=== PATIENT | female | born 1955 | race Caucasian/White ===

== ENCOUNTER 2018-10-23 17:07 | Emergency (ER) | payer OTHER ==
[2018-10-23] MEDS ORDERED: predniSONE 20 MG TAB ONE (19:44)
[2018-10-23] MEDS ORDERED: LEVALBUTEROL 1.25 MG/3 ML NEB ONE (19:44)
--- NOTE | 2018-10-23 20:17 | RAD REPORT ---
EXAM DESCRIPTION: Jose Maria De La Rosa (2 Views)10/23/2018 7:48 pm CLINICAL HISTORY: Cough COMPARISON: None FINDINGS: The lungs appear clear of acute infiltrate. The heart is normal size IMPRESSION: No acute abnormalities displayed
--- NOTE | 2018-10-23 20:21 | ER ---
Nurse's Notes [facility] Name: Dottie Cruz Age: 63 yrs Sex: Female : 1955 Arrival Date: 10/23/2018 Time: 17:09 Bed 5 Private MD: Dwight Gillespie T Diagnosis: Bronchitis, not specified as acute or chronic Presentation: 10/23 18:03 Presenting complaint: Patient states: Cough, body aches, general malaise for 3 days. aj Transition of care: patient was not received from another setting of care. Onset of symptoms was October 20, 2018. Risk Assessment: Do you want to hurt yourself or someone else? Patient reports no desire to harm self or others. Initial Sepsis Screen: Does the patient meet any 2 criteria? HR > 90 bpm. No. Patient's initial sepsis screen is negative. Does the patient have a suspected source of infection? No. Patient's initial sepsis screen is negative. Care prior to arrival: None. 18:03 Method Of Arrival: Ambulatory aj 18:03 Acuity: YANG 3 aj Triage Assessment: 18:04 General: Appears in no apparent distress. comfortable, Behavior is calm, cooperative, aj appropriate for age. Pain: Denies pain. EENT: Reports nasal congestion nasal discharge. Neuro: Level of Consciousness is awake, alert, obeys commands, Oriented to person, place, time, situation, Appropriate for age. Respiratory: Reports cough that is Airway is patent Respiratory effort is even, unlabored, Respiratory pattern is regular, symmetrical. Derm: Skin is intact, is healthy with good turgor, Skin is pink, warm \T\ dry. normal. Historical: - Allergies: 18:04 No Known Allergies; aj - Home Meds: 18:04 hydrocodone-acetaminophen 7.5-325 mg Oral tab twice a day [Active]; Baclofen Oral aj [Active]; - PMHx: 18:04 Chronic pain; aj - PSHx: 18:04 Tubal ligation; aj - Immunization history:: Adult Immunizations up to date. - Social history:: Smoking status: Patient uses tobacco products, smokes one pack cigarettes per day. - Ebola Screening: : Patient negative for fever greater than or equal to 101.5 degrees Fahrenheit, and additional compatible Ebola Virus Disease symptoms Patient denies exposure to infectious person Patient denies travel to an Ebola-affected area in the 21 days before illness onset No symptoms or risks identified at this time. Screenin:38 Abuse screen: Denies threats or abuse. Denies injuries from another. Nutritional lp1 screening: No deficits noted. Tuberculosis screening: No symptoms or risk factors identified. Fall Risk None identified. Assessment: 19:36 General: Appears in no apparent distress. Behavior is appropriate for age. Pain: lp1 Complains of pain in chest Aggravated by coughing. Neuro: Level of Consciousness is awake, alert, obeys commands, Oriented to person, place, time, situation. Cardiovascular: Patient's skin is warm and dry. Respiratory: Reports cough that is non-productive, persistent Respiratory effort is even, Respiratory pattern is regular, Breath sounds are coarse bilaterally. GI: : No signs and/or symptoms were reported regarding the genitourinary system. EENT: No signs and/or symptoms were reported regarding the EENT system. Derm: Skin is pink, warm \T\ dry. Musculoskeletal: No deficits noted. Vital Signs: 18:04 BP 155 / 93; Pulse 113; Resp 20; Temp 97.9; Pulse Ox 97% on R/A; Weight 65.77 kg; aj Height 5 ft. 0 in. (152.40 cm); 19:38 BP 153 / 97; Pulse 107; Resp 20; Pulse Ox 96% on R/A; lp1 18:04 Body Mass Index 28.32 (65.77 kg, 152.40 cm) aj ED Course: 17:09 Patient arrived in ED. sb2 17:09 Dwight Gillespie MD is Private Physician. sb2 18:04 Triage completed. aj 18:04 Arm band placed on left wrist. Patient placed in waiting room, Patient notified of wait aj time. Labs ordered per protocol. 19:06 Ike Dominique MD is Attending Physician. kdr 19:13 Beatrice Macdonald, ANTONELLA is Primary Nurse. lp1 19:38 Patient has correct armband on for positive identification. lp1 19:47 Chest Pa And Lat (2 Views) XRAY In Process Unspecified. EDMS 20:19 Dwight Gillespie MD is Referral Physician. kdr 20:30 No provider procedures requiring assistance completed. Patient did not have IV access lp1 during this emergency room visit. Administered Medications: 19:40 Drug: predniSONE 60 mg Route: PO; tl2 20:30 Follow up: Response: No adverse reaction lp1 20:00 Drug: Xopenex (3) 1.25 mg Route: Inhalation; tl2 Outcome: 20:20 Discharge ordered by . kdr 20:30 Discharged to home ambulatory. lp1 20:30 Condition: good 20:30 Discharge instructions given to patient, Instructed on discharge instructions, follow up and referral plans. medication usage, Demonstrated understanding of instructions, follow-up care, medications, Prescriptions given X x 5 20:31 Patient left the ED. lp1 Signatures: Dispatcher [employer] Maribell Meehan, RN RN Ike Ortiz MD MD kdr Pena, Laura, RN RN lp1 Alicia Katz RN RN tl2 Nicki Pedraza sb2
--- NOTE | 2018-10-23 20:21 | EDPHYS ---
Physician Documentation [facility] Name: Dottie Cruz Age: 63 yrs Sex: Female : 1955 Arrival Date: 10/23/2018 Time: 17:09 Bed 5 Private MD: Dwight Gillespie T ED Physician Ike Dominique HPI: 10/23 19:15 This 63 yrs old Female presents to ER via Ambulatory with complaints of kdr Weakness, Non-Productive Cough. 19:16 The patient or guardian reports airway noise, cough, that is intermittent, described as kdr mild, described as moderate, difficulty breathing, flu symptoms, arthralgias, myalgias, no appetite. Onset: The symptoms/episode began/occurred gradually, 3 day(s) ago. Modifying factors: The symptoms are alleviated by nothing. the symptoms are aggravated by nothing. Associated signs and symptoms: Pertinent positives: Pertinent negatives: chest pain, diarrhea, ear ache, fever, nausea, rhinorrhea, sore throat, vomiting. Severity of symptoms: At their worst the symptoms were mild moderate this morning, in the emergency department the symptoms are unchanged. The patient has not experienced similar symptoms in the past. The patient has not recently seen a physician. The patient states that she was exposed to strep in the last few days but that she does not believe she has strep. Historical: - Allergies: 18:04 No Known Allergies; aj - Home Meds: 18:04 hydrocodone-acetaminophen 7.5-325 mg Oral tab twice a day [Active]; Baclofen Oral aj [Active]; - PMHx: 18:04 Chronic pain; aj - PSHx: 18:04 Tubal ligation; aj - Immunization history:: Adult Immunizations up to date. - Social history:: Smoking status: Patient uses tobacco products, smokes one pack cigarettes per day. - Ebola Screening: : Patient negative for fever greater than or equal to 101.5 degrees Fahrenheit, and additional compatible Ebola Virus Disease symptoms Patient denies exposure to infectious person Patient denies travel to an Ebola-affected area in the 21 days before illness onset No symptoms or risks identified at this time. ROS: 19:18 Constitutional: Negative for fever, chills, and weight loss, Eyes: Negative for injury, kdr pain, redness, and discharge, Neck: Negative for injury, pain, and swelling, Cardiovascular: Negative for chest pain, palpitations, and edema, Abdomen/GI: Negative for abdominal pain, nausea, vomiting, diarrhea, and constipation, Back: Negative for injury and pain, : Negative for injury, bleeding, discharge, and swelling, MS/Extremity: Negative for injury and deformity, Skin: Negative for injury, rash, and discoloration, Neuro: Negative for headache, weakness, numbness, tingling, and seizure activity. Psych: Negative for depression, anxiety, suicide ideation, homicidal ideation, and hallucinations, Allergy/Immunology: Negative for hives, rash, and allergies, Endocrine: Negative for neck swelling, polydipsia, polyuria, polyphagia, and marked weight changes, Hematologic/Lymphatic: Negative for swollen nodes, abnormal bleeding, and unusual bruising. 19:18 ENT: Positive for nasal discharge, rhinorrhea, Negative for ear pain, Teeth pain tinnitus, sinus congestion, sinus pain. 19:18 Respiratory: Positive for cough, with no reported sputum, dyspnea on exertion, shortness of breath, at rest. wheezing, expiratory, of the right upper lobe, left upper lobe, right middle lobe, left lower lobe, right lower lobe, left posterior lower lobe, right posterior middle lobe and right posterior lower lobe, Negative for hemoptysis, orthopnea, pleurisy. Exam: 19:18 Constitutional: This is a well developed, well nourished patient who is awake, alert, kdr and in no acute distress. Head/Face: Normocephalic, atraumatic. Eyes: Pupils equal round and reactive to light, extra-ocular motions intact. Lids and lashes normal. Conjunctiva and sclera are non-icteric and not injected. Cornea within normal limits. Periorbital areas with no swelling, redness, or edema. Neck: Trachea midline, no thyromegaly or masses palpated, and no cervical lymphadenopathy. Supple, full range of motion without nuchal rigidity, or vertebral point tenderness. No Meningismus. Chest/axilla: Normal chest wall appearance and motion. Nontender with no deformity. No lesions are appreciated. Abdomen/GI: Soft, non-tender, with normal bowel sounds. No distension or tympany. No guarding or rebound. No evidence of tenderness throughout. Back: No spinal tenderness. No costovertebral tenderness. Full range of motion. Skin: Warm, dry with normal turgor. Normal color with no rashes, no lesions, and no evidence of cellulitis. MS/ Extremity: Pulses equal, no cyanosis. Neurovascular intact. Full, normal range of motion. Neuro: Awake and alert, GCS 15, oriented to person, place, time, and situation. Cranial nerves II-XII grossly intact. Motor strength 5/5 in all extremities. Sensory grossly intact. Cerebellar exam normal. Normal gait. Psych: Awake, alert, with orientation to person, place and time. Behavior, mood, and affect are within normal limits. 19:18 Cardiovascular: Rate: tachycardic, Rhythm: regular, Pulses: no pulse deficits are appreciated, Heart sounds: normal. 19:18 Respiratory: the patient does not display signs of respiratory distress, Respirations: normal, Breath sounds: rales, bronchial sounds, that are mild, that are moderate, are heard diffusely, are heard in the left lower lobe, right lower lobe, left posterior lower lobe, right posterior middle lobe and right posterior lower lobe, rhonchi, that are moderate, are located in both bases, wheezing: that is mild, is heard in the left lower lobe, right lower lobe, left posterior lower lobe, right posterior middle lobe and right posterior lower lobe, Respiratory rate: 20 Vital Signs: 18:04 BP 155 / 93; Pulse 113; Resp 20; Temp 97.9; Pulse Ox 97% on R/A; Weight 65.77 kg; aj Height 5 ft. 0 in. (152.40 cm); 19:38 BP 153 / 97; Pulse 107; Resp 20; Pulse Ox 96% on R/A; lp1 18:04 Body Mass Index 28.32 (65.77 kg, 152.40 cm) aj MDM: 20:20 Patient medically screened. kdr 20:22 Data reviewed: vital signs, nurses notes, lab test result(s), radiologic studies. kdr Counseling: I had a detailed discussion with the patient and/or guardian regarding: the historical points, exam findings, and any diagnostic results supporting the discharge/admit diagnosis, lab results, radiology results, the need for outpatient follow up. Special discussion: I discussed with the patient/guardian in detail that at this point there is no indication for admission to the hospital. It is understood, however, that if the symptoms persist or worsen the patient needs to return immediately for re-evaluation. ED course: The patient was feeling better. Will give abx since the patient is a smoker. 10/23 18:03 Order name: Flu; Complete Time: 19:06 aj 10/23 18:03 Order name: Strep; Complete Time: 19:06 aj 10/23 18:06 Order name: Chest Pa And Lat (2 Views) XRAY; Complete Time: 20:18 aj 10/23 18:43 Order name: Throat Culture EDMS Administered Medications: 19:40 Drug: predniSONE 60 mg Route: PO; tl2 20:30 Follow up: Response: No adverse reaction lp1 20:00 Drug: Xopenex (3) 1.25 mg Route: Inhalation; tl2 Disposition: 10/23/18 20:20 Discharged to Home. Impression: Bronchitis, not specified as acute or chronic. - Condition is Stable. - Discharge Instructions: How to Use an Inhaler, Upper Respiratory Infection, Adult, Acute Bronchitis, [id number]. - Prescriptions for Tessalon Perles 100 mg Oral Capsule - take 1 capsule by ORAL route every 8 hours As needed; 15 capsule. Zithromax Z- Flavio 250 mg Oral Tablet - take 1 tablet by ORAL route as directed for 5 days Day 1 - take two (2) tablets one time. Day 2, 3, 4 , 5 take one (1) tablet once daily.; 6 tablet. Medrol (Flavio) 4 mg Oral Tablets, Dose Pack - take 1 tablet by ORAL route as directed - follow package instructions; 1 packet. Albuterol Sulfate 90 mcg/actuation - inhale 1-2 puff by INHALATION route every 4-6 hours; 1 Inhaler. Guaifenesin AC 10- 100 mg/5 mL Oral Liquid - take 10 milliliter by ORAL route every 4 hours As needed; 240 milliliter. - Medication Reconciliation Form, Thank You Letter, Antibiotic Education, Prescription Opioid Use form. - Follow up: Dwight Gillespie MD; When: 2 - 3 days; Reason: If symptoms return, Further diagnostic work-up, Recheck today's complaints, Continuance of care, Re-evaluation by your physician. - Problem is new. - Symptoms have improved. Signatures: Dispatcher [employer] EDMS Maribell Cid RN RN Ike Ortiz MD MD kdr Pena, Laura, RN RN lp1 Alicia Katz RN RN tl2 Corrections: (The following items were deleted from the chart) 20:31 20:20 10/23/2018 20:20 Discharged to Home. Impression: Bronchitis, not specified as lp1 acute or chronic. Condition is Stable. Forms are Medication Reconciliation Form, Thank You Letter, Antibiotic Education, Prescription Opioid Use. Follow up: Dwigth Gillsepie; When: 2 - 3 days; Reason: If symptoms return, Further diagnostic work-up, Recheck today's complaints, Continuance of care, Re-evaluation by your physician. Problem is new. Symptoms have improved. kdr
== END 2018-10-23 20:31 | disposition home or self-care (01) ==
LOC: ER 17:07
DX: J40 Bronchitis, not specified as acute or chronic (principal); F17.210 Nicotine dependence, cigarettes, uncomplicated; G89.29 Other chronic pain; Z79.891 Long term (current) use of opiate analgesic
CPT/HCPCS: 71046; 87070; 87081; 87804; 99284; J7512

== ENCOUNTER 2019-04-18 21:57 | Emergency (ER) | payer OTHER, SELFPAY ==
[2019-04-18] MEDS ORDERED: NA CHLORIDE 0.9% 1,000 ML ONE (23:10)
[2019-04-18] MEDS ORDERED: DEXAMETHASONE 10 MG/ML VIAL ONE (23:10)
[2019-04-18] MEDS ORDERED: ONDANSETRON 4 MG/2 ML VIAL ONE (23:10)
[2019-04-18 23:22] LABS: Absolute Lymphocytes (CBC) 2.2 K/uL (0.7-4.9); Basophils % 0.9 % (0-1.3); Eosinophils % 2.8 % (0-4.4); Hematocrit 38.8 % (36.0-45.0); Lymphocytes % 34.1 % (15.3-44.8); MPV 9.5 fL (7.6-11.3); Monocytes % 7.7 % (3.3-12.3)
[2019-04-18 23:23] LABS: Protime INR 0.97
[2019-04-18 23:39] LABS: ALT/SGPT 29 U/L (12-78); AST/SGOT 16 U/L (15-37); Albumin 3.7 g/dL (3.4-5.0); Alkaline Phosphatase 86 U/L (45-117); BUN Blood Urea Nitrogen 18 mg/dL (7-18); Bicarbonate 24 mmol/L (21-32); Bilirubin Direct < 0.1 mg/dL (0-0.2); Bilirubin Total 0.2 mg/dL (0.2-1.0); Glucose Level 98 mg/dL (74-106); Potassium 3.7 mmol/L (3.5-5.1); Protein, Total 6.6 g/dL (6.4-8.2); Sodium Level 143 mmol/L (136-145)
[2019-04-19 01:08] LABS: Urine Blood TRACE (NEG); Urine Glucose NEGATIVE (NEG); Urine Protein NEGATIVE (NEG); Urine Specific Gravity 1.015 (1.005-1.030)
--- NOTE | 2019-04-19 01:18 | ER ---
Nurse's Notes [facility] Name: Dottie Cruz Age: 64 yrs Sex: Female : 1955 Arrival Date: 04/18/2019 Time: 21:58 Bed 18 Private MD: Dwight Gillespie T Diagnosis: chronic headaches;elevated blood pressure (Hypertension) Presentation: 04/18 22:00 Presenting complaint: Patient states: "I've been having headache, blurred vision and cc3 chest tightness all day today and when I checked my blood pressure at home it was high". Transition of care: patient was not received from another setting of care. Onset of symptoms was April 18, 2019. Risk Assessment: Do you want to hurt yourself or someone else? Patient reports no desire to harm self or others. Initial Sepsis Screen: Does the patient meet any 2 criteria? No. Patient's initial sepsis screen is negative. Does the patient have a suspected source of infection? No. Patient's initial sepsis screen is negative. Care prior to arrival: Medication(s) given: Tylenol, 2 tabs about an hour ago at home took BC powder (Aspirin powder) at home an hour ago; Carvedilol 3.125 mg taken at 1700H today. 22:00 Method Of Arrival: Ambulatory cc3 22:00 Acuity: YANG 3 cc3 Triage Assessment: 22:00 General: Appears in no apparent distress. uncomfortable, Behavior is calm, cooperative, cc3 appropriate for age. Pain: Complains of pain in head. EENT: Reports blurred vision since whole day today. Neuro: Level of Consciousness is awake, alert, obeys commands, Oriented to person, place, time, situation, Appropriate for age. Cardiovascular: Capillary refill < 3 seconds Patient's skin is warm and dry. Respiratory: Airway is patent Respiratory effort is even, unlabored, Respiratory pattern is regular, symmetrical. GI: Abdomen is round non-distended. : No signs and/or symptoms were reported regarding the genitourinary system. Derm: Skin is intact, is healthy with good turgor, Skin is pink, warm \\T\\ dry. normal. Musculoskeletal: Circulation, motion, and sensation intact. Range of motion: intact in all extremities. Historical: - Allergies: 22:00 No Known Allergies; cc3 - Home Meds: 22:00 Baclofen Oral [Active]; hydrocodone-acetaminophen 7.5-325 mg Oral tab twice a day cc3 [Active]; carvedilol 3.125 mg oral tab 1 tab 2 times per day [Active]; - PMHx: 22:00 Chronic pain; Hypertension; torn ACL; herniated disk; cc3 - PSHx: 22:00 Tubal ligation; cc3 - Immunization history:: Adult Immunizations not up to date. - Social history:: Smoking status: Patient uses tobacco products, smokes one pack cigarettes per day. - Ebola Screening: : No symptoms or risks identified at this time. - Family history:: not pertinent. - Hospitalizations: : No recent hospitalization is reported. Screenin:00 Abuse screen: Denies threats or abuse. Denies injuries from another. Nutritional cc3 screening: No deficits noted. Tuberculosis screening: No symptoms or risk factors identified. Fall Risk Ambulatory Aid- None/Bed Rest/Nurse Assist (0 pts). Gait- Normal/Bed Rest/Wheelchair (0 pts) Mental Status- Oriented to own ability (0 pts). Assessment: 22:00 Pain: Complains of pain in head Pain radiates to bilateral eyes Pain currently is 5 out cc3 of 10 on a pain scale. Quality of pain is described as aching, Pain began headache whole day today. 23:30 Reassessment: Patient appears in no apparent distress at this time. Patient and/or cc3 family updated on plan of care and expected duration. Pain level reassessed. Patient is alert, oriented x 3, equal unlabored respirations, skin warm/dry/pink. 04/19 00:10 Reassessment: Patient appears in no apparent distress at this time. Patient and/or cc3 family updated on plan of care and expected duration. Pain level reassessed. Patient is alert, oriented x 3, equal unlabored respirations, skin warm/dry/pink. Patient taken by sound effects technician to their department by wheelchair. Patient denies pain at this time. Patient states feeling better. Patient states symptoms have improved. 00:32 Reassessment: Patient appears in no apparent distress at this time. Patient and/or cc3 family updated on plan of care and expected duration. Pain level reassessed. Patient is alert, oriented x 3, equal unlabored respirations, skin warm/dry/pink. Patient came back from CT scan department, awaiting result. 01:07 Reassessment: Patient appears in no apparent distress at this time. Patient and/or cc3 family updated on plan of care and expected duration. Pain level reassessed. Patient is alert, oriented x 3, equal unlabored respirations, skin warm/dry/pink. 01:30 Reassessment: Patient appears in no apparent distress at this time. Patient and/or cc3 family updated on plan of care and expected duration. Pain level reassessed. Patient is alert, oriented x 3, equal unlabored respirations, skin warm/dry/pink. Dr. Hook discharged the patient home with prescription given. IV cannula removed and patient left ER vitally stable and ambulatory. Patient denies pain at this time. Patient states feeling better. Patient states symptoms have improved. Vital Signs: 04/18 22:00 BP 188 / 113; Pulse 91; Resp 20 S; Temp 98.2(O); Pulse Ox 99% on R/A; Weight 65.32 kg cc3 (R); Height 5 ft. 0 in. (152.40 cm) (R); Pain 5/10; 22:18 BP 163 / 92; Pulse 85; Resp 19 S; Pulse Ox 99% on R/A; cc3 23:15 BP 153 / 93; Pulse 72; Resp 18 S; Pulse Ox 96% on R/A; cc3 04/19 00:00 BP 154 / 74; Pulse 66; Resp 18 S; Pulse Ox 96% on R/A; Pain 2/10; cc3 00:45 BP 137 / 82; Pulse 77; Resp 17 S; Pulse Ox 96% on R/A; Pain 2/10; cc3 01:05 BP 152 / 92; Pulse 65; Resp 17 S; Pulse Ox 97% on R/A; Pain 2/10; cc3 01:20 BP 153 / 92; Pulse 72; Resp 19 S; Pulse Ox 96% on R/A; Pain 2/10; cc3 04/18 22:00 Body Mass Index 28.12 (65.32 kg, 152.40 cm) 3 ED Course: 04/18 21:58 Patient arrived in ED. do 21:59 Dwight Gillespie MD is Private Physician. do 22:00 Desiree Whelan is Primary Nurse. cc3 22:00 Patient maintains SpO2 saturation greater than 95% on room air. cc3 22:00 Arm band placed on right wrist. Patient notified of wait time. EKG completed in triage. cc3 Results shown to MD. 22:00 Patient has correct armband on for positive identification. Placed in gown. Bed in low cc3 position. Call light in reach. Side rails up X 1. pebble mill operator on. Pulse ox on. NIBP on. 22:12 Triage completed. cc3 22:12 Devin Hook MD is Attending Physician. wa 22:20 EKG done, by ED staff, reviewed by Devin Hook MD. ag4 23:05 Inserted saline lock: 20 gauge in right antecubital area, using aseptic technique. cc3 Blood collected. 04/19 00:50 Head Brain Wo Cont In Process Unspecified. EDMS 01:17 Derian Mock MD is Referral Physician. :30 No provider procedures requiring assistance completed. IV discontinued, intact, cc3 bleeding controlled, No redness/swelling at site. Pressure dressing applied. Administered Medications: 04/18 23:05 Drug: NS 0.9% 1000 ml Route: IV; Rate: 1 bolus; Site: right antecubital; cc3 04/19 00:15 Follow up: Response: No adverse reaction; IV Status: Completed infusion; IV Intake: cc3 1000ml 04/18 23:05 Drug: Decadron - Dexamethasone 10 mg Route: IVP; Site: right antecubital; cc3 04/19 00:01 Follow up: Response: No adverse reaction; Pain is decreased cc3 04/18 23:10 Drug: Zofran 4 mg Route: IVP; Site: right antecubital; cc3 04/19 00:02 Follow up: Response: No adverse reaction; Nausea is decreased cc3 Intake: 00:15 IV: 1000ml; Total: 1000ml. cc3 Outcome: 01:18 Discharge ordered by . :30 Discharged to home ambulatory. cc3 01:30 Condition: stable 01:30 Discharge instructions given to patient, Instructed on discharge instructions, follow up and referral plans. medication usage, Demonstrated understanding of instructions, follow-up care, medications, Prescriptions given X 1. 01:31 Patient left the ED. cc3 Signatures: Dispatcher [employer] EDMD Lida Fragoso William, MD MD wa Cordel, Desiree cc3 Avel Eastman ag4 Corrections: (The following items were deleted from the chart) 04/18 22:22 22:00 BP 188 / 113; Pulse 91bpm; Resp 20bpm; Spontaneous; Pulse Ox 99% RA; Temp 98.2F cc3 Oral; 65.32 kg Reported; Height 5 ft. 0 in. Reported; BMI: 28.1; cc3 22:23 22:00 Care prior to arrival: Medication(s) given: Carvedilol 3.125 mg at 1700H today cc3cc3 04/19 00:28 00:00 BP 154 / 74; Pulse 66bpm; Resp 18bpm; Spontaneous; Pulse Ox 96% RA; 3 cc3 01:06 01:05 BP 152 / 92; Pulse 65bpm; Resp 17bpm; Spontaneous; Pulse Ox 100% RA; 3 cc3 01:38 01:05 BP 152 / 92; Pulse 65bpm; Resp 17bpm; Spontaneous; Pulse Ox 97% RA; 3 cc3 01:38 00:45 BP 137 / 82; Pulse 77bpm; Resp 17bpm; Spontaneous; Pulse Ox 96% RA; 3 cc3 01:38 01:20 BP 153 / 92; Pulse 72bpm; Resp 19bpm; Spontaneous; Pulse Ox 96% RA; 3 cc3
--- NOTE | 2019-04-19 01:18 | EDPHYS ---
Physician Documentation [facility] Name: Dottie Cruz Age: 64 yrs Sex: Female : 1955 Arrival Date: 04/18/2019 Time: 21:58 Bed 18 Private MD: Dwight Gillespie T ED Physician Devin Hook HPI: 04/18 22:59 This 64 yrs old Female presents to ER via Ambulatory with complaints of High wa Blood Pressure, Blurred Vision, Chest Pain. 22:59 This 64 yrs old Female presents to ER via Ambulatory with complaints of High wa Blood Pressure, Blurred Vision, Chest Pain. 23:01 The patient complains of pain to the generalized. The patient describes the headache as wa aching. Onset: The symptoms/episode began/occurred 3 month(s) ago. Associated signs and symptoms: The patient has no apparent associated signs or symptoms, Pertinent positives: . Severity of symptoms: At its worst the pain was moderate, in the emergency department the pain is unchanged. Headache History: The patient has had previous headaches and this one is similar to previous episodes. The symptoms are alleviated by nothing. the symptoms are aggravated by nothing. The patient has experienced similar episodes in the past, multiple times. The patient has not recently seen a physician. states placed on coreg for BP but believes not working as having HAs for several weeks. takes BC powder for it. denies vomiting. denies dizziness. states GARCIA 5/10 today. has been checking BP today and have stayed consistently elevated. . Historical: - Allergies: 22:00 No Known Allergies; cc3 - Home Meds: 22:00 Baclofen Oral [Active]; hydrocodone-acetaminophen 7.5-325 mg Oral tab twice a day cc3 [Active]; carvedilol 3.125 mg oral tab 1 tab 2 times per day [Active]; - PMHx: 22:00 Chronic pain; Hypertension; torn ACL; herniated disk; cc3 - PSHx: 22:00 Tubal ligation; cc3 - Immunization history:: Adult Immunizations not up to date. - Social history:: Smoking status: Patient uses tobacco products, smokes one pack cigarettes per day. - Ebola Screening: : No symptoms or risks identified at this time. - Family history:: not pertinent. - Hospitalizations: : No recent hospitalization is reported. ROS: 23:04 Constitutional: Negative for fever, chills, and weight loss, Eyes: Negative for injury, wa pain, redness, and discharge, ENT: Negative for injury, pain, and discharge, Neck: Negative for injury, pain, and swelling, Cardiovascular: Negative for chest pain, palpitations, and edema, Respiratory: Negative for shortness of breath, cough, wheezing, and pleuritic chest pain, Abdomen/GI: Negative for abdominal pain, nausea, vomiting, diarrhea, and constipation, Back: Negative for injury and pain, : Negative for injury, bleeding, discharge, and swelling, MS/Extremity: Negative for injury and deformity, Skin: Negative for injury, rash, and discoloration. 23:04 Neuro: Positive for headache, Negative for altered mental status, dizziness, syncope. 23:04 All other systems are negative. Exam: 23:04 Constitutional: This is a well developed, well nourished patient who is awake, alert, wa and in no acute distress. Head/Face: Normocephalic, atraumatic. Eyes: Pupils equal round and reactive to light, extra-ocular motions intact. Lids and lashes normal. Conjunctiva and sclera are non-icteric and not injected. Cornea within normal limits. Periorbital areas with no swelling, redness, or edema. ENT: Nares patent. No nasal discharge, no septal abnormalities noted. Tympanic membranes are normal and external auditory canals are clear. Oropharynx with no redness, swelling, or masses, exudates, or evidence of obstruction, uvula midline. Mucous membranes moist. Neck: Trachea midline, no thyromegaly or masses palpated, and no cervical lymphadenopathy. Supple, full range of motion without nuchal rigidity, or vertebral point tenderness. No Meningismus. Chest/axilla: Normal chest wall appearance and motion. Nontender with no deformity. No lesions are appreciated. Cardiovascular: Regular rate and rhythm with a normal S1 and S2. No gallops, murmurs, or rubs. Normal PMI, no JVD. No pulse deficits. Respiratory: Lungs have equal breath sounds bilaterally, clear to auscultation and percussion. No rales, rhonchi or wheezes noted. No increased work of breathing, no retractions or nasal flaring. Abdomen/GI: Soft, non-tender, with normal bowel sounds. No distension or tympany. No guarding or rebound. No evidence of tenderness throughout. Back: No spinal tenderness. No costovertebral tenderness. Full range of motion. Skin: Warm, dry with normal turgor. Normal color with no rashes, no lesions, and no evidence of cellulitis. MS/ Extremity: Pulses equal, no cyanosis. Neurovascular intact. Full, normal range of motion. Psych: Awake, alert, with orientation to person, place and time. Behavior, mood, and affect are within normal limits. 23:04 Neuro: Orientation: is normal, Mentation: is normal, Memory: is normal, Cranial nerves: grossly normal, Cerebellar function: is grossly normal, Motor: is normal. Vital Signs: 22:00 BP 188 / 113; Pulse 91; Resp 20 S; Temp 98.2(O); Pulse Ox 99% on R/A; Weight 65.32 kg cc3 (R); Height 5 ft. 0 in. (152.40 cm) (R); Pain 5/10; 22:18 BP 163 / 92; Pulse 85; Resp 19 S; Pulse Ox 99% on R/A; cc3 23:15 BP 153 / 93; Pulse 72; Resp 18 S; Pulse Ox 96% on R/A; cc3 04/19 00:00 BP 154 / 74; Pulse 66; Resp 18 S; Pulse Ox 96% on R/A; Pain 2/10; cc3 00:45 BP 137 / 82; Pulse 77; Resp 17 S; Pulse Ox 96% on R/A; Pain 2/10; cc3 01:05 BP 152 / 92; Pulse 65; Resp 17 S; Pulse Ox 97% on R/A; Pain 2/10; cc3 01:20 BP 153 / 92; Pulse 72; Resp 19 S; Pulse Ox 96% on R/A; Pain 2/10; cc3 04/18 22:00 Body Mass Index 28.12 (65.32 kg, 152.40 cm) 3 MDM: 04/18 22:12 Patient medically screened. ut 23:04 Differential diagnosis: HAs. h/o HTN. will check head CT as has not had GARCIA evaluated in ut the past. will treat GARCIA and reassess. discussed smoking cessation. may reeval coreg. 04/19 01:15 Data reviewed: vital signs, nurses notes, lab test result(s), EKG. Test interpretation: wa by ED physician or midlevel provider: head CT: no acute process. labs noted WNL. Response to treatment: the patient's symptoms have markedly improved after treatment. ED course: BP at time of d/c 152/90. . ED course: advised against taking BC powder. will change BP med to HCTZ as pt advises not tolerating coreg and believes not working well. again, advised smoking cessation. 04/18 23:18 Order name: Basic Metabolic Panel; Complete Time: 01:10 EDMS 04/18 23:18 Order name: Liver (Hepatic) Function; Complete Time: 01:10 EDMS 04/18 23:18 Order name: Head Brain Wo Cont EDMS 04/18 23:18 Order name: CBC with Automated Diff; Complete Time: 01:10 EDMS 04/18 23:18 Order name: Protime (+INR); Complete Time: 01:10 EDWI 04/18 23:35 Order name: Urine Dipstick--Ancillary (enter results); Complete Time: 01:10 cm6 04/18 22:31 Order name: Cardiac monitoring; Complete Time: 22:32 ut 04/18 22:31 Order name: IV Saline Lock; Complete Time: 23:16 ut 04/18 22:31 Order name: Labs collected and sent; Complete Time: 23:16 ut 04/18 22:31 Order name: NPO; Complete Time: 22:32 ut 04/18 22:31 Order name: O2 Sat Monitoring; Complete Time: 22:32 ut 04/18 22:31 Order name: Urine Dipstick-Ancillary (obtain specimen); Complete Time: 23:35 ut Administered Medications: 04/18 23:05 Drug: NS 0.9% 1000 ml Route: IV; Rate: 1 bolus; Site: right antecubital; 3 04/19 00:15 Follow up: Response: No adverse reaction; IV Status: Completed infusion; IV Intake: cc3 1000ml 04/18 23:05 Drug: Decadron - Dexamethasone 10 mg Route: IVP; Site: right antecubital; cc3 04/19 00:01 Follow up: Response: No adverse reaction; Pain is decreased [facility] 04/18 23:10 Drug: Zofran 4 mg Route: IVP; Site: right antecubital; cc3 04/19 00:02 Follow up: Response: No adverse reaction; Nausea is decreased cc3 Disposition: 04/19/19 01:18 Discharged to Home. Impression: chronic headaches, elevated blood pressure (Hypertension). - Condition is Stable. - Discharge Instructions: General Headache Without Cause, Wuir-aj-Vzur. - Prescriptions for hydrochlorothiazide 25 mg Oral tablet - take 1 tablet by ORAL route once daily; 30 tablet. - Medication Reconciliation Form, Thank You Letter, Antibiotic Education, Prescription Opioid Use form. - Follow up: Derian Mock MD; When: 2 - 3 days; Reason: Recheck today's complaints. - Notes: take tylenol and motrin for headache if needed as discussed. do not take BC powder for headaches as they may have too much aspirin in them. take the HCTZ for your blood pressure and stop coreg. see your doctor for further assessment as discussed by documenting your blood pressures while taking HCTZ Signatures: Dispatcher [employer] EDMS Devin Hook MD MD wa Cordel, Charlene cc3 Corrections: (The following items were deleted from the chart) 00:59 00:44 PROTIME (+INR)+COAG.LAB.BRZ ordered. EDMS EDMS 01:00 00:44 BASIC METABOLIC PANEL+C.LAB.BRZ ordered. EDWI EDMS 01:00 00:44 CBC+H.LAB.BRZ ordered. EDMS EDMS 01:00 00:44 HEPATIC FUNCTION+C.LAB.BRZ ordered. EDWI EDMS 01:31 01:18 04/19/2019 01:18 Discharged to Home. Impression: chronic headaches; elevated cc3 blood pressure (Hypertension). Condition is Stable. Forms are Medication Reconciliation Form, Thank You Letter, Antibiotic Education, Prescription Opioid Use. Follow up: Derian Mock; When: 2 - 3 days; Reason: Recheck today's complaints. pete
--- NOTE | 2019-04-19 11:01 | RAD REPORT ---
EXAM DESCRIPTION: Head Brain Wo Cont CLINICAL HISTORY: 64 years Female headache COMPARISON: None TECHNIQUE: Images were obtained in axial, sagittal, and coronal planes. This exam was performed according to our departmental dose-optimization program which includes use of Automated Exposure Control, adjustment of the mA and/or kV according to patient size and/or use of i terative reconstruction technique. FINDINGS: Ventricular system appears normal. No abnormal areas of increased or decreased attenuation are seen involving the brain parenchyma. No e xtra-axial fluid collections noted. No evidence for skull fracture. Symmetric aeration mastoid air cells bilaterally. IMPRESSION: No acute intracranial abnormality. No evidence for hemorrhage, mass lesion, or large acu te infarction. Electronically signed by: Shena Sanchez MD 04/19/2019 12:54 AM CDT Due to temporary technical issues with the PACS/Fluency reporting system, reports are being signed by the in house radiologist as a courtesy to ensure prompt reporting. The interpreting radiologist is f ully responsible for the content of the report.
--- NOTE | 2019-04-20 14:54 | EKG ---
Test Date: 2019-04-18 Test Time: 22:13:21 Rn Wound Care: AG3 MEASUREMENT RESULTS: Intervals: Rate: 85 TX: 144 QRSD: 88 QT: 378 QTc: 449 Alexis: P: 62 TX: 144 QRS: 45 T: 31 INTERPRETIVE STATEMENTS: Normal sinus rhythm Nonspecific ST abnormality Abnormal ECG Compared to ECG 08/04/2016 13:01:16 ST (T wave) deviation now present Electronically Signed On 04-20-19 14:47:53 CDT by Fawad Mauricio
== END 2019-04-19 01:31 | disposition home or self-care (01) ==
LOC: ER 21:57
DX: I10 Essential (primary) hypertension (principal); G89.29 Other chronic pain; F17.210 Nicotine dependence, cigarettes, uncomplicated
CPT/HCPCS: 96361; 93005; 85025; 80048; 36415; 85610; 80076; 81003; 70450; 96375; 96374; 99285; J1100; J7030; J2405

== ENCOUNTER 2019-05-28 12:24 | Emergency (ER) | payer OTHER ==
[2019-05-28] MEDS ORDERED: MORPHINE 2 MG/ML SYR ONE (13:19)
[2019-05-28] MEDS ORDERED: MORPHINE 4 MG/ML SYR ONE ×3 (13:19→16:20)
--- NOTE | 2019-05-28 13:42 | RAD REPORT ---
EXAM DESCRIPTION: CT - Head C Spine Mpr Wo Con - 05/28/2019 1:09 pm CLINICAL HISTORY: Head and neck injury status post fall. Head and neck pain COMPARISON: 2016 TECHNIQUE: Computed axial tomography of the head and cervical spine was obtained. Sagittal and coronal reconstruction was performed. All CT scans are performed using dose optimization technique as appropriate and may include automated exposure control or mA/KV adjustment according to patient size. FINDINGS: An intracranial bleed is not seen. The ventricles are normal in caliber. An extra-axial fl uid collection is not noted.Fluid within the visualized sinuses and mastoids is not seen A cervical fracture is not visualized. No dislocation is noted. Slight anterior subluxation of C3 on C4 and C4 on C5 is unchanged. Spondylosis most marked at C6-7 IMPRESSION: No acute intracranial abnormality is seen. A cervical fracture is not visualized. If the patient continues to have symptoms to suggest intracra nial /spinal cord pathology then MRI would be recommended
[2019-05-28 14:12] LABS: Absolute Lymphocytes (CBC) 1.6 K/uL (0.7-4.9); Basophils % 0.8 % (0-1.3); Hematocrit 37.1 % (36.0-45.0); Lymphocytes % 18.4 % (15.3-44.8); RBC Red Blood Cell Count 3.81 M/uL (3.86-4.86)
[2019-05-28 14:19] LABS: BUN Blood Urea Nitrogen 15 mg/dL (7-18); Bicarbonate 27 mmol/L (21-32); Glucose Level 91 mg/dL (74-106); Potassium 4.1 mmol/L (3.5-5.1); Sodium Level 143 mmol/L (136-145)
[2019-05-28] MEDS ORDERED: PROPOFOL 200 MG/20 ML VIAL IV ONE (14:25)
[2019-05-28] MEDS ORDERED: NA CHLORIDE 0.9% 1,000 ML ONE (14:25)
--- NOTE | 2019-05-28 14:35 | RAD REPORT ---
EXAM DESCRIPTION: RAD - Ankle Right 3 View - 05/28/2019 1:07 pm CLINICAL HISTORY: Right ankle pain status post fall FINDINGS: Comminuted fracture involves the distal diaphysis right fibula. Several avulsion fracture fragments are present. Angulation is present at the fracture site. Comminuted fracture involves the distal metaphysis right tibia with moderate to marked displacement o f fracture fragments and angulation present at the fracture site. Cortical regularity of the posterio r malleolus may indicate an additional nondisplaced fracture. No dislocation seen
--- NOTE | 2019-05-28 14:42 | RAD REPORT ---
EXAM DESCRIPTION: Jose Maria Single View05/28/2019 1:32 pm CLINICAL HISTORY: Chest pain COMPARISON: September 2018 FINDINGS: Mediastinum is prominent. An area of subsegmental atelectasis is present within the mid left lung. Right lung appears clear. Th e heart is normal size IMPRESSION: Mediastinum is prominent. I suspect this is secondary to technique, positioning and med iastinal fat. PA and lateral chest series recommended for further evaluation
--- NOTE | 2019-05-28 15:18 | RAD REPORT ---
EXAM DESCRIPTION: RAD - Ankle Right 2 View - 05/28/2019 2:55 pm FINDINGS: Frontal and lateral views obtained labeled post reduction. Angulation of the fibula has been improved slightly. Lateral displacement overall for the distal tibi a fracture fragment has not changed. Displacement of the proximal fibula fracture not clearly differe nt. Cast material is now in place.
--- NOTE | 2019-05-28 15:58 | ER ---
Nurse's Notes [facility] Name: Dottie Cruz Age: 64 yrs Sex: Female : 1955 Arrival Date: 05/28/2019 Time: 12:28 Bed 4 Private MD: Diagnosis: Fall (on) (from) other stairs and steps;Tibial Plafond fracture, distal fibular fracture Presentation: 05/28 12:28 Presenting complaint: Patient states: Fell 2 ft off of ladder suffering injury to right aj ankle and hitting right outer eye on concrete. No LOC. 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 Mechanism of Injury: Fall from ladder approximately 2 feet. Trauma event details: Injury occurred in the [facility], Injury occurred: at home. Injury occurred: May 28, 2019 Injury occurred at: 11:30. 12:28 Method Of Arrival: EMS: [facility] 12:28 Acuity: YANG 3 12:37 Transition of care: patient was not received from another setting of care. Onset of aj symptoms was May 28, 2019. Risk Assessment: Do you want to hurt yourself or someone else? Patient reports no desire to harm self or others. Initial Sepsis Screen: Does the patient meet any 2 criteria? No. Patient's initial sepsis screen is negative. Does the patient have a suspected source of infection? No. Patient's initial sepsis screen is negative. Care prior to arrival: Splint applied. Medication(s) given: fentanyl 100 mcg IVP IV initiated. 20 GA, in the right forearm. Trauma Activation: Not Applicable Physician: ED Physician; Name: ; Notified At: ; Arrived At: Physician: General Surgeon; Name: ; Notified At: ; Arrived At: Physician: Radiology; Name: ; Notified At: ; Arrived At: Physician: Respiratory; Name: ; Notified At: ; Arrived At: Physician: Lab; Name: ; Notified At: ; Arrived At: Historical: - Allergies: 12:38 No Known Allergies; aj - Home Meds: 12:38 Baclofen Oral [Active]; Metoprolol Tartrate Oral [Active]; aj - PMHx: 12:38 Chronic pain; herniated disk; Hypertension; torn ACL; aj - PSHx: 12:38 Tubal ligation; aj - Immunization history: Last tetanus immunization: - up to date. - Social history:: Smoking status: Patient/guardian denies using tobacco. - Ebola Screening: : Patient negative for fever greater than or equal to 101.5 degrees Fahrenheit, and additional compatible Ebola Virus Disease symptoms Patient denies exposure to infectious person Patient denies travel to an Ebola-affected area in the 21 days before illness onset No symptoms or risks identified at this time. Screenin:35 Abuse screen: Denies threats or abuse. Denies injuries from another. Tuberculosis aj screening: No symptoms or risk factors identified. Primary Survey: 12:35 NO uncontrolled hemorrhage observed. Breathing/Chest: Respiratory pattern: regular, no aj respiratory pattern noted, Respiratory effort: spontaneous, unlabored. Circulation: Skin color: pink. Disability Alert. Exposure/Environment: There is no evidence of uncontrolled external bleeding. Assessment: 12:28 General: Appears in no apparent distress. uncomfortable, Behavior is calm, cooperative, aj appropriate for age. Pain: Complains of pain in right ankle and anterior aspect of right ankle. Neuro: Level of Consciousness is awake, alert, obeys commands, Oriented to person, place, time, situation, Appropriate for age. Respiratory: Airway is patent Respiratory effort is even, unlabored, Respiratory pattern is regular, symmetrical. Derm: Skin is intact, is healthy with good turgor, Skin is pink, warm \T\ dry. normal. Musculoskeletal: Bony deformity noted of right ankle Swelling present in right ankle. 14:18 Reassessment: Patient is alert, oriented x 3, equal unlabored respirations, skin aa5 warm/dry/pink. Consent for conscious sedation was signed by patient . 14:18 Cardiovascular: Rhythm is sinus bradycardia. aa5 14:43 Reassessment: Pt drowsy but opens eyes to verbal stimuli. Respirations are even and aa5 unlabored, skin is pink/warm/dry. Sinus bradycardia on monitor. Will continue to monitor at bedside. . 14:51 Reassessment: Pt awake, alert, oriented x 3, equal unlabored respirations, skin is aa5 pink/warm/dry. Sinus Bradycardia on monitor. . 14:58 Reassessment: Patient is alert, oriented x 3, equal unlabored respirations, skin aa5 warm/dry/pink. Pt requesting pain medication. LOCATION DIRECTOR was notified. . Vital Signs: 12:35 BP 133 / 85; Pulse 65; Resp 20; Temp 98.7; Pulse Ox 94% on R/A; Weight 65.77 kg; Height aj 5 ft. 0 in. (152.40 cm); Pain 4/10; 13:43 BP 133 / 85; Pulse 70; Resp 18; Pulse Ox 96% on R/A; aj 14:30 BP 158 / 82; Pulse 55; Resp 18 S; Temp 98.0(TE); Pulse Ox 99% on 2 lpm NC; aa5 14:38 BP 145 / 100; Pulse 60; Resp 19 S; Pulse Ox 100% on 2 lpm NC; aa5 14:40 BP 158 / 79; Pulse 58; Resp 18 S; Pulse Ox 100% on 2 lpm NC; aa5 14:43 BP 158 / 79; Pulse 59; Resp 16 S; Pulse Ox 100% on 2 lpm NC; aa5 14:46 BP 117 / 55; Pulse 56; Resp 18 S; Pulse Ox 100% on 2 lpm NC; aa5 14:51 BP 131 / 75; Pulse 56; Resp 18 S; Pulse Ox 100% on 2 lpm NC; aa5 14:58 BP 155 / 80; Pulse 58; Resp 16 S; Pulse Ox 100% on 2 lpm NC; aa5 12:35 Body Mass Index 28.32 (65.77 kg, 152.40 cm) aj Rebecca Coma Score: 12:35 Eye Response: spontaneous(4). Verbal Response: oriented(5). Motor Response: obeys aj commands(6). Total: 15. Trauma Score (Adult): 12:35 Eye Response: spontaneous(1); Verbal Response: oriented(1); Motor Response: obeys aj commands(2); Systolic BP: > 89 mm Hg(4); Respiratory Rate: 10 to 29 per min(4); Rebecca Score: 15; Trauma Score: 12 ED Course: 12:28 Patient arrived in ED. aj 12:30 Triage completed. aj 12:37 Patient maintains SpO2 saturation greater than 95% on room air. aj 12:38 Arm band placed on left wrist. Patient placed in an exam room. aj 12:39 Maribell Cid RN is Primary Nurse. aj 12:40 [facility]ush[facility] snw 12:40 Ike Dominique MD is Attending Physician. snw 13:05 Ankle Right 3 View XRAY In Process Unspecified. EDMS 13:10 CT Head C Spine In Process Unspecified. EDMS 13:34 Chest Single View XRAY In Process Unspecified. EDMS 14:43 Assist provider with reduction of right ankle using manipulation, Set up for procedure. aa5 Performed by Ike Dominique MD Immobilized with long posterior leg splint Assist provider with conscious sedation monitoring, started at 1437 and completed at 1443. 14:53 Ankle Right 2 View XRAY In Process Unspecified. EDMS 15:26 initiated a transfer with Hilda from the [facility]. eb 15:51 administrative approval given by Hilda Sharma Process Controller Social Services Specialist. patient eb has been accepted to [facility] ER. Lucho Cunningham the trauma orthopedic solar project coordination specialist has accepted the patient without conference. report to be called to [phone]. 15:52 CT Chest, Abdomen, Pelvis - W/Contrast In Process Unspecified. EDMS 17:40 Patient transferred, IV remains in place. intact. aj Administered Medications: 13:31 Drug: morphine 5 mg Route: IM; Site: right deltoid; aj 16:25 Follow up: Response: Pain is decreased aj 14:37 Drug: Propofol 100 mg {Note: administered by Dr. Dominique .} Route: IVP; Site: right aa5 forearm; 16:24 Follow up: Response: No adverse reaction aj 15:39 Drug: morphine 4 mg Route: IVP; Site: right antecubital; aj 16:24 Follow up: Response: Pain is decreased aj 16:24 Drug: Ativan 2 mg Route: PO; aj 17:36 Follow up: Response: No adverse reaction aj 16:24 Drug: morphine 4 mg Route: IVP; Site: right forearm; aj 17:39 Follow up: Response: No adverse reaction aj 17:30 Drug: Tetanus-Diphtheria Toxoid Adult 0.5 ml {Bench [employer]: [employer]. Exp: aj 01/16/2021. Lot #: [id number]. } Route: IM; Site: right deltoid; 17:39 Drug: fentaNYL (PF) 25 mcg Route: IVP; Site: right antecubital; aj 17:39 Follow up: Response: Medication administered at discharge. aj Outcome: 15:57 ER care complete, transfer ordered by MD. snw 17:40 Transferred by ground EMS to [facility], Transfer form completed. X-rays sent aj w/ patient. 17:40 Condition: good 17:40 Instructed on the need for transfer. 17:40 Patient left the ED. digna Signatures: Dispatcher [employer] Maribell Meehan, RN RN Khushboo Richmond, COVERING MACHINE OPERATOR-C COVERING MACHINE OPERATOR-Csnw Nette Mosley RN RN aa5 Mar Ann Corrections: (The following items were deleted from the chart) 12:38 12:28 Care prior to arrival: None. digna sawyer 15:22 14:53 BP 131 / 75; Pulse 56bpm; Resp 18bpm; Pulse Ox 100% 3 lpm Nasal Cannula; digna aa5
--- NOTE | 2019-05-28 15:59 | EDPHYS ---
Physician Documentation [facility] Name: Dottie Cruz Age: 64 yrs Sex: Female : 1955 Arrival Date: 05/28/2019 Time: 12:28 Bed 4 Private MD: ED Physician Ike Dominique HPI: 05/28 12:57 This 64 yrs old Female presents to ER via EMS with complaints of Fall Injury. snw 12:57 Details of fall: The patient fell from a height, from a ladder, approximately 2 feet. snw Onset: The symptoms/episode began/occurred suddenly, just prior to arrival. Associated injuries: The patient sustained injury to the head, contusion, right elbow, abrasion, right ankle, decreased range of motion, deformity, obvious fracture, painful injury, swelling. Historical: - Allergies: 12:38 No Known Allergies; aj - Home Meds: 12:38 Baclofen Oral [Active]; Metoprolol Tartrate Oral [Active]; aj - PMHx: 12:38 Chronic pain; herniated disk; Hypertension; torn ACL; aj - PSHx: 12:38 Tubal ligation; aj - Immunization history: Last tetanus immunization: - up to date. - Social history:: Smoking status: Patient/guardian denies using tobacco. - Ebola Screening: : Patient negative for fever greater than or equal to 101.5 degrees Fahrenheit, and additional compatible Ebola Virus Disease symptoms Patient denies exposure to infectious person Patient denies travel to an Ebola-affected area in the 21 days before illness onset No symptoms or risks identified at this time. ROS: 12:53 Constitutional: Negative for fever, chills, and weight loss, Eyes: Negative for injury, snw pain, redness, and discharge, ENT: Negative for injury, pain, and discharge, Neck: Negative for injury, pain, and swelling, Cardiovascular: Negative for chest pain, palpitations, and edema, Respiratory: Negative for shortness of breath, cough, wheezing, and pleuritic chest pain, Abdomen/GI: Negative for abdominal pain, nausea, vomiting, diarrhea, and constipation, Back: Negative for injury and pain, : Negative for injury, bleeding, discharge, and swelling, Skin: Negative for injury, rash, and discoloration, Neuro: Negative for headache, weakness, numbness, tingling, and seizure. 12:53 MS/extremity: Positive for injury or acute deformity, decreased range of motion, pain, swelling, tenderness, of the right ankle. Exam: 12:51 Constitutional: This is a well developed, well nourished patient who is awake, alert, snw and in no acute distress. 12:51 Eyes: Pupils equal round and reactive to light, extra-ocular motions intact. Lids and lashes normal. Conjunctiva and sclera are non-icteric and not injected. Cornea within normal limits. Periorbital areas with no swelling, redness, or edema. ENT: Nares patent. No nasal discharge, no septal abnormalities noted. Tympanic membranes are normal and external auditory canals are clear. Oropharynx with no redness, swelling, or masses, exudates, or evidence of obstruction, uvula midline. Mucous membranes moist. Neck: Trachea midline, no thyromegaly or masses palpated, and no cervical lymphadenopathy. Supple, full range of motion without nuchal rigidity, or vertebral point tenderness. No Meningismus. Chest/axilla: Normal chest wall appearance and motion. Nontender with no deformity. No lesions are appreciated. Cardiovascular: Regular rate and rhythm with a normal S1 and S2. No gallops, murmurs, or rubs. Normal PMI, no JVD. No pulse deficits. Respiratory: Lungs have equal breath sounds bilaterally, clear to auscultation and percussion. No rales, rhonchi or wheezes noted. No increased work of breathing, no retractions or nasal flaring. Abdomen/GI: Soft, non-tender, with normal bowel sounds. No distension or tympany. No guarding or rebound. No evidence of tenderness throughout. Back: No spinal tenderness. No costovertebral tenderness. Full range of motion. 12:51 Neuro: Awake and alert, GCS 15, oriented to person, place, time, and situation. Cranial nerves II-XII grossly intact. Motor strength 5/5 in all extremities. Sensory grossly intact. Cerebellar exam normal. Normal gait. 12:51 Head/face: Noted is contusion, ecchymosis, that is moderate, of the right supraorbital ridge. 12:51 Musculoskeletal/extremity: Extremities: grossly normal except: noted in the right ankle: decreased ROM, deformity, swelling, tenderness, + pulses, Circulation is intact in all extremities. Sensation intact. 12:51 Skin: Appearance: normal except for affected area, injury, abrasion(s), moderate sized abrasion noted, of the right elbow. 12:51 Psych: Behavior/mood is pleasant, anxious, Affect is animated, Oriented to person, place, time. Vital Signs: 12:35 BP 133 / 85; Pulse 65; Resp 20; Temp 98.7; Pulse Ox 94% on R/A; Weight 65.77 kg; Height aj 5 ft. 0 in. (152.40 cm); Pain 4/10; 13:43 BP 133 / 85; Pulse 70; Resp 18; Pulse Ox 96% on R/A; aj 14:30 BP 158 / 82; Pulse 55; Resp 18 S; Temp 98.0(TE); Pulse Ox 99% on 2 lpm NC; aa5 14:38 BP 145 / 100; Pulse 60; Resp 19 S; Pulse Ox 100% on 2 lpm NC; aa5 14:40 BP 158 / 79; Pulse 58; Resp 18 S; Pulse Ox 100% on 2 lpm NC; aa5 14:43 BP 158 / 79; Pulse 59; Resp 16 S; Pulse Ox 100% on 2 lpm NC; aa5 14:46 BP 117 / 55; Pulse 56; Resp 18 S; Pulse Ox 100% on 2 lpm NC; aa5 14:51 BP 131 / 75; Pulse 56; Resp 18 S; Pulse Ox 100% on 2 lpm NC; aa5 14:58 BP 155 / 80; Pulse 58; Resp 16 S; Pulse Ox 100% on 2 lpm NC; aa5 12:35 Body Mass Index 28.32 (65.77 kg, 152.40 cm) aj Tovey Coma Score: 12:35 Eye Response: spontaneous(4). Verbal Response: oriented(5). Motor Response: obeys aj commands(6). Total: 15. Trauma Score (Adult): 12:35 Eye Response: spontaneous(1); Verbal Response: oriented(1); Motor Response: obeys aj commands(2); Systolic BP: > 89 mm Hg(4); Respiratory Rate: 10 to 29 per min(4); Tovey Score: 15; Trauma Score: 12 MDM: 12:43 Patient medically screened. snw 15:31 Data reviewed: vital signs, nurses notes. Data interpreted: Pulse oximetry: on room air snw is 100 %. Counseling: I had a detailed discussion with the patient and/or guardian regarding: the historical points, exam findings, and any diagnostic results supporting the discharge/admit diagnosis, the presence of at least one elevated blood pressure reading (>120/80) during this emergency department visit, lab results, radiology results, the need for further work-up and treatment in the hospital. Physician consultation: London Ramos MD was called at 15:32, was contacted at 15:32, regarding admission, patient's condition, after a discussion of the case, a recommendation for transfer for higher level of care is made, tibial plafond fx - transfer to higher level of care. 15:57 Physician consultation: Dr. Ness kindly accepts pt in transfer to [facility]. snw 05/28 13:17 Order name: CBC with Diff; Complete Time: 14:15 snw 05/28 13:17 Order name: Chem 7; Complete Time: 14:20 snw 05/28 12:41 Order name: CT Head C Spine; Complete Time: 13:59 snw 05/28 13:53 Order name: TS eb 05/28 13:53 Order name: Type and Screen; Complete Time: 14:49 EDMS 05/28 15:34 Order name: ABO/RH no charge EDMS 05/28 12:41 Order name: Ankle Right 3 View XRAY; Complete Time: 14:44 snw 05/28 13:17 Order name: Chest Single View XRAY; Complete Time: 14:44 snw 05/28 14:41 Order name: Ankle Right 2 View XRAY; Complete Time: 15:22 aa5 05/28 15:26 Order name: CT Chest, Abdomen, Pelvis - W/Contrast; Complete Time: 16:28 snw 05/28 13:17 Order name: NPO; Complete Time: 13:21 snw 05/28 13:17 Order name: EKG; Complete Time: 13:18 snw 05/28 13:17 Order name: EKG - Nurse/Tech; Complete Time: 13:31 snw 05/28 14:22 Order name: Conscious Sedation; Complete Time: 14:46 snw 05/28 14:23 Order name: Oxygen Per Protocol; Complete Time: 14:46 snw 05/28 14:23 Order name: Misc. Order: suction; Complete Time: 14:46 snw Administered Medications: 13:31 Drug: morphine 5 mg Route: IM; Site: right deltoid; aj 16:25 Follow up: Response: Pain is decreased aj 14:37 Drug: Propofol 100 mg {Note: administered by Dr. Dominique .} Route: IVP; Site: right aa5 forearm; 16:24 Follow up: Response: No adverse reaction aj 15:39 Drug: morphine 4 mg Route: IVP; Site: right antecubital; aj 16:24 Follow up: Response: Pain is decreased aj 16:24 Drug: Ativan 2 mg Route: PO; aj 17:36 Follow up: Response: No adverse reaction aj 16:24 Drug: morphine 4 mg Route: IVP; Site: right forearm; aj 17:39 Follow up: Response: No adverse reaction aj 17:30 Drug: Tetanus-Diphtheria Toxoid Adult 0.5 ml {Superintendent Service: [facility]. Exp: aj 01/16/2021. Lot #: [id number]. } Route: IM; Site: right deltoid; 17:39 Drug: fentaNYL (PF) 25 mcg Route: IVP; Site: right antecubital; aj 17:39 Follow up: Response: Medication administered at discharge. aj Disposition: 05/28/19 15:57 Transfer ordered to [facility]. Diagnosis are Fall (on) (from) other stairs and steps, Tibial Plafond fracture, distal fibular fracture. - Reason for transfer: Higher level of care. - Accepting physician is Dr. Ness. - Condition is Stable. - Problem is new. - Symptoms are unchanged. Addendum: 05/31/2019 09:08 Co-signature as Attending Physician, Khushboo GARCIA I agree with the assessment k dr and plan of care. Signatures: Dispatcher [employer] Maribell Meehan RN RN aj Rittger, Kevin, MD MD kdr Therrien, Shelly, FNP-C FNP-Nette Florez RN RN aa5 Corrections: (The following items were deleted from the chart) 05/28 17:40 15:57 05/28/2019 15:57 Transfer ordered to [facility]. aj Diagnosis is Fall (on) (from) other stairs and steps; Tibial Plafond fracture, distal fibular fracture. Reason for transfer: Higher level of care. Accepting physician is Dr. Ness. Condition is Stable. Problem is new. Symptoms are unchanged. snw
--- NOTE | 2019-05-28 16:18 | RAD REPORT ---
EXAM DESCRIPTION: CT - Chest Abdomen Pelvis W Cont - 05/28/2019 3:51 pm CLINICAL HISTORY: Fall from ladder, comminuted ankle fracture, chest and abdomen pain, right-sided f acial trauma COMPARISON: CT TECHNIQUE: Following dynamic enhancement using 100 milliliters nonionic IV contrast, axial imaging o f the chest, abdomen and pelvis was performed. Biphasic technique was utilized through the abdomen. Oral contrast was administered. All CT scans are performed using dose optimization technique as appropriate and may include automated exposure control or mA/KV adjustment according to patient size. FINDINGS: No pulmonary contusion or acute lung parenchymal process. Atelectasis is present along the posterior lung calderon. No pleural effusion, pleural thickening or pneumothorax. No significant aorti c or pulmonary arterial tree finding. Mediastinal and hilar regions show no mass or abnormal lymphade nopathy. No chest wall mass or axillary lymphadenopathy. No displaced rib fractures are present. Ther e is no definitive rib fracture seen. There is slight cortical angulation at the costochondral juncti on of the left fifth and sixth ribs. Correlation is needed with in the anterior chest pain symptoms i n this region. The liver, spleen and pancreas show no suspicious findings. Gallbladder and biliary tree are unremark able. Gallstones can be occult on CT imaging. Symmetric renal function is seen with no mass or hydro nephrosis. No adrenal abnormalities. No dilated bowel loops or focal bowel wall thickening. No acute GI findings seen. No acute or destructive bony process. No significant vascular findings. IMPRESSION: CT chest shows atelectasis changes but no pulmonary contusion, pneumothorax or emergent finding. Slight cortical irregularity of the left fifth and sixth ribs at the costochondral junction. Nondispl aced fracture is possible if the patient has localizing symptoms. No acute findings below the diaphragm.
[2019-05-28] MEDS ORDERED: LORAZEPAM 1 MG TABLET ONE (16:19)
[2019-05-28] MEDS ORDERED: TETANUS & DIPHTHERIA TOX,ADULT 0.5 ML VIAL ONE (17:26)
[2019-05-28] MEDS ORDERED: FENTANYL CITR 100 MCG/2 ML ONE (17:34)
--- NOTE | 2019-05-29 06:49 | EKG ---
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
== END 2019-05-28 17:40 | disposition short-term general hospital (02) ==
LOC: ER 12:24
DX: S82.871A Displaced pilon fracture of right tibia, initial encounter for closed fracture (principal); S00.11XA Contusion of right eyelid and periocular area, initial encounter; W11.XXXA Fall on and from ladder, initial encounter; Z23 Encounter for immunization
CPT/HCPCS: 93005; 85025; 80048; 36415; 86900; 86850; 86901; 70450; 72125; 71260; 74177; 71045; 73610; 73600; 90471; 90714; 96372; 99285; Q9967; J2704; J3010; J2270; J7030; 96374; 96375

== ENCOUNTER 2019-06-05 15:15 | Emergency (ER) | payer OTHER ==
--- OUTSIDE RECORDS SUMMARY | 2019-06-05 15:19 | XMS REPORT | Continuity of Care Document ---
:1955 Author Organization [facility] Care Team Providers Name Role Phone [facility] Unavailable Unavailable Problems Problem Status Onset Classification Date Comments Source Date Reported FALL Active [place] [id number] [facility] CLOSED FX OF Active [facility] TIBIAL 9 [facility] PLAFOND, Center CLOSED RT F DISPLACED Active [facility] PILON Medical FRACTURE OF Center UNSP TIBIA, UNSP FRACTURE Active [facility] [place] SHAFT OF [facility] RIGHT FIBULA, Center Medications Medication Details Route Status Patient Ordering Order Source Instructions Provider Date Acetaminophen 325 1 tab, PO, Q4H, Active [facility] MG / Hydrocodone PRN for pain, X 2019 Medical Bitartrate 10 MG 4 day, # 40 tab, Center Oral Tablet 0 Refill(s), [[place] 10/325] other enoxaparin 30 30 mg=0.3 mL, Active [facility] mg/0.3 mL SUB-Q, [id number], 2019 Medical subcutaneous X 21 day, # 13 Center solution mL, 0 Refill(s) sennosides, JAIL 17.2 mg, 2 tab, No Longer [facility] Route: PO, Drug Active 2019 Medical Form: TAB, Center Dosing Weight 65.909, kg, Bedtime, Start date: 05/29/19 21:00:00 CDT, Duration: 30 day, Stop date: 06/27/19 21:00:00 CDT, 0Notes: (Same as: Senokot) Ancef 1 gm, Route: No Longer [facility] IVP, Drug form: Active 2019 Medical PDR/INJ, [id number], Center Dosing Weight 65.909, kg, Start date: 05/29/19 16:00:00 CDT, Duration: 1 day, Stop date: 05/30/19 8:00:00 CDT, ABX Indication: Surgical Prophylaxis, 0Notes: (Same As: Ancef, Kefzol) MEDICATION WASTE Product Size: 1000 mg Product Wasted: ___ mg Morphine 4 mg, 1 mL, No Longer [place] Route: IVP, Drug Active 2018 Medical form: SOLN, Q4H, Center Dosing Weight 65.909, kg, PRN Pain Score 7-10, Start date: 05/29/19 14:00:00 CDT, Duration: 30 day, Stop date: 06/28/19 13:59:00 CDT, 0Notes: (Same as:MORPhine Sulfate) Morphine Sulfate 15 mg, 1 tab, No Longer [place] 15 MG Oral Tablet Route: PO, Drug Active 2018 Medical form: TAB, Q4H, Center Dosing Weight 65.909, kg, PRN Pain Score 4-6, Start date: 05/29/19 14:00:00 CDT, Duration: 30 day, Stop date: 06/28/19 13:59:00 CDT, 0Notes: (Same as:MORPhine Sulfate) Ondansetron 4 mg, 2 mL, No Longer [place] Route: IVP, Drug Active 2018 Medical form: INJ, Q4H, Center Dosing Weight 65.909, kg, PRN Nausea & Vomiting, Start date: 05/29/19 14:00:00 CDT, Duration: 30 day, Stop date: 06/28/19 13:59:00 CDT, 0Notes: (Same as: Zofran) MEDICATION WASTE Product Size: 4 mg Product Wasted: ___ mg Nicotine 14 mg, 1 patch, No Longer [place] Route: TOP, Drug Active 2018 Medical form: ERFILM, Center Q24H, Dosing Weight 65.909, kg, Start date: 05/29/19 12:00:00 CDT, Duration: 30 day, Stop date: 06/27/19 12:00:00 CDT, 0Notes: (Same as: Habitrol) "Remove old patch before application of new patch" WASTE: F/P - P Waste Black; E - P Waste Black gabapentin 300 MG 300 mg, Route: Inactive [place] Oral Capsule PO, Drug form: 2019 Medical CAP, ONCE, Center Dosing Weight 65.909, kg, Start date: 05/29/19 9:37:00 CDT, Stop date: 05/29/19 9:37:00 CDT 24 HR Metoprolol 100 mg, 2 tab, No Longer [place] Tartrate 100 MG Route: PO, Drug Active 2019 Medical Extended Release form: ERTAB, Center Tablet [Toprol] Daily, Start date: 05/29/19 9:00:00 CDT, Duration: 30 day, Stop date: 06/27/19 9:00:00 CDT, 0Notes: (Same as: Toprol XL) May split tab, but do not crush. Nicotine 21 mg, 1 patch, Inactive [place] Route: TOP, Drug 2018 Medical form: ERFILM, Center Daily, Dosing Weight 65.909, kg, Start date: 05/29/19 9:00:00 CDT, Duration: 30 day, Stop date: 06/27/19 9:00:00 CDT, 0Notes: (Same as: Habitrol) "Remove old patch before application of new patch" WASTE: F/P - P Waste Black; E - P Waste Black Ancef 1 gm, Route: Inactive [place] IVP, Drug form: 2019 Medical PDR/INJ, [id number], Center Dosing Weight 65.909, kg, Start date: 05/29/19 9:00:00 CDT, Duration: 1 day, Stop date: 05/30/19 1:00:00 CDT, ABX Indication: Surgical Prophylaxis, 0Notes: (Same As: Danita Townsend) MEDICATION WASTE Product Size: 1000 mg Product Wasted: ___ mg Midazolam 1 mg, 1 mL, Inactive [place] Route: IVP, Drug 2018 Medical form: SOLN, Center Q5Min, Dosing Weight 65.909, kg, PRN Anxiety, Start date: 05/29/19 8:34:00 CDT, Duration: 2 doses or times, Stop date: Limited # of times, 0Notes: Same as: Versed Meperidine 12.5 mg, 0.5 mL, Inactive [place] Route: IVP, Drug 2018 Medical form: INJ, Center Q30Min, Dosing Weight 65.909, kg, PRN Other -See Comment, For shivering, Start date: 05/29/19 8:34:00 CDT, Duration: 2 doses or times, Stop date: Limited # of times, 0Notes: (Same as: Demerol) "Use Precaution in Elderly, Seizure disorders, and Renal impairment" Naloxone 0.4 mg, 1 mL, Inactive [facility] Route: IVP, Drug 2018 Medical form: INJ, Center Q2MIN, Dosing Weight 65.909, kg, PRN Narcotic Reversal, Start date: 05/29/19 8:34:00 CDT, Duration: 8 doses or times, Stop date: Limited # of times, 0Notes: (Same as: Narcan) Ephedrine 5 mg, 0.1 mL, Inactive [facility] Route: IVP, Drug 2018 Medical form: INJ, Center Q5Min, Dosing Weight 65.909, kg, PRN Low Blood Pressure, Start date: 05/29/19 8:34:00 CDT, Duration: 1 day, Stop date: 05/30/19 8:33:00 CDT, 0Notes: (Same as: ePHEDrine Sulfate) Albuterol 0.83 2.49 mg, 3 mL, Inactive [facility] MG/ML Inhalant Route: NEB, Drug 2018 Medical Solution form: SOLN, Center Q20Min, Dosing Weight 65.909, kg, PRN Wheezing, Priority: STAT, Start date: 05/29/19 8:34:00 CDT, Duration: 1 day, Stop date: 05/30/19 8:33:00 CDT, 0Notes: SEE RT DOCUMENTATION (Same as: Proventil) Diphenhydramine 12.5 mg, 0.25 Inactive [place] mL, Route: IVP, 2018 Medical Drug form: INJ, Center Q6H, Dosing Weight 65.909, kg, PRN Itching, Start date: 05/29/19 8:34:00 CDT, Duration: 1 day, Stop date: 05/30/19 8:33:00 CDT, 0Notes: (Same as: Benadryl) Hydralazine 10 mg, 0.5 mL, Inactive [facility] Route: IVP, Drug 2018 Medical form: INJ, Center Q20Min, Dosing Weight 65.909, kg, PRN Elevated BP, Start date: 05/29/19 8:34:00 CDT, Duration: 2 doses or times, Stop date: Limited # of times, 0Notes: (Same as: Apresoline) Push over 5 minutes Calcium Chloride 1,000 mL, Rate: Inactive [facility] 0.0014 MEQ/ML / 125 ml/hr, 2019 Medical Potassium Infuse over: 8 Center Chloride 0.004 hr, Route: IV, MEQ/ML / Sodium Dosing Weight Chloride 0.103 65.909 kg, Total MEQ/ML / Sodium Volume: 1,000, Lactate 0.028 Start date: MEQ/ML Injectable 05/29/19 8:34:00 Solution CDT, Duration: 1 day, Stop date: 05/30/19 8:33:00 CDT, 1.7, m2, 0 Oxycodone 5 mg, 1 tab, Inactive [place] Hydrochloride 5 Route: PO, Drug 2019 Medical MG Oral Tablet form: TAB, Q4H, Center Dosing Weight 65.909, kg, PRN Pain Score 4-6, Start date: 05/29/19 8:34:00 CDT, Duration: 1 day, Stop date: 05/30/19 8:33:00 CDT, 0Notes: (Same as: Roxicodone) Morphine 2 mg, 0.5 mL, Inactive [place] Route: IVP, Drug 2018 Medical form: SOLN, Center Q5Min, Dosing Weight 65.909, kg, PRN Pain Score 4-6, Start date: 05/29/19 8:34:00 CDT, Duration: 5 doses or times, Stop date: Limited # of times, 0Notes: (Same as:MORPhine Sulfate) Acetaminophen 1,000 mg, Route: Inactive [place] PO, Drug form: 2019 Medical TAB, ONCE, Center Dosing Weight 65.909, kg, PRN Pain Score 1-3, Start date: 05/29/19 8:34:00 CDT Labetalol 10 mg, 2 mL, Inactive [place] Route: IVP, Drug 2019 Medical form: INJ, Center Q5Min, Dosing Weight 65.909, kg, PRN Elevated BP, Start date: 05/29/19 8:34:00 CDT, Duration: 5 doses or times, Stop date: Limited # of times, 0 Ondansetron 4 mg, 2 mL, Inactive [facility] Route: IVP, Drug 2018 Medical form: INJ, ONCE, Center Dosing Weight 65.909, kg, PRN Nausea & Vomiting, Start date: 05/29/19 8:34:00 CDT, 0Notes: (Same as: Zofran) MEDICATION WASTE Product Size: 4 mg Product Wasted: ___ mg Promethazine 6.25 mg, 0.25 Inactive [facility] mL, Route: IVPB, 2018 Medical Drug form: INJ, Center ONCE, Dosing Weight 65.909, kg, PRN Nausea & Vomiting, Start date: 05/29/19 8:34:00 CDT, 0Notes: Do not give IV push. (Same as: Phenergan) Flumazenil 0.2 mg, 2 mL, Inactive [facility] Route: IVP, Drug 2018 Medical form: INJ, PRN, Center Dosing Weight 65.909, kg, PRN Benzodiazepine Reversal, Initial dose, Start date: 05/29/19 8:34:00 CDT, Duration: 1 day, Stop date: 05/30/19 8:33:00 CDT, 0Notes: (Same as: Romazicon) Fentanyl 50 microgram, 1 Inactive [facility] mL, Route: IVP, 2018 Medical Drug form: INJ, Center Q5Min, Dosing Weight 65.909, kg, PRN Pain Score 7-10, Priority: Routine, Start date: 05/29/19 8:34:00 CDT, Duration: 2 doses or times, Stop date: Limited # of times, 0Notes: (Same as: Sublimaze) Preservative free. Hydromorphone 0.5 mg, Route: Inactive [facility] IVP, Q5Min, 2019 Medical Dosing Weight Center 65.909, kg, PRN Pain Score 7-10, Start date: 05/29/19 8:34:00 CDT, Duration: 4 doses or times, Stop date: Limited # of times ePHEDrine (ANES) Route: IV, Drug Inactive [facility] form: INJ, ONCE, 2018 Medical Stop date: [place] 05/29/19 8:26:00 CDT famotidine (ANES) Route: IV, Drug Inactive [facility] form: INJ, ONCE, 2018 Medical Stop date: [place] 05/29/19 8:26:00 CDT dexamethasone Route: IV, Drug Inactive [facility] (ANES) form: INJ, ONCE, 2018 Medical Stop date: [place] 05/29/19 8:26:00 CDT ondansetron Route: IV, Drug Inactive [facility] (ANES) form: INJ, ONCE, 2018 Medical Stop date: [place] 05/29/19 8:26:00 CDT ceFAZolin (ANES) Route: IV, Drug Inactive [facility] form: INJ, ONCE, 2018 Medical Stop date: [place] 05/29/19 8:15:00 CDT lidocaine (ANES) Route: IV, Drug Inactive [facility] form: INJ, ONCE, 2018 Medical Stop date: [place] 05/29/19 8:15:00 CDT propofol (ANES) Route: IV, Drug Inactive [facility] form: INJ, ONCE, 2018 Medical Stop date: [place] 05/29/19 8:15:00 CDT midazolam (ANES) Route: IV, Drug Inactive [facility] form: SOLN, 2019 Medical ONCE, Stop date: [place] 05/29/19 8:10:00 CDT fentaNYL (ANES) Route: IV, Drug Inactive [facility] form: INJ, ONCE, 2018 Medical Stop date: [place] 05/29/19 8:10:00 CDT Lactated Ringers Route: IV, Total Inactive [facility] Injection IV Volume: 1,000, 2019 Medical (ANES) 1000 mL Start date: [place] 05/29/19 7:34:00 CDT, Stop date: 05/29/19 8:34:00 CDT Morphine 2 mg, 0.5 mL, Inactive [facility] Route: IVP, Drug 2018 [facility], Dosing Weight 65.909, kg, Start date: 05/29/19 5:53:00 CDT, Stop date: 05/29/19 5:53:00 CDT, 0Notes: (Same as:MORPhine Sulfate) Enoxaparin 30 mg, 0.3 mL, No Longer [facility] Route: SUB-Q, Active 2018 Medical Drug form: INJ, Center [id number], Dosing Weight 65.909, kg, Start date: 05/29/19 2:00:00 CDT, Duration: 30 day, Stop date: 06/27/19 14:00:00 CDT, 0Notes: (Same as: Lovenox) Methocarbamol 750 mg, 1 tab, No Longer [facility] Route: PO, Drug Active 2018 Medical form: TAB, Center Q6Hnow, Dosing Weight 65.909, kg, Start date: 05/29/19 2:00:00 CDT, Duration: 30 day, Stop date: 06/27/19 20:00:00 CDT, 0Notes: (Same as:Robaxin) celecoxib 200 mg, 1 cap, No Longer [facility] Route: PO, Drug Active 2018 Medical form: CAP, Center [id number], Dosing Weight 65.909, kg, Not recommended for eGFR Notes: NSAID. Please check indication. Not for seizure. (Same As: CeleBREX) Alprazolam 0.5 MG 0.5 mg, 1 tab, No Longer [facility] Oral Tablet Route: PO, Drug Active 2018 Medical form: TAB, BID, Center Dosing Weight 65.909, kg, PRN Anxiety, Start date: 05/29/19 1:51:00 CDT, Duration: 30 day, Stop date: 06/28/19 1:50:00 CDT, 0Notes: With food or milk (Same as: Xanax) metoprolol 100 mg=1 cap, Active [facility] succinate 100 mg PO, Daily, 0 2018 Medical oral capsule, Refill(s) [place] extended release Ondansetron 4 mg, Route: Inactive [facility] IVP, Drug form: 2019 Medical INJ, ONCE, Center Dosing Weight 65.909, kg, Priority: STAT, Start date: 05/29/19 1:51:00 CDT, Stop date: 05/29/19 1:51:00 CDT Morphine 4 mg, Route: Inactive [facility] IVP, ONCE, 2019 Medical Dosing Weight Center 65.909, kg, Priority: STAT, Start date: 05/29/19 1:51:00 CDT, Stop date: 05/29/19 1:51:00 CDT Melatonin 3 mg, 1 tab, No Longer [facility] Route: PO, Drug Active 2018 Medical form: TAB, Center Bedtime, Dosing Weight 65.909, kg, PRN Insomnia, Start date: 05/29/19 1:50:00 CDT, Duration: 30 day, Stop date: 06/28/19 1:49:00 CDT, 0Notes: (Same as: Melatonin) Ondansetron 4 mg, 2 mL, Inactive [place] Route: IVP, Drug 2018 Medical form: INJ, Q8H, Center Dosing Weight 65.909, kg, PRN Nausea & Vomiting, Start date: 05/29/19 1:50:00 CDT, Duration: 30 day, Stop date: 06/28/19 1:49:00 CDT, 0Notes: (Same as: Zofran) MEDICATION WASTE Product Size: 4 mg Product Wasted: ___ mg Acetaminophen 650 mg, 2 tab, No Longer [facility] Route: PO, Drug Active 2018 Medical form: TAB, Q4H, Center Dosing Weight 65.909, kg, PRN Pain 1-3/Temp > 100.4 F, Start date: 05/29/19 1:50:00 CDT, Duration: 30 day, Stop date: 06/28/19 1:49:00 CDT, 0Notes: Do not exceed 4 gm/day. (Same as: Tylenol) Dextrose 50% 12.5 gm, 25 mL, No Longer [facility] Syringe Route: IVP, Drug Active 2018 Medical Form: INJ, Center Dosing Weight 65.909, kg, PRN, PRN Blood Glucose Results, Start date: 05/29/19 1:50:00 CDT, Duration: 30 day, Stop date: 06/28/19 1:49:00 CDT, 0 Glucagon 1 mg, Route: IM, No Longer [facility] Drug form: Active 2019 Medical PDR/INJ, PRN, Center Dosing Weight 65.909, kg, PRN Blood Glucose Results, Start date: 05/29/19 1:50:00 CDT, Duration: 30 day, Stop date: 06/28/19 1:49:00 CDT, 0 Tramadol 100 mg, 2 tab, Inactive [facility] Route: PO, Drug 2019 Medical form: TAB, Center Q6Hnow, Dosing Weight 65.909, kg, PRN Pain Score 7-10, Start date: 05/29/19 1:49:00 CDT, Duration: 5 day, Stop date: 06/03/19 1:48:00 CDT, 0Notes: Not to exceed 400mg/day. (Same As: Ultram) Propofol 120 mg, Route: Inactive [facility] IV, ONCE, Dosing 2019 Medical Weight 65.909, Center kg, Start date: 05/29/19 1:30:00 CDT, Stop date: 05/29/19 1:30:00 CDT Ketamine 40 mg, Route: Inactive [facility] IV, ONCE, Dosing 2019 Medical Weight 65.909, Center kg, Start date: 05/29/19 1:30:00 CDT, Stop date: 05/29/19 1:30:00 CDT Ketamine 20 mg, 2 mL, Inactive [facility] Route: IV, Drug 2019 Medical form: SOLN, Center ONCE, Dosing Weight 65.909, kg, Start date: 05/29/19 0:11:00 CDT, Stop date: 05/29/19 0:11:00 CDT, 0Notes: (Same as: keTALAR) Morphine 4 mg, Route: Inactive [facility] IVP, ONCE, 2019 Medical Dosing Weight Center 65.909, kg, Priority: STAT, Start date: 05/28/19 21:31:00 CDT, Stop date: 05/28/19 21:31:00 CDT Morphine 4 mg, Route: Inactive [facility] IVP, ONCE, 2019 Medical Dosing Weight Center 65.909, kg, Priority: STAT, Start date: 05/28/19 19:20:00 CDT, Stop date: 05/28/19 19:20:00 CDT Allergies, Adverse Reactions, Alerts Substance Category Reaction Severity Reaction Status Date Comments Source type Reported No Known Assertion Drug [facility] Medication allergy Medical Allergies Center Immunizations No Data Provided for This Section Results Order Name Results Value Reference Date Interpretation Comments Source Range ELECTROLYTES AGAP 12.7 10.0 - 05/30 [facility] 20.0 [facility] ELECTROLYTES eGFR 96 05/30 Result Comment: The Medical eGFR is Center calculated using the CKD-EPI formula. In most young, healthy individuals the eGFR will be >90 mL/min/1.73m2 . The eGFR declines with age. An eGFR of 60-89 may be normal in some populations, particularly the elderly, for whom the CKD-EPI formula has not been extensively validated. Use of the eGFR is not recommended in the following populations:< br/>
Arlene viduals with unstable creatinine concentration s, including patients and those with serious co-morbid conditions.<b r/>
Patie nts with extremes in muscle mass or diet.

The data above are obtained from the National Kidney Disease Education Program (NKDEP) which additionally recommends that when the eGFR is used in patients with extremes of body mass index for purposes of drug dosing, the eGFR should be multiplied by the estimated BMI. ELECTROLYTES CO2 24 24 - 32 05/[address] ELECTROLYTES Chloride Lvl 107 95 - 109 05/[address] ELECTROLYTES Potassium 3.7 3.5 - 5.1 05/30 [facility] [address] [place] [address] ELECTROLYTES Sodium Lvl 140 135 - 145 05/[address] ELECTROLYTES Calcium Lvl 8.5 8.5 - 10.5 05/[address] ELECTROLYTES Glucose Lvl 94 70 - 99 05/[address] ELECTROLYTES Creatinine 0.63 0.50 - 05/30 [facility] 1.40 [facility] ELECTROLYTES BUN 12 7 - 22 05/[address] HEMATOLOGY Basophils 0.3 0.0 - 1.0 05/[address] HEMATOLOGY Eosinophils 0.4 0.0 - 4.0 05/[address] HEMATOLOGY Neutrophils 6.2 1.5 - 8.1 05/30 [facility] # /2018 [facility] HEMATOLOGY Monocytes # 0.6 0.0 - 0.8 05/[address] HEMATOLOGY Lymphocytes 1.7 1.0 - 5.5 05/30 [facility] # /2018 [facility] HEMATOLOGY Segs 72.0 45.0 - 08/ [place] 75.0 /2019 [facility] HEMATOLOGY Lymphocytes 19.7 20.0 - 08 [place] 40.0 [facility] HEMATOLOGY Monocytes 7.6 2.0 - 12.0 05/30 [facility] HEMATOLOGY Platelet 189 133 - 450 05/30 [facility] HEMATOLOGY MPV 9.8 7.4 - 10.4 05/30 [facility] HEMATOLOGY MCH 32.7 27.0 - 08/ [place] 31.0 [facility] HEMATOLOGY MCV 95.9 80.0 - 08 [place] 98.0 [facility] HEMATOLOGY RDW 14.1 11.5 - 08 [facility] 14.5 [facility] HEMATOLOGY MCHC 34.1 32.0 - / [place] 36.0 /2019 [facility] HEMATOLOGY WBC 8.6 3.7 - 10.4 05/30 [facility] HEMATOLOGY Hgb 10.7 12.0 - 08 [place] 16.0 2019 [facility] HEMATOLOGY RBC 3.28 4.20 - 08 [place] 5.40 /2018 [facility] HEMATOLOGY Hct 31.4 36.0 - 08 [place] 48.0 2019 [facility] CHEM PANEL eGFR 97 05/29 [facility] Comment: The Medical eGFR is Center calculated using the CKD-EPI formula. In most young, healthy individuals the eGFR will be >90 mL/min/1.73m2 . The eGFR declines with age. An eGFR of 60-89 may be normal in some populations, particularly the elderly, for whom the CKD-EPI formula has not been extensively validated. Use of the eGFR is not recommended in the following populations:< br/>
Arlene viduals with unstable creatinine concentration s, including patients and those with serious co-morbid conditions.<b r/>
Patie nts with extremes in muscle mass or diet.

The data above are obtained from the National Kidney Disease Education Program (NKDEP) which additionally recommends that when the eGFR is used in patients with extremes of body mass index for purposes of drug dosing, the eGFR should be multiplied by the estimated BMI. CHEM PANEL Calcium Lvl 7.9 8.5 - 10.5 08/ [facility] CHEM PANEL CO2 23 24 - 32 08/ [facility] CHEM PANEL Chloride Lvl 107 95 - 109 05/29 [facility]2018 [facility] CHEM PANEL BUN 15 7 - 22 08/ [facility]2018 [facility] CHEM PANEL Creatinine 0.60 0.50 - 08 [place] Lvl 1.40 /2019 [facility] CHEM PANEL Sodium Lvl 141 135 - 145 / /2018 [facility] CHEM PANEL Potassium 3.5 3.5 - 5.1 / [facility] Lvl /2018 [facility] CHEM PANEL Glucose Lvl 94 70 - 99 08/ /2018 [facility] CHEM PANEL AGAP 14.5 10.0 - 08 [facility] 20.0 /2019 [facility] HEMATOLOGY MCHC 34.0 32.0 - 08 [facility] 36.0 /2019 [facility] HEMATOLOGY RDW 14.6 11.5 - 05/29 [facility] 14.5 /2018 [facility] HEMATOLOGY Platelet 201 133 - 450 05/29 [facility] HEMATOLOGY MPV 9.6 7.4 - 10.4 05/29 [facility] HEMATOLOGY WBC 10.0 3.7 - 10.4 / [facility] HEMATOLOGY RBC 3.47 4.20 - 08 [facility] 5.40 /2019 [facility] HEMATOLOGY Hgb 11.4 12.0 - 08 [facility] 16.0 /2019 [facility] HEMATOLOGY Hct 33.4 36.0 - 08/ [place] 48.0 /2019 [facility] HEMATOLOGY MCV 96.3 80.0 - 05/29 [place] 98.0 /2019 [facility] HEMATOLOGY MCH 32.7 27.0 - 08 [place] 31.0 /2019 [facility] HEMATOLOGY INR 1.04 0.85 - 08 [place] 1.17 /2019 [facility] HEMATOLOGY PTT 33.9 22.9 - 08 [place] 35.8 /2019 [facility] HEMATOLOGY PT 13.4 12.0 - 08 [place] 14.7 /2019 [facility] HEMATOLOGY Neutrophils 8.0 1.5 - 8.1 05/29 [facility] # /2019 [facility] HEMATOLOGY Lymphocytes 1.2 1.0 - 5.5 05/29 [facility] # /2019 [facility] HEMATOLOGY Monocytes # 0.8 0.0 - 0.8 05/29 [facility] HEMATOLOGY Segs 79.5 45.0 - 05/29 [place] 75.0 [facility] HEMATOLOGY Monocytes 7.5 2.0 - 12.0 05/29 [facility] HEMATOLOGY Basophils 0.3 0.0 - 1.0 / [facility] HEMATOLOGY Lymphocytes 12.3 20.0 - 05/29 [place] 40.0 [facility] HEMATOLOGY Eosinophils 0.4 0.0 - 4.0 05/29 [facility] BLOOD BANK Antibody Negative 05/29 [facility] RESULTS Scrn (05/28/19 9:33 PM) [facility] BLOOD BANK ABO/Rh O POS 05/29 [facility] CHEM PANEL Calcium Lvl 8.9 8.5 - 10.5 05/29 [facility] CHEM PANEL CO2 25 24 - 32 05/29 [facility] CHEM PANEL AGAP 14.2 10.0 - 05/29 [place] 20.0 [facility] CHEM PANEL eGFR 96 05/29 Result Comment: The Medical eGFR is Center calculated using the CKD-EPI formula. In most young, healthy individuals the eGFR will be >90 mL/min/1.73m2 . The eGFR declines with age. An eGFR of 60-89 may be normal in some populations, particularly the elderly, for whom the CKD-EPI formula has not been extensively validated. Use of the eGFR is not recommended in the following populations:< br/>
Arlene viduals with unstable creatinine concentration s, including patients and those with serious co-morbid conditions.<b r/>
Patie nts with extremes in muscle mass or diet.

The data above are obtained from the National Kidney Disease Education Program (NKDEP) which additionally recommends that when the eGFR is used in patients with extremes of body mass index for purposes of drug dosing, the eGFR should be multiplied by the estimated BMI. CHEM PANEL Glucose Lvl 102 70 - 99 05/29 [facility] CHEM PANEL Sodium Lvl 140 135 - 145 05/29 [facility] CHEM PANEL Potassium 4.2 3.5 - 5.1 05/29 [facility] /2018 [facility] CHEM PANEL Creatinine 0.62 0.50 - 05/29 [facility] 1.40 /2018 [facility] CHEM PANEL Chloride Lvl 105 95 - 109 05/29 [facility]2018 [facility] CHEM PANEL BUN 14 7 - 22 05/29 [facility]2018 [facility] HEMATOLOGY Monocytes # 0.8 0.0 - 0.8 05/29 [facility]2018 [facility] HEMATOLOGY Eosinophils 0.1 0.0 - 0.5 / [facility] /2018 [facility] HEMATOLOGY Basophils # 0.1 0.0 - 0.2 05/29 [facility]2018 [facility] HEMATOLOGY Lymphocytes 1.1 1.0 - 5.5 05/29 [facility] /2018 [facility] HEMATOLOGY Monocytes 6.3 2.0 - 12.0 05/29 [facility]2018 [facility] HEMATOLOGY Lymphocytes 8.7 20.0 - 08 [place] 40.0 /2019 [facility] HEMATOLOGY Neutrophils 10.9 1.5 - 8.1 05/29 [facility] HEMATOLOGY Basophils 0.6 0.0 - 1.0 / [facility] HEMATOLOGY Eosinophils 0.6 0.0 - 4.0 05/29 [facility] HEMATOLOGY Segs 83.8 45.0 - 08 [facility] 75.0 /2019 [facility] HEMATOLOGY PTT 30.3 22.9 - 08 [place] 35.8 /2019 [facility] HEMATOLOGY PT 12.6 12.0 - 08 [place] 14.7 /2019 [facility] HEMATOLOGY INR 0.96 0.85 - 05/29 [place] 1.17 /2019 [facility] HEMATOLOGY MCHC 33.5 32.0 - 08 [place] 36.0 /2019 [facility] HEMATOLOGY RBC 4.10 4.20 - 08 [place] 5.40 /2019 [facility] HEMATOLOGY Hgb 13.3 12.0 - 08 [place] 16.0 /2019 [facility] HEMATOLOGY Hct 39.7 36.0 - 08 [place] 48.0 /2019 [facility] HEMATOLOGY MCV 96.8 80.0 - 05/29 [facility] 98.0 /2019 [facility] HEMATOLOGY MCH 32.4 27.0 - 08 [place] 31.0 /2019 [facility] HEMATOLOGY WBC 13.0 3.7 - 10.4 08 [facility]2018 [facility] HEMATOLOGY MPV 9.5 7.4 - 10.4 05/29 [facility]2018 [facility] HEMATOLOGY Platelet 235 133 - 450 05/29 [facility] HEMATOLOGY RDW 14.6 11.5 - 05/29 [facility] 14. [facility] Pathology Reports No Data Provided for This Section Diagnostic Reports Report Value Date Source Ankle wo contrast w/3D EXAM: CT RIGHT ANKLE WITHOUT CONTRAST 05/29/2019 [facility] CT DATE: 05/29/2019 at 19:05 hours Center INDICATION: - post op, preop planning COMPARISON: Xray of 05/29/2019. TECHNIQUE: Volumetric CT of the ankle is acquired without contrast. Axial, coronal and sagittal images are provided. 3D reconstructions are created at the acquisition workstation. IV contrast: None. DLP: 632 mGy-cm FINDINGS: Distal tibia: The comminuted distal tibial pilon fracture is in improved alignment following external fixation. Intra-articular fractures at the articular surface are primarily coronal oblique, with sag ittally oriented fracture at the anteromedial aspect of the tibial plafond. The fracture extends up to 4.1cm cranial to the articular surface anteromedially. Up to 0.2cm articular surface offset is pres ent, with tiny intra-articular fragments up to 0.2cm. Distal fibula: Comminuted distal tibial shaft fracture above the syndesmosis remains mildly displaced. Talus: Tiny fractures are present at the lateral aspect of the talus. Calcaneus: External fixation pin without complication. No fracture. Navicular: Intact. Cuboid: Intact. Cuneiforms: Intact. Visualized metatarsals: Intact. Soft tissues: Circumferential soft tissue swelling is present with small blisters medially. No radiopaque foreign body or subcutaneous emphysema. No pneumarthrosis. IMPRESSION: 1. Comminuted distal tibial pilon fracture with predominantly coronally oriented fracture lines at the articular surface, up to 0.2cm offset and small, 0.2cm intra-articular fragments. 2. Comminuted distal fibular shaft fracture and tiny fractures of the lateral process of the talus. Ankle 3 views DX EXAM: RIGHT Ankle 3 views DX 05/29/2019 [facility] DATE: 05/29/2019 1:30 CDT [place] INDICATION: - s/p splint ADDITIONAL INFORMATION: Status post fall from a ladder. COMPARISON: Right ankle 05/28/2019 at 1303 hours and 2106 hours. TECHNIQUE: AP, oblique and lateral views of the right ankle. FINDINGS: The underlying bone and soft tissue detail is obscured due to the overlying splint/cast. There has been slight improvement in alignment of the tibial shaft with respect to the distal tibia at the comminuted fracture of the distal metaphysis with relative straightening of the shaft. There is no appreciable change in alignment of the intra-articular fractures extending to the tibial plafond. There is mild widening of the lateral joint spaces with a slight talar tilt. There is a mildly displ aced posterior malleolar fracture with unchanged alignment. Again seen is a comminuted fracture of the distal 3rd of the shaft of the right fibula with improved alignment demonstrating relative straightening. There is moderate diffuse soft tissue swelling surrounding the right ankle. IMPRESSION: 1. Interval improvement in alignment of the comminuted distal tibial fractures with straightening of the shaft. 2. Improved alignment of the distal 3rd of the shaft of the right fibula with straightening of the shaft as well. 3. No appreciable change in alignment of the ankle mortise with slight widening laterally. Knee 3 views DX EXAM: XR RIGHT KNEE 3 VIEWS 05/28/2019 [facility] DATE: 05/28/2019 22:09 CDT Center INDICATION: - Pain after injury COMPARISON: None. TECHNIQUE: AP, lateral and oblique views of the right knee DISCUSSION: No acute fracture or malalignment is identified. There is no excessive joint fluid. No soft tissue abnormality is identified. IMPRESSION: No acute abnormality. Calcaneus series DX EXAM: XR RIGHT TIBIA-FIBULA 2 VIEWS 05/28/2019 [facility] EXAM: XR RIGHT ANKLE 3 VIEWS Center EXAM: XR RIGHT FOOT 3 VIEWS EXAM: XR RIGHT CALCANEUS 2 VIEWS DATE: 05/28/2019 20:03 CDT INDICATION: - Pain after injury COMPARISON: Same day ankle series. [place] SECTION: ER TECHNIQUE: 2 views of the tibia-fibula, 3 views of the ankle, 3 views of the foot, and 2 views of the calcaneus FINDINGS: Interval splint placement Tibia-fibula: No acute fracture or malalignment is identified proximally. Unchanged alignment of the comminuted, intra-articular and transversely oriented fracture of the distal tibial metadiaphysis. The fracture lines involve the tibiofibular syndesmosis and the posterior ma lleolus, which is minimally displaced. There is lateral subluxation by one cortex width and apex lateral angulation of the distal fracture fragment/ankle. There is a transversely oriented fracture of the distal tibial diaphysis with one cortex width posterior displacement and slight apex medial angulation. There is mild, asymmetric widening of the lateral clear space and lateral subluxation of the talus. Foot: A mildly displaced impacted fracture of the 1st proximal phalanx head is present. The articular surface is incongruent, with a slight central stepoff. No additional fracture of the foot identified. Specifically, no calcaneal fracture. IMPRESSION: 1. Unchanged alignment of the comminuted, intra-articular tibial plafond. 2. Persistent widening of the lateral clear space and mild lateral subluxation of the talus. 3. Unchanged displaced and angulated distal fibular diaphyseal fracture. 4. Impacted fracture of the 1st proximal phalanx head, with incongruent joint surface. Tibia fibula series DX EXAM: XR RIGHT TIBIA-FIBULA 2 VIEWS 05/28/2019 [facility] EXAM: XR RIGHT ANKLE 3 VIEWS Center EXAM: XR RIGHT FOOT 3 VIEWS EXAM: XR RIGHT CALCANEUS 2 VIEWS DATE: 05/28/2019 20:03 CDT INDICATION: - Pain after injury COMPARISON: Same day ankle series. [place] SECTION: ER TECHNIQUE: 2 views of the tibia-fibula, 3 views of the ankle, 3 views of the foot, and 2 views of the calcaneus FINDINGS: Interval splint placement Tibia-fibula: No acute fracture or malalignment is identified proximally. Unchanged alignment of the comminuted, intra-articular and transversely oriented fracture of the distal tibial metadiaphysis. The fracture lines involve the tibiofibular syndesmosis and the posterior ma lleolus, which is minimally displaced. There is lateral subluxation by one cortex width and apex lateral angulation of the distal fracture fragment/ankle. There is a transversely oriented fracture of the distal tibial diaphysis with one cortex width posterior displacement and slight apex medial angulation. There is mild, asymmetric widening of the lateral clear space and lateral subluxation of the talus. Foot: A mildly displaced impacted fracture of the 1st proximal phalanx head is present. The articular surface is incongruent, with a slight central stepoff. No additional fracture of the foot identified. Specifically, no calcaneal fracture. IMPRESSION: 1. Unchanged alignment of the comminuted, intra-articular tibial plafond. 2. Persistent widening of the lateral clear space and mild lateral subluxation of the talus. 3. Unchanged displaced and angulated distal fibular diaphyseal fracture. 4. Impacted fracture of the 1st proximal phalanx head, with incongruent joint surface. Foot series DX EXAM: XR RIGHT TIBIA-FIBULA 2 VIEWS 05/28/2019 [facility] EXAM: XR RIGHT ANKLE 3 VIEWS Center EXAM: XR RIGHT FOOT 3 VIEWS EXAM: XR RIGHT CALCANEUS 2 VIEWS DATE: 05/28/2019 20:03 CDT INDICATION: - Pain after injury COMPARISON: Same day ankle series. UT SECTION: ER TECHNIQUE: 2 views of the tibia-fibula, 3 views of the ankle, 3 views of the foot, and 2 views of the calcaneus FINDINGS: Interval splint placement Tibia-fibula: No acute fracture or malalignment is identified proximally. Unchanged alignment of the comminuted, intra-articular and transversely oriented fracture of the distal tibial metadiaphysis. The fracture lines involve the tibiofibular syndesmosis and the posterior ma lleolus, which is minimally displaced. There is lateral subluxation by one cortex width and apex lateral angulation of the distal fracture fragment/ankle. There is a transversely oriented fracture of the distal tibial diaphysis with one cortex width posterior displacement and slight apex medial angulation. There is mild, asymmetric widening of the lateral clear space and lateral subluxation of the talus. Foot: A mildly displaced impacted fracture of the 1st proximal phalanx head is present. The articular surface is incongruent, with a slight central stepoff. No additional fracture of the foot identified. Specifically, no calcaneal fracture. IMPRESSION: 1. Unchanged alignment of the comminuted, intra-articular tibial plafond. 2. Persistent widening of the lateral clear space and mild lateral subluxation of the talus. 3. Unchanged displaced and angulated distal fibular diaphyseal fracture. 4. Impacted fracture of the 1st proximal phalanx head, with incongruent joint surface. Ankle 3 views DX EXAM: XR RIGHT TIBIA-FIBULA 2 VIEWS 05/28/2019 [facility] EXAM: XR RIGHT ANKLE 3 VIEWS Center EXAM: XR RIGHT FOOT 3 VIEWS EXAM: XR RIGHT CALCANEUS 2 VIEWS DATE: 05/28/2019 20:03 CDT INDICATION: - Pain after injury COMPARISON: Same day ankle series. [place] SECTION: ER TECHNIQUE: 2 views of the tibia-fibula, 3 views of the ankle, 3 views of the foot, and 2 views of the calcaneus FINDINGS: Interval splint placement Tibia-fibula: No acute fracture or malalignment is identified proximally. Unchanged alignment of the comminuted, intra-articular and transversely oriented fracture of the distal tibial metadiaphysis. The fracture lines involve the tibiofibular syndesmosis and the posterior ma lleolus, which is minimally displaced. There is lateral subluxation by one cortex width and apex lateral angulation of the distal fracture fragment/ankle. There is a transversely oriented fracture of the distal tibial diaphysis with one cortex width posterior displacement and slight apex medial angulation. There is mild, asymmetric widening of the lateral clear space and lateral subluxation of the talus. Foot: A mildly displaced impacted fracture of the 1st proximal phalanx head is present. The articular surface is incongruent, with a slight central stepoff. No additional fracture of the foot identified. Specifically, no calcaneal fracture. IMPRESSION: 1. Unchanged alignment of the comminuted, intra-articular tibial plafond. 2. Persistent widening of the lateral clear space and mild lateral subluxation of the talus. 3. Unchanged displaced and angulated distal fibular diaphyseal fracture. 4. Impacted fracture of the 1st proximal phalanx head, with incongruent joint surface. Spine-Outside Consult EXAM: CT CERVICAL SPINE WITHOUT CONTRAST 05/28/2019 [facility] CT DATE: 05/28/2019 19:39 CDT Center INDICATION: - outside study: fall, second interpretation requested COMPARISON: None TECHNIQUE: Noncontrast CT images of the cervical spine, obtained at [facility]. Axial, sagittal and coronal images provided. UT SECTION: ER FINDINGS: The spine is imaged from the skull base to the level of T1. No acute fracture or malalignment is identified. There is likely degenerative grade 1 anterolisthesis of C3 on C4, C4 on C5 as there is no widening of the facets or secondary evidence of acute abnormali ty. The prevertebral space is normal.. No soft tissue abnormality is identified. IMPRESSION: 1. No acute abnormality. 2. Likely degenerative grade 1 anterolisthesis of C3 on C4 and C4 on C5 with additional findings of mild multilevel degenerative changes of the cervical spine. This report is in general agreement with the initial interpretation obtained from the referring facility. Brain-Outside Consult EXAM: CT BRAIN WITHOUT CONTRAST 05/28/2019 [facility] CT DATE: 05/28/2019 Center INDICATION: - outside study: fall interpretation requested, initial images were obtained at [facility]. COMPARISON: None. TECHNIQUE: Axial CT images of the brain were obtained. Sagittal and coronal reformats. IV contrast: None. FINDINGS: There is no parenchymal edema, intra or extra-axial fluid collection, acute hydrocephalus, or herniation. There is no chronic abnormality. The calvarium and skull base are normal. The orbits, globes, paranasal sinuses and mastoid air cells are normal. No abnormality of the extracranial soft tissues. IMPRESSION: No acute intracranial abnormality. I agree with the outside report. Consultation Notes No Data Provided for This Section Discharge Summaries No Data Provided for This Section History and Physicals No Data Provided for This Section Vital Signs Vital Sign Value Date Comments Source Temperature Oral (F) 98.2 F 05/30/2019 [facility] Heart Rate 79 05/30/2019 [facility] Systolic (mm Hg) 117 05/30/2019 [facility] Diastolic (mm Hg) 72 05/30/2019 [facility] Respitory Rate 18 05/30/2019 [facility] Respitory Rate 18 05/30/2019 [facility] Heart Rate 70 05/30/2019 [facility] Temperature Oral (F) 97.7 F 05/30/2019 [facility] Systolic (mm Hg) 116 05/30/2019 [facility] Diastolic (mm Hg) 72 05/30/2019 [facility] Systolic (mm Hg) 146 05/30/2019 [facility] Diastolic (mm Hg) 74 05/30/2019 [facility] Temperature Oral (F) 97.3 F 05/30/2019 [facility] Heart Rate 76 05/30/2019 [facility] Respitory Rate 20 05/30/2019 [facility] Weight 65.909 05/28/2019 [facility] BMI Calculated 28.38 05/28/2019 [facility] Height 152.4 cm 05/28/2019 [facility] Encounters Location Location Encounter Encounter Reason Attending ADM DC Status Source Details Type Number For Provider Date Date Visit [facility] Inpatient [id number] Ike 05/28 05/30 [facility] [place] Steve Dominique /2018 [facility] Procedures No Data Provided for This Section Assessment and Plan Assessment and Plan Date Source Extracted from:Title: Progress Note 05/30/2019 [facility] Author: Kade Ball MD Date: 05/30/19 1.Closed fracture of right tibial plafond(S82.873A) 05/29 s/p closed reduction and ex fix placement by Dr. Ness f/u with Dr. Ness in 1 week for follow up pain control pt ot lovenox ancef ppx completed 2.Closed right fibular fracture(S82.401A) as above 3.Fracture of phalanx of toe(S92.919A) per ORS 4.Acute pain due to trauma(G89.11) mmp 5.Tobacco use disorder(F17.200) 14mg patch 6.Anxiety(F41.9) xanax prn 7.Hypertension(I10) metoprolol 8.Preoperative examination(Z01.818) completed at admission 1.Closed fracture of right tibial plafond(S82.873A) 2.Closed right fibular fracture(S82.401A) 3.Fracture of phalanx of toe(S92.919A) 4.Acute pain due to trauma(G89.11) 5.Tobacco use disorder(F17.200) 6.Anxiety(F41.9) 7.Hypertension(I10) 8.Preoperative examination(Z01.818) lovenox Extracted from:Title: History and Physical Author: Cynthia Blount MD Date: 05/29/19 1.Closed fracture of right tibial plafond(S82.873A) 2.Closed right fibular fracture(S82.401A) 3.Fracture of phalanx of toe(S92.919A) Reduced and splinted in the emergency room Nonweightbearing to right lower extremity To the OR today forright ankle external fixation Physical and Occupational Therapy postoperatively 4.Acute pain due to trauma(G89.11) Continue current multimodal regimen. Make adjustments as needed. 5.Tobacco use disorder(F17.200) Counseled. Nicotine patch. 6.Anxiety(F41.9) Continue home alprazolam. 7.Hypertension(I10) Continue home metoprolol. 8.Preoperative examination(Z01.818) 1) Type of surgery: Right ankle external fixation 2) Medical issues that may interfere with surgery:none 3) Exercise tolerance (METS): >4 METS 4) Imaging: EKG: Sinus rhythmat 78 bpm, normal axis and intervals, no ST or T wave changes. 5) RCRI score with point breakdown: Score of 0 with no prior history of ischemic heart disease, no history of heart failure, no history of diabetes and normal renal function. 6) risks and benefits were discussed with patient at bedside Further workup not indicated Lovenox Likely home at discharge pending physical and Occupational Therapy evaluations and operative alcohol Extracted from:Title: ORS Consult Note Author: Memo Goodman MD Date: 05/28/19 ORS Trauma Consultation Note Reason for Consult:Robert mcconnell Source of Consult:ED Requesting Physician:Dr. Ellis [facility] Attending:Dr. Ness Date of Service:05/29/2019 CHIEF COMPLAINT: "I fell off a ladder and hurt my right ankle." HISTORY OF PRESENT ILLNESS: The patient is a 64-year-old female with a past medical history of hypertension who presents status post fall from a ladder. She was initially seen at [facility] where she was found to have a right p ilon fracture and then transferred to [facility]. Per patient, she was trying to hang a picture on a ladder when she misstepped and fell on her right lower extremity. She no edith immediate pain and deformity of her right ankle. She states since that time she has had increasing pain, inability to bear weight and right swelling and ecchymosis of the right ankle. She denies i njury to any other part of her body. She denies hitting her head or loss of consciousness. PAST MEDICAL HISTORY Hypertension, low back pain. PAST SURGICAL HISTORY: Bilateral tubal ligation. ALLERGIES: Denies. MEDICATIONS: Metoprolol, hydrocodone. SOCIAL HISTORY: One pack per day smoker. Denies alcohol or drug use. Currently unemployed. Right hand dominant. FAMILY HISTORY: Noncontributory. Review of Systems: Gen: Denies fever/chills/night sweats HEENT: Denies vision change, hearing changes CV: Denies CP, Palpitations Resp: Denies SOB, wheezing, cough GI: Denies Abd pain, N/V/D/Constipation. Denies incontinence. : Denies urinary retention/urgency Back/Spine: Denies pain. Neuro: Denies headaches, weakness/numbness in extremities. Integumentary: Denies open wounds, rashes, gu. Endocrine: Denies recent weight changes, Psych: Denies depression, anxiety, suicidal/homicidal ideation. Musculoskeletal: Denies all but HPI. All other systems negative except HPI. Vitals Tmp(F) Pulse BP RR SpO2 FIO2 05/29 09:00 ---- 73 147/80 22 97 2.0L/m 05/29 08:45 ---- 73 130/74 16 97 2.0L/m 05/29 08:30 ---- 88 131/71 17 96 6.0L/m 05/29 08:15 97.1 71 119/66 15 98 6.0L/m 05/29 06:45 98.2 --- ----- -- --- --- 24 Hr Tmax: 99F (37.22c) at 05/29 00:17 Vital Signs are the last 5 in the past 48 hours. Exam: Gen:A/Ox3, + RLE pain, GCS 15 Resp: Unlabored, PAT, equal chest expansion bilaterally CV: RRR, peripheral vascular exam as documented below Abd:NT, ND Pelvis:Nontender to lateral compression, no open wounds. RUE: Inspection: No abrasions, ecchymosis, open wounds or obvious deformity. Compartments S/C. Sensory: SILT in over 1st dorsal webspace, palmar index finger, palmar small finger. Motor: EPL/FPL/2nd finger abduction intact. 5/5 flexion/extension at shoulder/ elbow. Vascular: 2+ radial/ulnar palpable pulses, cap refill <2s in all fingers. LUE: Inspection: No abrasions, ecchymosis, open wounds or obvious deformity. Compartments S/C. Sensory: SILT over 1st dorsal webspace, palmar index finger, palmar small finger. Motor: EPL/FPL/2nd finger abduction intact. 5/5 flexion/extension at shoulder/ elbow. Vascular: 2+ radial/ulnar palpable pulses, cap refill <2s in all fingers. RLE: INSPECTION: Diffuse swelling and ecchymosis around ankle with fracture blisters present. Skin unable to wrinkle. Leg and thigh compartments soft and compressible. No open wounds noted. SENSATION: Intact to light touch in SP/DP/saphenous/sural/tibial distributions. MOTOR: Intact EHL/FHL. Patient unable to flex/extend the ankle secondary to pain and deformity. 5/5 flexion/extension at knee/hip. VASCULAR: Dopplerable DP/PT signals, capillary refill less than 2 seconds in all toes. LLE: Inspection: No abrasions, TTP, ecchymosis, open wounds or obvious deformity. Compartments S/C. Sensory: SILT in Saph/Sural/SP/DP/Tib distributions. Motor: 5/5 EHL/FHL/Gastroc/TA. 5/5 flexion/extension at hip/knee. Vascular: 2+ DP/PT palpable pulses, cap refill <2s in all toes. Labs: Labs (Last four charted values) WBC 10.0 (MAY 29) H 13.0 (MAY 28) Hgb L 11.4 (MAY 29) 13.3 (MAY 28) Hct L 33.4 (MAY 29) 39.7 (MAY 28) Plt 201 (MAY 29) 235 (MAY 28) Na 141 (MAY 29) 140 (MAY 28) K 3.5 (MAY 29) 4.2 (MAY 28) CO2 L 23 (MAY 29) 25 (MAY 28) Cl 107 (MAY 29) 105 (MAY 28) Cr 0.60 (MAY 29) 0.62 (MAY 28) BUN 15 (MAY 29) 14 (MAY 28) Glucose Random 94 (MAY 29) H 102 (MAY 28) Ca L 7.9 (MAY 29) 8.9 (MAY 28) PT 13.4 (MAY 29) 12.6 (MAY 28) INR 1.04 (MAY 29) 0.96 (MAY 28) PTT 33.9 (MAY 29) 30.3 (MAY 28) Imaging: Ankle 3 views DX 05/29/19 04:20:14 IMPRESSION: 1. Interval improvement in alignment of the comminuted distal tibial fractures with straightening of the shaft. 2. Improved alignment of the distal 3rd of the shaft of the right fibula with straightening of the shaft as well. 3. No appreciable change in alignment of the ankle mortise with slight widening laterally. Signed By: Dwight Pryor MD Calcaneus series DX 05/28/19 21:48:50 IMPRESSION: 1. Unchanged alignment of the comminuted, intra-articular tibial plafond. 2. Persistent widening of the lateral clear space and mild lateral subluxation of the talus. 3. Unchanged displaced and angulated distal fibular diaphyseal fracture. 4. Impacted fracture of the 1st proximal phalanx head, with incongruent joint surface. Signed By: Oskar Austin MD Foot series DX 05/28/19 21:48:50 IMPRESSION: 1. Unchanged alignment of the comminuted, intra-articular tibial plafond. 2. Persistent widening of the lateral clear space and mild lateral subluxation of the talus. 3. Unchanged displaced and angulated distal fibular diaphyseal fracture. 4. Impacted fracture of the 1st proximal phalanx head, with incongruent joint surface. Signed By: Oskar Austin MD Knee 3 views DX 05/28/19 22:53:45 IMPRESSION: No acute abnormality. Signed By: Oskar Austin MD Tibia fibula series DX 05/28/19 21:48:50 IMPRESSION: 1. Unchanged alignment of the comminuted, intra-articular tibial plafond. 2. Persistent widening of the lateral clear space and mild lateral subluxation of the talus. 3. Unchanged displaced and angulated distal fibular diaphyseal fracture. 4. Impacted fracture of the 1st proximal phalanx head, with incongruent joint surface. Signed By: Oskar Austin MD Brain-Outside Consult CT 05/28/19 19:58:03 IMPRESSION: No acute intracranial abnormality. I agree with the outside report. Signed By: Kaitlyn Elliott MD Spine-Outside Consult CT 05/28/19 20:02:08 IMPRESSION: 1. No acute abnormality. 2. Likely degenerative grade 1 anterolisthesis of C3 on C4 and C4 on C5 with additional findings of mild multilevel degenerative changes of the cervical spine. This report is in general agreement with the initial interpretation obtained from the referring facility. Signed By: Oskar Austin MD Assessment: The patient is a 64-year-old female status post fall sustainin. Closed right pilon fracture. 2. Closed right 1st toe proximal phalanx fracture. PLAN: 1. Weightbearing status: Nonweightbearing right lower extremity. 2. Placed into a short-leg splint to the right lower extremity. 3. Admit: Hospitalist. 4. Pending surgeries: To OR 05/29 with ORS trauma for right ankle external fixation. 5. Disposition: Pending OR in a.m. Please call [phone] with any questions or emergencies. Memo Goodman MD PGY2 MSO [id number] Pager #[phone] I, Alonso Ness, have examined the patient and agree with the above assessment and plan on 05/29/2019. Plan: to the OR for Ex fix R pilon, NPO, consent, IV abx, dvt prophylaxsis. Will need ORIF once soft tissues allow. Plan of Care No Data Provided for This Section Social History Social History Date Source Social History TypeResponse 05/29/2019 [facility] Substance Abuse Use: None. IV drug use: No. Drug use interferes with work/home: No. Household substance abuse concerns: No. Cessation Education Provided: No. Alcohol Never, Previous treatment: None. Smoking Status Current every day smoker; Type: Cigarettes; Ready to change: Yes; Concerns about tobacco use in household: No; Exposure to Tobacco Smoke None; Cigarette Smoking Last 365 Days Yes; Reg Smoking Cessation Counseling Yes entered on: 05/29/19 Family History No Data Provided for This Section Advance Directives No Data Provided for This Section Functional Status No Data Provided for This Section
--- OUTSIDE RECORDS SUMMARY | 2019-06-05 15:19 | XMS REPORT | Summary of Care ---
:1955 Author Organization [facility] Address [address], [place] [address]- Encounter HQ Encntr_maritza(FIN) [id number] Date(s): 05/28/19 - 05/30/[address] Professional Services provided by [facility] [place] [address]- Discharge Disposition: Home or Self Care Attending Physician: Kade Ball MD Admitting Physician: Kade Blal MD Referring Physician: Ike Dominique MD Vital Signs Most recent to oldest [Reference 1 2 3 Range]: Height 152.4 cm (05/28/19 6:46 PM) Temperature Oral [96.4-99.1 DegF] 98.2 DegF 97.7 DegF 97.3 DegF (05/30/19 11:57 AM) (05/30/19 7:34 AM) (05/30/19 4:25 AM) Blood Pressure [90-140/60-90 117/72 mmHg 116/72 mmHg 146/74 mmHg mmHg] (05/30/19 11:57 AM) (05/30/19 7:34 AM) *HI* (05/30/19 4:25 AM) Respiratory Rate [14-20 BRMIN] 18 BRMIN 18 BRMIN 20 BRMIN (05/30/19 11:57 AM) (05/30/19 7:34 AM) (05/30/19 4:25 AM) Peripheral Pulse Rate [60-100 79 bpm 70 bpm 76 bpm bpm] (05/30/19 11:57 AM) (05/30/19 7:34 AM) (05/30/19 4:25 AM) Weight 65.909 kg (05/28/19 6:46 PM) Body Mass Index 28.38 m2 (05/28/19 6:46 PM) Problem List No data available for this section Allergies, Adverse Reactions, Alerts No Known Medication Allergies Medications acetaminophen 650 mg, 2 tab, Route: PO, Drug form: TAB, Q4H, Dosing Weight 65.909, kg, PRN Pain 1-3/Temp > 100.4 F, Start date: 05/29/19 1:50:00 CDT, Duration: 30 day, Stop date: 06/28/19 1:49:00 CDT, 0 Notes: Do not exceed 4 gm/day. (Same as: Tylenol) Start Date: 05/29/19 Stop Date: 05/30/19 Status: DiscontinuedALPRAZOLam 0.5 mg oral tablet 0.5 mg, 1 tab, Route: PO, Drug form: TAB, BID, Dosing Weight 65.909, kg, PRN Anxiety, Start date: 05/29/19 1:51:00 CDT, Duration: 30 day, Stop date: 1:50:00 CDT, 0 Notes: With food or milk(Same as: Xanax) Start Date: 05/29/19 Stop Date: 05/30/19 Status: DiscontinuedALPRAZOLam 0.5 mg oral tablet 0.5 mg=1 tab, PO, BID, PRN as needed for anxiety, 0 Refill(s) Start Date: 05/29/19 Status: OrderedAncef 1 gm, Route: IVP, Drug form: PDR/INJ, ABXQ8H, Dosing Weight 65.909, kg, Start date: 05/29/19 16:00:00 CDT, Duration: 1 day, Stop date: 05/30/19 8:00:00 CDT, ABX Indication: Surgical Prophylaxis, 0 Notes: (Same As: Danita Townsend) MEDICATION WASTE Product Size: 1000 mgProduct Wasted: ___ mg Start Date: 05/29/19 Stop Date: 05/30/19 Status: CompletedAncef 1 gm, Route: IVP, Drug form: PDR/INJ, ABXQ8H, Dosing Weight 65.909, kg, Start date: 05/29/19 9:00:00CDT, Duration: 1 day, Stop date: 05/30/19 1:00:00 CDT, ABX Indication: Surgical Prophylaxis, 0 Notes: (Same As: Danita Townsend) MEDICATION WASTE Product Size: 1000 mgProduct Wasted: ___ mg Start Date: 05/29/19 Stop Date: 05/29/19 Status: DiscontinuedANES acetaminophen 1,000 mg, Route: PO, Drug form: TAB, ONCE, Dosing Weight 65.909, kg, PRN Pain Score 1-3, Start date:05/29/19 8:34:00 CDT Start Date: 05/29/19 Stop Date: 05/29/19 Status: CompletedANES albuterol 0.083% inhalation solution 2.49 mg, 3 mL, Route: NEB, Drug form: SOLN, Q20Min, Dosing Weight 65.909, kg, PRN Wheezing, Priority: STAT, Start date: 05/29/19 8:34:00 CDT, Duration: 1 day , Stop date: 05/30/19 8:33:00 CDT, 0 Notes: SEE RT DOCUMENTATION (Same as: Proventil) Start Date: 05/29/19 Stop Date: 05/29/19 Status: DiscontinuedANES diphenhydrAMINE 12.5 mg, 0.25 mL, Route: IVP, Drug form: INJ, Q6H, Dosing Weight 65.909, kg, PRN Itching, Start date: 05/29/19 8:34:00 CDT, Duration: 1 day, Stop date: 05/30 8:33:00 CDT, 0 Notes: (Same as: Benadryl) Start Date: 05/29/19 Stop Date: 05/29/19 Status: DiscontinuedANES ePHEDrine 5 mg, 0.1 mL, Route: IVP, Drug form: INJ, Q5Min, Dosing Weight 65.909, kg, PRN Low Blood Pressure, Start date: 05/29/19 8:34:00 CDT, Duration: 1 day, Stop date : 05/30/19 8:33:00 CDT, 0 Notes: (Same as: ePHEDrine Sulfate) Start Date: 05/29/19 Stop Date: 05/29/19 Status: DiscontinuedANES fentaNYL 50 microgram, 1 mL, Route: IVP, Drug form: INJ, Q5Min, Dosing Weight 65.909, kg , PRN Pain Score 7-10, Priority: Routine, Start date: 05/29/19 8:34:00 CDT, Duration: 2 doses or times, Stop date: Limited# of times, 0 Notes: (Same as: Sublimaze) Preservative free. Start Date: 05/29/19 Stop Date: 05/29/19 Status: DiscontinuedANES fentaNYL 25 microgram, 0.5 mL, Route: IVP, Drug form: INJ, Q5Min, Dosing Weight 65.909, kg, PRN Pain Score 4-6, Priority: Routine, Start date: 05/29/19 8:34:00 CDT, Duration: 4 doses or times, Stop date: Limited # of times, 0 Notes: (Same as: Sublimaze) Preservative free. Start Date: 05/29/19 Stop Date: 05/29/19 Status: DiscontinuedANES flumazenil 0.2 mg, 2 mL, Route: IVP, Drug form: INJ, PRN, Dosing Weight 65.909, kg, PRN Benzodiazepine Reversal, Initial dose, Start date: 05/29/19 8:34:00 CDT, Duration: 1 day, Stop date: 05/30/19 8:33:00 CDT, 0 Notes: (Same as: Romazicon) Start Date: 05/29/19 Stop Date: 05/29/19 Status: DiscontinuedANES hydrALAZINE 10 mg, 0.5 mL, Route: IVP, Drug form: INJ, Q20Min, Dosing Weight 65.909, kg, PRN Elevated BP, Start date: 05/29/19 8:34:00 CDT, Duration: 2 doses or times, Stop date: Limited # of times, 0 Notes: (Same as: Apresoline)Push over 5 minutes Start Date: 05/29/19 Stop Date: 05/29/19 Status: DiscontinuedANES HYDROmorphone 0.5 mg, Route: IVP, Q5Min, Dosing Weight 65.909, kg, PRN Pain Score 7-10, Start date: 05/29/19 8:34:00 CDT, Duration: 4 doses or times, Stop date: Limited # of times Start Date: 05/29/19 Stop Date: 05/29/19 Status: CompletedANES labetalol 10 mg, 2 mL, Route: IVP, Drug form: INJ, Q5Min, Dosing Weight 65.909, kg, PRN Elevated BP, Start date: 05/29/19 8:34:00 CDT, Duration: 5 doses or times, Stop date: Limited # of times, 0 Start Date: 05/29/19 Stop Date: 05/29/19 Status: DiscontinuedANES meperidine 12.5 mg, 0.5 mL, Route: IVP, Drug form: INJ, Q30Min, Dosing Weight 65.909, kg, PRN Other -See Comment, For shivering, Start date: 05/29/19 8:34:00 CDT, Duration: 2 doses or times, Stop date: Limited # of times, 0 Notes: (Same as: Demerol) "Use Precaution in Elderly, Seizure disorders, and Renal impairment" Start Date: 05/29/19 Stop Date: 05/29/19 Status: DiscontinuedANES midazolam 1 mg, 1 mL, Route: IVP, Drug form: SOLN, Q5Min, Dosing Weight 65.909, kg, PRN Anxiety, Start date: 05/29/19 8:34:00 CDT, Duration: 2 doses or times, Stop date : Limited # of times, 0 Notes: Same as: Versed Start Date: 05/29/19 Stop Date: 05/29/19 Status: DiscontinuedANES morphine Sulfate 2 mg, 0.5 mL, Route: IVP, Drug form: SOLN, Q5Min, Dosing Weight 65.909, kg, PRN Pain Score 4-6, Start date: 05/29/19 8:34:00 CDT, Duration: 5 doses or times, Stop date: Limited # of times, 0 Notes: (Same as:MORPhine Sulfate) Start Date: 05/29/19 Stop Date: 05/29/19 Status: DiscontinuedANES naloxone 0.4 mg, 1 mL, Route: IVP, Drug form: INJ, Q2MIN, Dosing Weight 65.909, kg, PRN Narcotic Reversal, Start date: 05/29/19 8:34:00 CDT, Duration: 8 doses or times , Stop date: Limited # of times, 0 Notes: (Same as: Narcan) Start Date: 05/29/19 Stop Date: 05/29/19 Status: DiscontinuedANES ondansetron 4 mg, 2 mL, Route: IVP, Drug form: INJ, ONCE, Dosing Weight 65.909, kg, PRN Nausea & Vomiting, Start date: 05/29/19 8:34:00 CDT, 0 Notes: (Same as: Zofran) MEDICATION WASTE Product Size: 4 mgProduct Wasted: ___ mg Start Date: 05/29/19 Stop Date: 05/29/19 Status: DiscontinuedANES oxyCODONE 5 mg immediate release tablet 5 mg, 1 tab, Route: PO, Drug form: TAB, Q4H, Dosing Weight 65.909, kg, PRN Pain Score 4-6, Start date: 05/29/19 8:34:00 CDT, Duration: 1 day, Stop date: 8:33:00 CDT, 0 Notes: (Same as: Roxicodone) Start Date: 05/29/19 Stop Date: 05/29/19 Status: DiscontinuedANES oxyCODONE 5 mg immediate release tablet 10 mg, 2 tab, Route: PO, Drug form: TAB, Q4H, Dosing Weight 65.909, kg, PRN Pain Score 7-10, Start date: 05/29/19 8:34:00 CDT, Duration: 1 day, Stop date: 05/30/19 8:33:00 CDT, 0 Notes: (Same as: Roxicodone) Start Date: 05/29/19 Stop Date: 05/29/19 Status: DiscontinuedANES promethazine 6.25 mg, 0.25 mL, Route: IVPB, Drug form: INJ, ONCE, Dosing Weight 65.909, kg, PRN Nausea & Vomiting, Start date: 05/29/19 8:34:00 CDT, 0 Notes: Do not give IV push. (Same as: Phenergan) Start Date: 05/29/19 Stop Date: 05/29/19 Status: DiscontinuedceFAZolin (ANES) Route: IV, Drug form: INJ, ONCE, Stop date: 05/29/19 8:15:00 CDT Start Date: 05/29/19 Stop Date: 05/29/19 Status: Completedcelecoxib 200 mg, 1 cap, Route: PO, Drug form: CAP, [id number], Dosing Weight 65.909, kg, Not recommended for eGFR < 30 or acute kidney injury., Start date: 05/29/19 2 :00:00 CDT, Duration: 30 day, Stop date: 06/27/19 14:00:00 CDT, 0 Notes: NSAID. Please check indication. Not for seizure. (Same As: CeleBREX) Start Date: 05/29/19 Stop Date: 05/30/19 Status: Discontinueddexamethasone (ANES) Route: IV, Drug form: INJ, ONCE, Stop date: 05/29/19 8:26:00 CDT Start Date: 05/29/19 Stop Date: 05/29/19 Status: CompletedDextrose 50% Syringe 12.5 gm, 25 mL, Route: IVP, Drug Form: INJ, Dosing Weight 65.909, kg, PRN, PRN Blood Glucose Results, Start date: 05/29/19 1:50:00 CDT, Duration: 30 day, Stop date: 06/28/19 1:49:00 CDT, 0 Start Date: 05/29/19 Stop Date: 05/30/19 Status: DiscontinuedDextrose 50% Syringe 25 gm, 50 mL, Route: IVP, Drug Form: INJ, Dosing Weight 65.909, kg, PRN, PRN Blood Glucose Results, Start date: 05/29/19 1:50:00 CDT, Duration: 30 day, Stop date: 06/28/19 1:49:00 CDT, 0 Start Date: 05/29/19 Stop Date: 05/30/19 Status: Discontinuedenoxaparin 30 mg, 0.3 mL, Route: SUB-Q, Drug form: INJ, [id number], Dosing Weight 65.909, kg , Start date: 05/29/19 2:00:00 CDT, Duration: 30 day, Stop date: 06/27/19 14:00: 00 CDT, 0 Notes: (Same as: Lovenox) Start Date: 05/29/19 Stop Date: 05/30/19 Status: Discontinuedenoxaparin 30 mg/0.3 mL subcutaneous solution 30 mg=0.3 mL, SUB-Q, [id number], X 21 day, # 13 mL, 0 Refill(s) Start Date: 05/30/19 Stop Date: 06/20/19 Status: OrderedePHEDrine (ANES) Route: IV, Drug form: INJ, ONCE, Stop date: 05/29/19 8:26:00 CDT Start Date: 05/29/19 Stop Date: 05/29/19 Status: Completedfamotidine (ANES) Route: IV, Drug form: INJ, ONCE, Stop date: 05/29/19 8:26:00 CDT Start Date: 05/29/19 Stop Date: 05/29/19 Status: CompletedfentaNYL (ANES) Route: IV, Drug form: INJ, ONCE, Stop date: 05/29/19 8:10:00 CDT Start Date: 05/29/19 Stop Date: 05/29/19 Status: Completedgabapentin 300 mg oral capsule 300 mg, Route: PO, Drug form: CAP, ONCE, Dosing Weight 65.909, kg, Start date: 05/29/19 9:37:00 CDT,Stop date: 05/29/19 9:37:00 CDT Start Date: 05/29/19 Stop Date: 05/29/19 Status: Completedglucagon 1 mg, Route: IM, Drug form: PDR/INJ, PRN, Dosing Weight 65.909, kg, PRN Blood Glucose Results, Startdate: 05/29/19 1:50:00 CDT, Duration: 30 day, Stop date: 06/28/19 1:49:00 CDT, 0 Start Date: 05/29/19 Stop Date: 05/30/19 Status: DiscontinuedketAMINE 40 mg, Route: IV, ONCE, Dosing Weight 65.909, kg, Start date: 05/29/19 1:30:00 CDT, Stop date: 05/29/19 1:30:00 CDT Start Date: 05/29/19 Stop Date: 05/29/19 Status: CompletedketAMINE 20 mg, 2 mL, Route: IV, Drug form: SOLN, ONCE, Dosing Weight 65.909, kg, Start date: 05/29/19 0:11:00 CDT, Stop date: 05/29/19 0:11:00 CDT, 0 Notes: (Same as: keTALAR) Start Date: 05/29/19 Stop Date: 05/29/19 Status: CompletedLactated Ringers Injection IV (ANES) 1000 mL Route: IV, Total Volume: 1,000, Start date: 05/29/19 7:34:00 CDT, Stop date: 01/12 8:34:00 CDT Start Date: 05/29/19 Stop Date: 05/29/19 Status: CompletedLactated Ringers Injection IV 1,000 mL 1,000 mL, Rate: 125 ml/hr, Infuse over: 8 hr, Route: IV, Dosing Weight 65.909 kg , Total Volume: 1,000, Start date: 05/29/19 8:34:00 CDT, Duration: 1 day, Stop date: 05/30/19 8:33:00 CDT, 1.7, m2, 0 Start Date: 05/29/19 Stop Date: 05/29/19 Status: Discontinuedlidocaine (ANES) Route: IV, Drug form: INJ, ONCE, Stop date: 05/29/19 8:15:00 CDT Start Date: 05/29/19 Stop Date: 05/29/19 Status: Completedmelatonin 3 mg, 1 tab, Route: PO, Drug form: TAB, Bedtime, Dosing Weight 65.909, kg, PRN Insomnia, Start date:05/29/19 1:50:00 CDT, Duration: 30 day, Stop date: 1:49:00 CDT, 0 Notes: (Same as: Melatonin) Start Date: 05/29/19 Stop Date: 05/30/19 Status: Discontinuedmethocarbamol 750 mg, 1 tab, Route: PO, Drug form: TAB, Q6Hnow, Dosing Weight 65.909, kg, Start date: 05/29/19 2:00:00 CDT, Duration: 30 day, Stop date: 06/27/19 20:00: 00 CDT, 0 Notes: (Same as:Robaxin) Start Date: 05/29/19 Stop Date: 05/30/19 Status: Discontinuedmetoprolol succinate 100 mg oral capsule, extended release 100 mg=1 cap, PO, Daily, 0 Refill(s) Start Date: 05/29/19 Status: Orderedmidazolam (ANES) Route: IV, Drug form: SOLN, ONCE, Stop date: 05/29/19 8:10:00 CDT Start Date: 05/29/19 Stop Date: 05/29/19 Status: Completedmorphine 15 mg oral tablet, immediate release 15 mg, 1 tab, Route: PO, Drug form: TAB, Q4H, Dosing Weight 65.909, kg, PRN Pain Score 4-6, Start date: 05/29/19 14:00:00 CDT, Duration: 30 day, Stop date: 06/28/19 13:59:00 CDT, 0 Notes: (Same as:MORPhine Sulfate) Start Date: 05/29/19 Stop Date: 05/30/19 Status: Discontinuedmorphine 15 mg oral tablet, immediate release 30 mg, 2 tab, Route: PO, Drug form: TAB, Q4H, Dosing Weight 65.909, kg, PRN Pain Score 7-10, Start date: 05/29/19 14:00:00 CDT, Duration: 30 day, Stop date : 06/28/19 13:59:00 CDT, 0 Notes: (Same as:MORPhine Sulfate) Start Date: 05/29/19 Stop Date: 05/30/19 Status: Discontinuedmorphine Sulfate 4 mg, Route: IVP, ONCE, Dosing Weight 65.909, kg, Priority: STAT, Start date: 1:51:00 CDT, Stop date: 05/29/19 1:51:00 CDT Start Date: 05/29/19 Stop Date: 05/29/19 Status: Completedmorphine Sulfate 4 mg, 1 mL, Route: IVP, Drug form: SOLN, Q4H, Dosing Weight 65.909, kg, PRN Pain Score 7-10, Start date: 05/29/19 14:00:00 CDT, Duration: 30 day, Stop date : 06/28/19 13:59:00 CDT, 0 Notes: (Same as:MORPhine Sulfate) Start Date: 05/29/19 Stop Date: 05/30/19 Status: Discontinuedmorphine Sulfate 4 mg, Route: IVP, ONCE, Dosing Weight 65.909, kg, Priority: STAT, Start date: 21:31:00 CDT,Stop date: 05/28/19 21:31:00 CDT Start Date: 05/28/19 Stop Date: 05/28/19 Status: Completedmorphine Sulfate 4 mg, Route: IVP, ONCE, Dosing Weight 65.909, kg, Priority: STAT, Start date: 19:20:00 CDT,Stop date: 05/28/19 19:20:00 CDT Start Date: 05/28/19 Stop Date: 05/28/19 Status: Completedmorphine Sulfate 2 mg, 0.5 mL, Route: IVP, Drug form: SOLN, ONCE, Dosing Weight 65.909, kg, Start date: 05/29/19 5:53:00 CDT, Stop date: 05/29/19 5:53:00 CDT, 0 Notes: (Same as:MORPhine Sulfate) Start Date: 05/29/19 Stop Date: 05/29/19 Status: Completednicotine 21 mg, 1 patch, Route: TOP, Drug form: ERFILM, Daily, Dosing Weight 65.909, kg, Start date: 199:00:00 CDT, Duration: 30 day, Stop date: 06/27/19 9:00:00 CDT, 0 Notes: (Same as: Habitrol)"Remove old patch before application of new patch "WASTE: F/P - P Waste Black; E - P Waste Black Start Date: 05/29/19 Stop Date: 05/29/19 Status: Discontinuednicotine 14 mg, 1 patch, Route: TOP, Drug form: ERFILM, Q24H, Dosing Weight 65.909, kg, Start date: 05/29/19 12:00:00 CDT, Duration: 30 day, Stop date: 06/27/19 12:00: 00 CDT, 0 Notes: (Same as: Habitrol)"Remove old patch before application of new patch "WASTE: F/P - P Waste Black; E - P Waste Black Start Date: 05/29/19 Stop Date: 05/30/19 Status: DiscontinuedNorco 10/325 oral tablet 1 tab, PO, Q4H, PRN for pain, X 4 day, # 40 tab, 0 Refill(s), other Start Date: 05/30/19 Stop Date: 06/03/19 Status: Orderedondansetron 4 mg, Route: IVP, Drug form: INJ, ONCE, Dosing Weight 65.909, kg, Priority: STAT , Start date: 05/29/19 1:51:00 CDT, Stop date: 05/29/19 1:51:00 CDT Start Date: 05/29/19 Stop Date: 05/29/19 Status: Completedondansetron 4 mg, 2 mL, Route: IVP, Drug form: INJ, Q4H, Dosing Weight 65.909, kg, PRN Nausea & Vomiting, Start date: 05/29/19 14:00:00 CDT, Duration: 30 day, Stop date: 06/28/19 13:59:00 CDT, 0 Notes: (Same as: Talita) MEDICATION WASTE Product Size: 4 mgProduct Wasted: ___ mg Start Date: 05/29/19 Stop Date: 05/30/19 Status: Discontinuedondansetron 4 mg, 2 mL, Route: IVP, Drug form: INJ, Q8H, Dosing Weight 65.909, kg, PRN Nausea & Vomiting, Start date: 05/29/19 1:50:00 CDT, Duration: 30 day, Stop date: 06/28/19 1:49:00 CDT, 0 Notes: (Same as: Talita) MEDICATION WASTE Product Size: 4 mgProduct Wasted: ___ mg Start Date: 05/29/19 Stop Date: 05/29/19 Status: Discontinuedondansetron (ANES) Route: IV, Drug form: INJ, ONCE, Stop date: 05/29/19 8:26:00 CDT Start Date: 05/29/19 Stop Date: 05/29/19 Status: Completedpropofol 120 mg, Route: IV, ONCE, Dosing Weight 65.909, kg, Start date: 05/29/19 1:30:00 CDT, Stop date: 05/29/19 1:30:00 CDT Start Date: 05/29/19 Stop Date: 05/29/19 Status: Completedpropofol (ANES) Route: IV, Drug form: INJ, ONCE, Stop date: 05/29/19 8:15:00 CDT Start Date: 05/29/19 Stop Date: 05/29/19 Status: Completedsenna 17.2 mg, 2 tab, Route: PO, Drug Form: TAB, Dosing Weight 65.909, kg, Bedtime, Start date: 05/29/19 21:00:00 CDT, Duration: 30 day, Stop date: 06/27/19 21:00: 00 CDT, 0 Notes: (Same as: Senokot) Start Date: 05/29/19 Stop Date: 05/30/19 Status: DiscontinuedToprol-XL 100 mg oral tablet, extended release 100 mg, 2 tab, Route: PO, Drug form: ERTAB, Daily, Start date: 05/29/19 9:00:00 CDT, Duration: 30 day, Stop date: 06/27/19 9:00:00 CDT, 0 Notes: (Same as: Toprol XL) May split tab, but do not crush. Start Date: 05/29/19 Stop Date: 05/30/19 Status: Discontinuedtramadol 100 mg, 2 tab, Route: PO, Drug form: TAB, Q6Hnow, Dosing Weight 65.909, kg, PRN Pain Score 7-10, Start date: 05/29/19 1:49:00 CDT, Duration: 5 day, Stop date: 06/03/19 1:48:00 CDT, 0 Notes: Not to exceed 400mg/day. (Same As: Ultram) Start Date: 05/29/19 Stop Date: 05/29/19 Status: Discontinuedtramadol 50 mg, 1 tab, Route: PO, Drug form: TAB, Q6H, Dosing Weight 65.909, kg, PRN Pain Score 4-6, Start date: 05/29/19 1:49:00 CDT, Duration: 5 day, Stop date: 1:48:00 CDT, 0 Notes: Not to exceed 400mg/day. (Same As: Ultram) Start Date: 05/29/19 Stop Date: 05/29/19 Status: Discontinued Results Most recent to oldest 1 2 3 [Reference Range]: Neutrophils # [1.5-8.1 6.2 K/CMM 8.0 K/CMM 10.9 K/CMM K/CMM] (05/30/19 4:04 AM) (05/29/19 3:47 AM) *HI* (05/28/19 8:03 PM) Lymphocytes # [1.0-5.5 1.7 K/CMM 1.2 K/CMM 1.1 K/CMM K/CMM] (05/30/19 4:04 AM) (05/29/19 3:47 AM) (05/28/19 8:03 PM) Monocytes # [0.0-0.8 K/CMM] 0.6 K/CMM 0.8 K/CMM 0.8 K/CMM (05/30/19 4:04 AM) (05/29/19 3:47 AM) (05/28/19 8:03 PM) Eosinophils # [0.0-0.5 0.1 K/CMM K/CMM] (05/28/19 8:03 PM) Basophils # [0.0-0.2 K/CMM] 0.1 K/CMM (05/28/19 8:03 PM) eGFR 96 mL/min/1.73m2 1 97 mL/min/1.73m2 2 96 mL/min/1.73m2 3 *NA* *NA* *NA* (05/30/19 4:04 AM) (05/29/19 3:47 AM) (05/28/19 8:29 PM) ABO/Rh O POS *Unknown* (05/28/19 9:33 PM) Antibody Scrn Negative (05/28/19 9:33 PM) AGAP [10.0-20.0 mEq/L] 12.7 mEq/L 14.5 mEq/L 14.2 mEq/L (05/30/19 4:04 AM) (05/29/19 3:47 AM) (05/28/19 8:29 PM) Basophils [0.0-1.0 %] 0.3 % 0.3 % 0.6 % (05/30/19 4:04 AM) (05/29/19 3:47 AM) (05/28/19 8:03 PM) BUN [7-22 mg/dL] 12 mg/dL 15 mg/dL 14 mg/dL (05/30/19 4:04 AM) (05/29/19 3:47 AM) (05/28/19 8:29 PM) Calcium Lvl [8.5-10.5 mg/dL] 8.5 mg/dL 7.9 mg/dL 8.9 mg/dL (05/30/19 4:04 AM) *LOW* (05/28/19 8: PM) (05/29/19 3:47 AM) Chloride Lvl [95-109 mEq/L] 107 mEq/L 107 mEq/L 105 mEq/L (05/30/19 4:04 AM) (05/29/19 3:47 AM) (05/28/19 8:29 PM) CO2 [24-32 mEq/L] 24 mEq/L 23 mEq/L 25 mEq/L (05/30/19 4:04 AM) *LOW* (05/28/19 8:29 PM) (05/29/19 3:47 AM) Creatinine Lvl [0.50-1.40 0.63 mg/dL 0.60 mg/dL 0.62 mg/dL mg/dL] (05/30/19 4:04 AM) (05/29/19 3:47 AM) (05/28/19 8:29 PM) Eosinophils [0.0-4.0 %] 0.4 % 0.4 % 0.6 % (05/30/19 4:04 AM) (05/29/19 3:47 AM) (05/28/19 8:03 PM) Glucose Lvl [70-99 mg/dL] 94 mg/dL 94 mg/dL 102 mg/dL (05/30/19 4:04 AM) (05/29/19 3:47 AM) *HI* (05/28/19 8:29 PM) Hct [36.0-48.0 %] 31.4 % 33.4 % 39.7 % *LOW* *LOW* (05/28/19 8:03 PM) (05/30/19 4:04 AM) (05/29/19 3:47 AM) Hgb [12.0-16.0 g/dL] 10.7 g/dL 11.4 g/dL 13.3 g/dL *LOW* *LOW* (05/28/19 8:03 PM) (05/30/19 4:04 AM) (05/29/19 3:47 AM) INR [0.85-1.17] 1.04 0.96 (05/29/19 3:47 AM) (05/28/19 8:03 PM) Potassium Lvl [3.5-5.1 3.7 mEq/L 3.5 mEq/L 4.2 mEq/L mEq/L] (05/30/19 4:04 AM) (05/29/19 3:47 AM) (05/28/19 8:29 PM) Lymphocytes [20.0-40.0 %] 19.7 % 12.3 % 8.7 % *LOW* *LOW* *LOW* (05/30/19 4:04 AM) (05/29/19 3:47 AM) (05/28/19 8:03 PM) MCH [27.0-31.0 pg] 32.7 pg 32.7 pg 32.4 pg *HI* *HI* *HI* (05/30/19 4:04 AM) (05/29/19 3:47 AM) (05/28/19 8:03 PM) MCHC [32.0-36.0 g/dL] 34.1 g/dL 34.0 g/dL 33.5 g/dL (05/30/19 4:04 AM) (05/29/19 3:47 AM) (05/28/19 8:03 PM) MCV [80.0-98.0 fL] 95.9 fL 96.3 fL 96.8 fL (05/30/19 4:04 AM) (05/29/19 3:47 AM) (05/28/19 8:03 PM) Monocytes [2.0-12.0 %] 7.6 % 7.5 % 6.3 % (05/30/19 4:04 AM) (05/29/19 3:47 AM) (05/28/19 8:03 PM) MPV [7.4-10.4 fL] 9.8 fL 9.6 fL 9.5 fL (05/30/19 4:04 AM) (05/29/19 3:47 AM) (05/28/19 8:03 PM) Sodium Lvl [135-145 mEq/L] 140 mEq/L 141 mEq/L 140 mEq/L (05/30/19 4:04 AM) (05/29/19 3:47 AM) (05/28/19 8:29 PM) Platelet [133-450 K/CMM] 189 K/CMM 201 K/CMM 235 K/CMM (05/30/19 4:04 AM) (05/29/19 3:47 AM) (05/28/19 8:03 PM) Segs [45.0-75.0 %] 72.0 % 79.5 % 83.8 % (05/30/19 4:04 AM) *HI* *HI* (05/29/19 3:47 AM) (05/28/19 8:03 PM) PT [12.0-14.7 seconds] 13.4 seconds 12.6 seconds (05/29/19 3:47 AM) (05/28/19 8:03 PM) PTT [22.9-35.8 seconds] 33.9 seconds 30.3 seconds (05/29/19 3:47 AM) (05/28/19 8:03 PM) RBC [4.20-5.40 M/CMM] 3.28 M/CMM 3.47 M/CMM 4.10 M/CMM *LOW* *LOW* *LOW* (05/30/19 4:04 AM) (05/29/19 3:47 AM) (05/28/19 8:03 PM) RDW [11.5-14.5 %] 14.1 % 14.6 % 14.6 % (05/30/19 4:04 AM) *HI* *HI* (05/29/19 3:47 AM) (05/28/19 8:03 PM) WBC [3.7-10.4 K/CMM] 8.6 K/CMM 10.0 K/CMM 13.0 K/CMM (05/30/19 4:04 AM) (05/29/19 3:47 AM) *HI* (05/28/19 8:03 PM) 1Result Comment: The eGFR is calculated using the CKD-EPI formula. In most young , healthy individualsthe eGFR will be >90 mL/min/1.73m2. The eGFR declines with age. An eGFR of 60-89 may be normal insome populations, particularly the elderly, for whom the CKD-EPI formula has not been extensively validated. Use of the eGFR is not recommended in the following populations: Individuals with unstable creatinine concentrations, including patients and those with serious co-morbid conditions. Patients with extremes in muscle mass or diet. The data above are obtained from the [employer] ( [employer]) which additionally recommends that when the eGFR is used in patients with extremes of body mass index for purposesof drug dosing, the eGFR should be multiplied by the estimated BMI.2Result Comment: The eGFR is calculated using the CKD-EPI formula. In most young, healthy individualsthe eGFR will be >90 mL/min/1.73m2. The eGFR declines with age. An eGFR of 60-89 may be normal insome populations, particularly the elderly, for whom the CKD-EPI formula has not been extensively validated. Use of the eGFR is not recommended in the following populations: Individuals with unstable creatinine concentrations, including patients and those with serious co-morbid conditions. Patients with extremes in muscle mass or diet. The data above are obtained from the [employer] ( [employer]) which additionally recommends that when the eGFR is used in patients with extremes of body mass index for purposesof drug dosing, the eGFR should be multiplied by the estimated BMI.3Result Comment: The eGFR is calculated using the CKD-EPI formula. In most young, healthy individualsthe eGFR will be >90 mL/min/1.73m2. The eGFR declines with age. An eGFR of 60-89 may be normal insome populations, particularly the elderly, for whom the CKD-EPI formula has not been extensively validated. Use of the eGFR is not recommended in the following populations: Individuals with unstable creatinine concentrations, including patients and those with serious co-morbid conditions. Patients with extremes in muscle mass or diet. The data above are obtained from the [employer] Program ( [employer]) which additionally recommends that when the eGFR is used in patients with extremes of body mass index for purposesof drug dosing, the eGFR should be multiplied by the estimated BMI. Immunizations No data available for this section Procedures No data available for this section Social History Social History Type Response Substance Abuse Use: None. IV drug use: No. Drug use interferes with work/ home: No. Household substance abuse concerns: No. Cessation Education Provided: No. Alcohol Never, Previous treatment: None. Smoking Status Current every day smoker; Type: Cigarettes; Ready to change: Yes; Concerns about tobacco use in household: No; Exposure to Tobacco Smoke None ; Cigarette Smoking Last 365 Days Yes; Reg Smoking Cessation Counseling Yes entered on: 05/29/19 Assessment and Plan Extracted from: Title: Progress Note Author: Kade Ball MD Date: 05/30/19 1.Closed [...] disorder(F17.200) 6.Anxiety(F41.9) 7.Hypertension(I10) 8.Preoperative examination(Z01.818) lovenox Extracted from: Title: History and Physical Author: Cynthia Blount MD [...] Occupational Therapy evaluations and operative alcohol Extracted from: Title: ORS Consult Note Author: Memo Goodman MD [...] a ladder. She was initially seen at [place] where she was found to have a right p ilon fracture and then transferred to [facility]. Per patient, she was trying to hang [...] Signed By: Oskar Austin MD Foot series 05/28/19 21:48:50 IMPRESSION: 1. Unchanged alignment of [...] Disposition: Pending OR in a.m. Please call [phone] with any questions or emergencies. Memo Goodman MD PGY2 MSO [phone] Pager #[phone] I, Alonso Ness, have examined the patient and agree with the above assessment and plan on 05/29/2019. Plan: to the OR for Ex fix R pilon, NPO, consent, IV abx, dvt prophylaxsis. Will need ORIF once soft tissues allow.
--- OUTSIDE RECORDS SUMMARY | 2019-06-05 15:19 | XMS REPORT ---
:1955 [facility] [address] [place] [address] Care Team Providers Name Role Phone Unavailable Unavailable Unavailable Problems This patient has no known problems. Allergies, Adverse Reactions, Alerts This patient has no known allergies or adverse reactions. Medications This patient has no known medications. Encounters Start End Encounter Admission Attending Care Care Encounter Date/Time Date/Time Type Type Clinicians Facility Department ID 2019-05-29 2019-05-28 Inpatient U [facility] MED [id number] 00:43:00 16:33:00
[2019-06-05] MEDS ORDERED: ONDANSETRON 4 MG/2 ML VIAL ONE (17:03)
[2019-06-05] MEDS ORDERED: CEFAZOLIN/SWI 1gm 1 GM/10 ML SYR ONE (17:03)
[2019-06-05] MEDS ORDERED: MUPIROCIN 2% OINT 22GM TUBE TOP ONE (17:03)
[2019-06-05] MEDS ORDERED: MORPHINE 4 MG/ML SYR ONE ×2 (17:03→20:00)
[2019-06-05] MEDS ORDERED: NA CHLORIDE 0.9% 1,000 ML ONE (17:03)
--- NOTE | 2019-06-05 17:04 | ER ---
Nurse's Notes [facility] Name: Dottie Cruz Age: 64 yrs Sex: Female : 1955 Arrival Date: 06/05/2019 Time: 15:27 Bed 27 Private MD: Diagnosis: Cellulitis and acute lymphangitis of other parts of limb;Impetigo;Pain in right lower leg-external fixator, comminuted distal ankle fracture Presentation: 06/05 15:30 Presenting complaint: Patient states: She has surgery for a compound ankle fracture aj1 with external pins placed last week at [facility]. She has had an increase in swelling to her right foot, it got so bad today that she had to take her splint off for relief, when she did she noticed that her foot felt cold and was way more swollen and bruised than it had been previously. Lg hematoma noted to ankle, edema noted to right foot. Bruising noted to right foot, right brar, and left brar. 16:04 Transition of care: patient was not received from another setting of care. Onset of aj symptoms was June 05, 2019. Risk Assessment: Do you want to hurt yourself or someone else? Patient reports no desire to harm self or others. Initial Sepsis Screen: Does the patient meet any 2 criteria? No. Patient's initial sepsis screen is negative. Does the patient have a suspected source of infection? Yes: Skin breakdown/wound. Care prior to arrival: None. 16:04 Method Of Arrival: EMS aj1 16:04 Acuity: YANG 3 aj1 Triage Assessment: 15:59 General: Appears in no apparent distress. uncomfortable, Behavior is calm, cooperative, aj1 appropriate for age. Pain: Complains of pain in right ankle Pain does not radiate. Pain currently is 10 out of 10 on a pain scale. EENT: No signs and/or symptoms were reported regarding the EENT system. Neuro: Level of Consciousness is awake, alert, obeys commands, Oriented to person, place, time, situation. Cardiovascular: Patient's skin is warm and dry. Respiratory: Airway is patent Respiratory effort is even, unlabored, Respiratory pattern is regular, symmetrical. GI: No signs and/or symptoms were reported involving the gastrointestinal system. : No signs and/or symptoms were reported regarding the genitourinary system. Derm: Bruising that is bright red, brown, green, yellow, on right ankle, right calf, right knee, right brar and lateral aspect of left calf. Musculoskeletal: Capillary refill < 3 seconds, in right toes. Range of motion: limited in right ankle Swelling present in right foot, right brar and anterior aspect of right ankle external pins located to right ankle. Historical: - Allergies: 15:59 No Known Allergies; aj1 - Home Meds: 15:59 Metoprolol Tartrate Oral [Active]; hydrocodone-acetaminophen 7.5-325 mg Oral tab twice aj1 a day [Active]; Robaxin Oral [Active]; Aspirin Oral [Active]; - PMHx: 15:59 Chronic pain; herniated disk; Hypertension; torn ACL; right ankle for compound fracture;aj1 - Immunization history:: Adult Immunizations up to date. - Ebola Screening: : Patient denies travel to an Ebola-affected area in the 21 days before illness onset. - Family history:: not pertinent. Screenin:03 Abuse screen: Denies threats or abuse. Denies injuries from another. Nutritional aj1 screening: No deficits noted. Tuberculosis screening: No symptoms or risk factors identified. 20:23 Fall Risk Fall in past 12 months (25 points). No secondary diagnosis (0 pts). IV access aj1 (20 points). Ambulatory Aid- None/Bed Rest/Nurse Assist (0 pts). Gait- Impaired (20 pts.). Mental Status- Oriented to own ability (0 pts). Total Carlisle Fall Scale indicates High Risk Score (45 or more points). Frequent Obs/Assessments Occuring. Assessment: 16:03 Reassessment: see triage assessment. aj1 17:00 Reassessment: Patient appears in no apparent distress at this time. No changes from aj1 previously documented assessment. Patient and/or family updated on plan of care and expected duration. Pain level reassessed. Patient is alert, oriented x 3, equal unlabored respirations, skin warm/dry/pink. 17:38 Reassessment: Pin insertion sites were cleaned with normal saline and then Bactroban aj1 applied per orders. 18:00 Reassessment: Patient and/or family updated on plan of care and expected duration. Pain aj1 level reassessed. General: Appears in no apparent distress. comfortable, Behavior is calm, cooperative, appropriate for age. Pain: Complains of pain in right leg Pain does not radiate. Neuro: Level of Consciousness is awake, alert, obeys commands, Oriented to person, place, time, situation. Cardiovascular: Patient's skin is warm and dry. Respiratory: Airway is patent Respiratory effort is even, unlabored, Respiratory pattern is regular, symmetrical. Derm: Bruising that is bright red, brown, green, yellow, on medial aspect of right calf and lateral aspect of right calf and right foot and right brar and right knee and right calf and lateral aspect of left calf Blister noted to right medial ankle. Musculoskeletal: Range of motion: limited in right ankle. 19:00 Reassessment: Patient appears in no apparent distress at this time. No changes from aj1 previously documented assessment. Patient and/or family updated on plan of care and expected duration. Pain level reassessed. Patient is alert, oriented x 3, equal unlabored respirations, skin warm/dry/pink. Vital Signs: 15:59 BP 128 / 73; Pulse 79; Resp 18; Temp 98.2; Pulse Ox 96% on R/A; Weight 65.77 kg (R); aj1 Height 5 ft. 0 in. (152.40 cm) (R); Pain 10/10; 16:56 BP 122 / 67; Pulse 73; Resp 18; Pulse Ox 99% on R/A; aj1 17:39 BP 148 / 73; Pulse 75; Resp 18; Pulse Ox 97% on R/A; aj1 18:30 BP 157 / 89; Pulse 85; Resp 18; Pulse Ox 100% on R/A; aj1 19:17 BP 140 / 77; Pulse 78; Resp 18; Pulse Ox 99% on R/A; aj1 15:59 Body Mass Index 28.32 (65.77 kg, 152.40 cm) aj1 ED Course: 15:27 Patient arrived in ED. aj1 15:35 Sai Díaz MD is Attending Physician. anselmo 15:52 Agatha Sharma, RN is Primary Nurse. aj1 15:59 Arm band placed on. aj1 16:03 Patient has correct armband on for positive identification. Bed in low position. aj1 16:03 No provider procedures requiring assistance completed. aj1 16:05 Triage completed. aj1 17:30 Inserted saline lock: 22 gauge in right antecubital area, using aseptic technique. aj1 Blood collected. 18:01 Warm blanket given. Pillow given. Verbal reassurance given. Pulse ox on. NIBP on. jp3 Assisted to bedside commode. 18:01 Patient maintains SpO2 saturation greater than 95% on room air. jp3 18:17 Diet: Patient given snack. Patient given juice. Patient given water. Tolerated well. jp3 20:22 Patient transferred, IV remains in place. aj1 Administered Medications: 17:37 Drug: morphine 4 mg {Note: RASS score - Patient is alert at this time.} Route: IVP; aj1 Site: right antecubital; 18:30 Follow up: Response: No adverse reaction; Pain is decreased; RASS: Alert and Calm (0) aj1 17:37 Drug: Zofran 4 mg Route: IVP; Site: right antecubital; aj1 18:30 Follow up: Response: No adverse reaction aj1 17:37 Drug: NS 0.9% 1000 ml Route: IV; Rate: 1 bolus; Site: right antecubital; aj1 18:30 Follow up: IV Status: Completed infusion; IV Intake: 1000ml aj1 17:37 Drug: Ancef 1 grams Route: IVPB; Site: right antecubital; aj1 20:28 Follow up: IV Status: Completed infusion; IV Intake: 10ml ; Given SIVP per hospital aj policy 17:38 Drug: Bactroban Ointment 2 % 1 application Route: Topical; Site: affected area; aj1 20:24 Follow up: Response: No adverse reaction aj1 20:15 Drug: morphine 4 mg {Note: RASS score 0- alert.} Route: IVP; Site: right antecubital; aj1 20:29 Follow up: Response: No adverse reaction; Pain is decreased; RASS: Alert and Calm (0) aj1 Intake: 18:30 IV: 1000ml; Total: 1000ml. aj1 20:28 IV: 10ml; Total: 1010ml. aj1 Outcome: 17:04 ER care complete, transfer ordered by . anselmo 20:31 Transferred by ground EMS to [facility]. aj1 20:31 Condition: stable 20:31 Discharge instructions given to patient, Instructed on the need for transfer, Demonstrated understanding of instructions. 20:31 Patient left the ED. aj1 Signatures: Agatha Sharma RN RN aj1 Sai Díaz MD MD cha Pisarski, Jacob jp3
--- NOTE | 2019-06-05 17:05 | EDPHYS ---
Physician Documentation [facility] Name: Dottie Cruz Age: 64 yrs Sex: Female : 1955 Arrival Date: 06/05/2019 Time: 15:27 Bed 27 Private MD: ED Physician Sai Díaz HPI: 06/05 16:56 This 64 yrs old Female presents to ER via EMS with complaints of right foot anselmo pain, swelling, erythema and drainage. 16:56 The patient presents with decreased range of motion, pain, swelling, tenderness. The anselmo complaints affect the right ankle, lateral aspect of right foot, right Achilles, right heel, medial aspect of right foot, right brar, anterior aspect of right ankle and dorsum of right foot. Context: The problem was sustained at home. Onset: The symptoms/episode began/occurred 3 day(s) ago. Modifying factors: The symptoms are alleviated by elevating leg, remaining still, the symptoms are aggravated by movement, weight bearing. The patient presents with decreased range of motion, pain, swelling, tenderness. Historical: - Allergies: 15:59 No Known Allergies; aj1 - Home Meds: 15:59 Metoprolol Tartrate Oral [Active]; hydrocodone-acetaminophen 7.5-325 mg Oral tab twice aj1 a day [Active]; Robaxin Oral [Active]; Aspirin Oral [Active]; - PMHx: 15:59 Chronic pain; herniated disk; Hypertension; torn ACL; right ankle for compound fracture;aj1 - Immunization history:: Adult Immunizations up to date. - Ebola Screening: : Patient denies travel to an Ebola-affected area in the 21 days before illness onset. - Family history:: not pertinent. ROS: 16:56 Constitutional: Negative for fever, chills, and weight loss, Eyes: Negative for injury, anselmo pain, redness, and discharge, ENT: Negative for injury, pain, and discharge, Neck: Negative for injury, pain, and swelling, Cardiovascular: Negative for chest pain, palpitations, and edema, Respiratory: Negative for shortness of breath, cough, wheezing, and pleuritic chest pain, Abdomen/GI: Negative for abdominal pain, nausea, vomiting, diarrhea, and constipation, Back: Negative for injury and pain, : Negative for injury, bleeding, discharge, and swelling, Neuro: Negative for headache, weakness, numbness, tingling, and seizure, Psych: Negative for depression, anxiety, suicide ideation, homicidal ideation, and hallucinations, Allergy/Immunology: Negative for hives, rash, and allergies, Endocrine: Negative for neck swelling, polydipsia, polyuria, polyphagia, and marked weight changes, Hematologic/Lymphatic: Negative for swollen nodes, abnormal bleeding, and unusual bruising. 16:56 MS/extremity: Positive for decreased range of motion, erythema, pain, swelling, tenderness, of the lateral aspect of right calf, right ankle, lateral aspect of right foot, right Achilles, right heel, medial aspect of right foot, right brar, anterior aspect of right ankle and dorsum of right foot. 16:56 Skin: Positive for cellulitis, of the lateral aspect of right calf, right ankle, lateral aspect of right foot, medial aspect of right calf, medial aspect of right foot, right brar, anterior aspect of right ankle and dorsum of right foot, impetigo. Exam: 16:56 Constitutional: This is a well developed, well nourished patient who is awake, alert, anselmo and in no acute distress. Head/Face: Normocephalic, atraumatic. Eyes: Pupils equal round and reactive to light, extra-ocular motions intact. Lids and lashes normal. Conjunctiva and sclera are non-icteric and not injected. Cornea within normal limits. Periorbital areas with no swelling, redness, or edema. ENT: Nares patent. No nasal discharge, no septal abnormalities noted. Tympanic membranes are normal and external auditory canals are clear. Oropharynx with no redness, swelling, or masses, exudates, or evidence of obstruction, uvula midline. Mucous membranes moist. Neck: Trachea midline, no thyromegaly or masses palpated, and no cervical lymphadenopathy. Supple, full range of motion without nuchal rigidity, or vertebral point tenderness. No Meningismus. Chest/axilla: Normal chest wall appearance and motion. Nontender with no deformity. No lesions are appreciated. Cardiovascular: Regular rate and rhythm with a normal S1 and S2. No gallops, murmurs, or rubs. Normal PMI, no JVD. No pulse deficits. Respiratory: Lungs have equal breath sounds bilaterally, clear to auscultation and percussion. No rales, rhonchi or wheezes noted. No increased work of breathing, no retractions or nasal flaring. Abdomen/GI: Soft, non-tender, with normal bowel sounds. No distension or tympany. No guarding or rebound. No evidence of tenderness throughout. Back: No spinal tenderness. No costovertebral tenderness. Full range of motion. Neuro: Awake and alert, GCS 15, oriented to person, place, time, and situation. Cranial nerves II-XII grossly intact. Motor strength 5/5 in all extremities. Sensory grossly intact. Cerebellar exam normal. Normal gait. Psych: Awake, alert, with orientation to person, place and time. Behavior, mood, and affect are within normal limits. 16:56 Musculoskeletal/extremity: Circulation is intact in all extremities. Sensation intact. Compartment Syndrome exam of affected extremity: is normal. Weight bearing: can bear weight with assistance only, uses walker, DVT Exam: negative Homans' sign noted on exam, no appreciated bluish discoloration, pain, swelling, tenderness, erythema, increased warmth. Vital Signs: 15:59 BP 128 / 73; Pulse 79; Resp 18; Temp 98.2; Pulse Ox 96% on R/A; Weight 65.77 kg (R); aj1 Height 5 ft. 0 in. (152.40 cm) (R); Pain 10/10; 16:56 BP 122 / 67; Pulse 73; Resp 18; Pulse Ox 99% on R/A; aj1 17:39 BP 148 / 73; Pulse 75; Resp 18; Pulse Ox 97% on R/A; aj1 18:30 BP 157 / 89; Pulse 85; Resp 18; Pulse Ox 100% on R/A; aj1 19:17 BP 140 / 77; Pulse 78; Resp 18; Pulse Ox 99% on R/A; aj1 15:59 Body Mass Index 28.32 (65.77 kg, 152.40 cm) aj MDM: 15:35 Patient medically screened. [facility] 17:01 Data reviewed: vital signs, nurses notes, lab test result(s). [facility] 06/05 16:55 Order name: CBC with Diff; Complete Time: 18:50 [facility] 06/05 16:55 Order name: Comprehensive Metabolic Panel; Complete Time: 18:50 [facility] 06/05 16:55 Order name: Wound Care; Complete Time: 17:39 [facility] 06/05 17:49 Order name: Diet Regular; Complete Time: 17:52 [facility] Administered Medications: 17:37 Drug: morphine 4 mg {Note: RASS score - Patient is alert at this time.} Route: IVP; aj Site: right antecubital; 18:30 Follow up: Response: No adverse reaction; Pain is decreased; RASS: Alert and Calm (0) [facility] 17:37 Drug: Zofran 4 mg Route: IVP; Site: right antecubital; aj 18:30 Follow up: Response: No adverse reaction [facility] 17:37 Drug: NS 0.9% 1000 ml Route: IV; Rate: 1 bolus; Site: right antecubital; aj 18:30 Follow up: IV Status: Completed infusion; IV Intake: 1000ml [facility] 17:37 Drug: Ancef 1 grams Route: IVPB; Site: right antecubital; [facility] 20:28 Follow up: IV Status: Completed infusion; IV Intake: 10ml ; Given SIVP per hospital [facility] policy 17:38 Drug: Bactroban Ointment 2 % 1 application Route: Topical; Site: affected area; [facility] 20:24 Follow up: Response: No adverse reaction [facility] 20:15 Drug: morphine 4 mg {Note: RASS score 0- alert.} Route: IVP; Site: right antecubital; [facility] 20:29 Follow up: Response: No adverse reaction; Pain is decreased; RASS: Alert and Calm (0) [facility] Disposition: 06/05/19 17:04 Transfer ordered to [facility]. Diagnosis are Cellulitis and acute lymphangitis of other parts of limb, Impetigo, Pain in right lower leg - external fixator, comminuted distal ankle fracture. - Reason for transfer: Higher level of care. - Accepting physician is to [place]. - Condition is Fair. - Problem is new. - Symptoms have improved. Signatures: Dispatcher [employer] Agatha Merida RN RN aj1 Sai Díaz MD MD cha Corrections: (The following items were deleted from the chart) 20:31 17:04 06/05/2019 17:04 Transfer ordered to [facility]. aj Diagnosis is Cellulitis and acute lymphangitis of other parts of limb; Impetigo; Pain in right lower leg - external fixator, comminuted distal ankle fracture. Reason for transfer: Higher level of care. Accepting physician is to [place]. Condition is Fair. Problem is new. Symptoms have improved. anselmo
[2019-06-05 17:33] LABS: Absolute Lymphocytes (CBC) 1.6 K/uL (0.7-4.9); Basophils % 0.8 % (0-1.3); Hematocrit 34.7 % (36.0-45.0); Lymphocytes % 18.1 % (15.3-44.8); MPV 8.7 fL (7.6-11.3)
[2019-06-05 17:50] LABS: ALT/SGPT 30 U/L (12-78); AST/SGOT 28 U/L (15-37); Albumin 3.7 g/dL (3.4-5.0); Alkaline Phosphatase 106 U/L (45-117); BUN Blood Urea Nitrogen 10 mg/dL (7-18); Bicarbonate 28 mmol/L (21-32); Bilirubin Total 0.4 mg/dL (0.2-1.0); Glucose Level 103 mg/dL (74-106); Potassium 3.6 mmol/L (3.5-5.1); Protein, Total 7.4 g/dL (6.4-8.2); Sodium Level 140 mmol/L (136-145)
== END 2019-06-05 20:31 | disposition short-term general hospital (02) ==
LOC: ER 15:15
DX: L03.115 Cellulitis of right lower limb (principal); I89.1 Lymphangitis; L01.00 Impetigo, unspecified; S82.891A Other fracture of right lower leg, initial encounter for closed fracture; Y92.009 Unspecified place in unspecified non-institutional (private) residence as the place of occurrence of the external cause; Z79.82 Long term (current) use of aspirin; I10 Essential (primary) hypertension
CPT/HCPCS: 96365; 85025; 36415; 80053; 96375; 99285; 96366; J0690; J7030; J2405

== ENCOUNTER 2019-08-13 19:37 | Emergency (ER) | payer OTHER ==
[2019-08-13] MEDS ORDERED: KETOROLAC 30 MG/ML INJ ONE (20:18)
[2019-08-13] MEDS ORDERED: NA CHLORIDE 0.9% 1,000 ML ONE (20:18)
[2019-08-13 20:41] LABS: Absolute Lymphocytes (CBC) 1.2 K/uL (0.7-4.9); Basophils % 0.5 % (0-1.3); Hematocrit 34.2 % (36.0-45.0); Lymphocytes % 13.9 % (15.3-44.8); MPV 9.3 fL (7.6-11.3); RBC Red Blood Cell Count 3.76 M/uL (3.86-4.86)
[2019-08-13 21:01] LABS: ALT/SGPT 85 U/L (12-78); AST/SGOT 97 U/L (15-37); Albumin 3.4 g/dL (3.4-5.0); Alkaline Phosphatase 121 U/L (45-117); BUN Blood Urea Nitrogen 13 mg/dL (7-18); Bicarbonate 26 mmol/L (21-32); Bilirubin Direct < 0.1 mg/dL (0-0.2); Bilirubin Total 0.3 mg/dL (0.2-1.0); Glucose Level 96 mg/dL (74-106); Lipase 96 U/L (73-393); Potassium 3.9 mmol/L (3.5-5.1); Protein, Total 6.4 g/dL (6.4-8.2); Sodium Level 141 mmol/L (136-145)
[2019-08-13] MEDS ORDERED: MORPHINE 4 MG/ML SYR ONE (22:16)
[2019-08-13] MEDS ORDERED: ONDANSETRON 4 MG/2 ML VIAL ONE (22:16)
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
[2019-08-13 23:30] VITALS: TEMP 97.9
[2019-08-13 23:31] VITALS: O2SAT 98
[2019-08-13 23:32] VITALS: BP 130/90
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
== END 2019-08-13 23:25 | disposition home or self-care (01) ==
LOC: ER 19:37
DX: S22.42XA Multiple fractures of ribs, left side, initial encounter for closed fracture (principal); S16.1XXA Strain of muscle, fascia and tendon at neck level, initial encounter; M25.552 Pain in left hip; R10.819 Abdominal tenderness, unspecified site; V43.52XA Car driver injured in collision with other type car in traffic accident, initial encounter; Y93.89 Activity, other specified; Y92.410 Unspecified street and highway as the place of occurrence of the external cause; F17.210 Nicotine dependence, cigarettes, uncomplicated
CPT/HCPCS: 96361; 85025; 80048; 36415; 86900; 86850; 86901; 80076; 83690; 70450; 72125; 71260; 74177; 72170; 73502; 96375; 96374; 99284; Q9967; J7030; J2405

== ENCOUNTER 2019-08-14 19:50 | Emergency (ER) | payer OTHER ==
[2019-08-14] MEDS ORDERED: HYDROCODONE/APAP 10/325 TAB ONE (20:45)
[2019-08-14] MEDS ORDERED: DIAZEPAM 5 MG TABLET ONE (20:45)
[2019-08-14] MEDS ORDERED: KETOROLAC 30 MG/ML INJ ONE (20:46)
[2019-08-14] MEDS ORDERED: FENTANYL 50 MCG/PATCH TD ONE (20:54)
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
[2019-08-14 22:22] LABS: Urine Blood TRACE (NEG); Urine Glucose NEGATIVE (NEG); Urine Protein NEGATIVE (NEG); Urine Specific Gravity 1.015 (1.005-1.030); Urine pH 7.5 (5.0-7.0)
[2019-08-14] MEDS ORDERED: AMOX/K CLAV 875 MG TAB ONE (22:26)
[2019-08-14 23:06] VITALS: TEMP 98.6
[2019-08-14 23:07] VITALS: BP 127/74; O2SAT 96
--- NOTE | 2019-08-15 09:28 | RAD REPORT ---
EXAM DESCRIPTION: RAD - Tib Fib Right - 08/14/2019 9:33 pm CLINICAL HISTORY: Right leg pain FINDINGS: Plates and screws affix a distal fibular and tibial fractures which are subacute. . No acute fracture is visualized. Bones are osteoporotic. No dislocation
--- NOTE | 2019-08-15 09:30 | RAD REPORT ---
EXAM DESCRIPTION: RAD - Ankle Right 3 View - 08/14/2019 9:31 pm CLINICAL HISTORY: Right ankle pain FINDINGS: Plates and screws affix a distal fibular and tibial fractures which are subacute. . No acute fracture is visualized. Bones are osteoporotic. No dislocation
== END 2019-08-14 22:56 | disposition home or self-care (01) ==
LOC: ER 19:50
DX: M25.571 Pain in right ankle and joints of right foot (principal); N39.0 Urinary tract infection, site not specified; I10 Essential (primary) hypertension; V89.2XXA Person injured in unspecified motor-vehicle accident, traffic, initial encounter
CPT/HCPCS: 81003; 87086; 87088; 96372; 99284

== ENCOUNTER 2019-08-20 12:59 | Emergency (ER) | payer OTHER, SELFPAY ==
[2019-08-20] MEDS ORDERED: ONDANSETRON 4 MG (ODT) TAB ONE (13:26)
[2019-08-20] MEDS ORDERED: MORPHINE 4 MG/ML SYR ONE (13:26)
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
[2019-08-20 13:58] VITALS: TEMP 98.2
[2019-08-20 13:59] VITALS: BP 168/89; O2SAT 99
== END 2019-08-20 13:53 | disposition home or self-care (01) ==
LOC: ER 12:59
DX: G89.29 Other chronic pain (principal); F17.210 Nicotine dependence, cigarettes, uncomplicated; I10 Essential (primary) hypertension; Z79.82 Long term (current) use of aspirin
CPT/HCPCS: 96372; 99283

== ENCOUNTER 2019-08-28 04:23 | Emergency (ER) | payer OTHER, SELFPAY ==
[2019-08-28] MEDS ORDERED: IPRATROPIUM BROM 0.5MG/2.5ML ONE (05:40)
[2019-08-28] MEDS ORDERED: ALBUTEROL 2.5 MG/3 ML NEB SOL ONE (05:40)
[2019-08-28] MEDS ORDERED: MORPHINE 2 MG/ML SYR ONE ×2 (05:40→07:03)
[2019-08-28] MEDS ORDERED: METHYLPREDNISOLONE 125 MG INJ ONE (05:40)
[2019-08-28] MEDS ORDERED: ONDANSETRON 4 MG/2 ML VIAL ONE (05:41)
[2019-08-28] MEDS ORDERED: NA CHLORIDE 0.9% 1,000 ML ONE (05:41)
[2019-08-28 05:53] LABS: Absolute Lymphocytes (CBC) 2.3 K/uL (0.7-4.9); Basophils % 0.7 % (0-1.3); Hematocrit 35.6 % (36.0-45.0); MPV 8.2 fL (7.6-11.3); Protime INR 0.96; RBC Red Blood Cell Count 4.03 M/uL (3.86-4.86)
[2019-08-28 06:10] LABS: ALT/SGPT 17 U/L (12-78); AST/SGOT 14 U/L (15-37); Albumin 3.9 g/dL (3.4-5.0); Alkaline Phosphatase 156 U/L (45-117); BUN Blood Urea Nitrogen 17 mg/dL (7-18); Bicarbonate 25 mmol/L (21-32); Bilirubin Direct < 0.1 mg/dL (0-0.2); Bilirubin Total 0.2 mg/dL (0.2-1.0); Glucose Level 97 mg/dL (74-106); Lipase 70 U/L (73-393); Magnesium 2.2 mg/dL (1.8-2.4); NT PRO-BNP 86 pg/mL (<125); Potassium 3.7 mmol/L (3.5-5.1); Protein, Total 6.9 g/dL (6.4-8.2); Sodium Level 138 mmol/L (136-145); Troponin (Emerg Dept Use Only) < 0.02 ng/mL (0.0-0.045)
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
[2019-08-28 07:35] VITALS: TEMP 97.9
[2019-08-28 07:36] VITALS: BP 168/90; O2SAT 95
[2019-08-28 07:36] LABS: Urine Blood TRACE (NEG); Urine Glucose NEGATIVE (NEG); Urine Protein NEGATIVE (NEG); Urine Specific Gravity <1.005 (1.005-1.030); Urine pH 6.5 (5.0-7.0)
--- NOTE | 2019-08-28 08:42 | EKG ---
Test Date: 2019-08-28 Test Time: 05:50:58 Product Inspection Supervisor: GAYLE MEASUREMENT RESULTS: Intervals: Rate: 73 TX: 154 QRSD: 92 QT: 386 QTc: 425 [place]: P: 66 TX: 154 QRS: 37 T: 36 INTERPRETIVE STATEMENTS: Normal sinus rhythm Normal ECG Compared to ECG 05/28/2019 13:29:11 Sinus bradycardia no longer present Electronically Signed On 08-28-19 08:42:04 CDT by Bienvenido Colon
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
== END 2019-08-28 07:28 | disposition home or self-care (01) ==
LOC: ER 04:23
DX: J44.9 Chronic obstructive pulmonary disease, unspecified (principal); J98.11 Atelectasis; M54.5 Low back pain; I10 Essential (primary) hypertension
CPT/HCPCS: 96361; 93005; 85025; 80048; 36415; 83735; 85610; 80076; 81003; 84484; 83690; 83880; 71046; 96375; 96374; 99284; J2270 ×2; J7030; J2930; J2405

== ENCOUNTER 2019-09-03 07:29 | Emergency (ER) | payer OTHER, SELFPAY ==
[2019-09-03] MEDS ORDERED: NA CHLORIDE 0.9% 500 ML ONE (08:37)
[2019-09-03] MEDS ORDERED: MORPHINE 2 MG/ML SYR ONE ×2 (08:37→09:44)
[2019-09-03] MEDS ORDERED: NA CHLORIDE 0.9% 1,000 ML ONE (08:37)
[2019-09-03] MEDS ORDERED: ONDANSETRON 4 MG/2 ML VIAL ONE (08:37)
[2019-09-03 08:55] LABS: Absolute Lymphocytes (CBC) 1.5 K/uL (0.7-4.9); Basophils % 0.9 % (0-1.3); Hematocrit 35.8 % (36.0-45.0); Lymphocytes % 18.1 % (15.3-44.8); MPV 8.6 fL (7.6-11.3); RBC Red Blood Cell Count 4.04 M/uL (3.86-4.86)
[2019-09-03 08:57] LABS: Protime INR 1.06
[2019-09-03] MEDS ORDERED: METHYLPREDNISOLONE 125 MG INJ ONE (09:04)
[2019-09-03] MEDS ORDERED: ALBUTEROL 2.5 MG/3 ML NEB SOL ONE (09:05)
[2019-09-03] MEDS ORDERED: IPRATROPIUM BROM 0.5MG/2.5ML ONE (09:05)
[2019-09-03 09:16] LABS: ALT/SGPT 17 U/L (12-78); AST/SGOT 12 U/L (15-37); Albumin 3.3 g/dL (3.4-5.0); Alkaline Phosphatase 132 U/L (45-117); BUN Blood Urea Nitrogen 14 mg/dL (7-18); Bicarbonate 25 mmol/L (21-32); Bilirubin Direct < 0.1 mg/dL (0-0.2); Bilirubin Total 0.2 mg/dL (0.2-1.0); Glucose Level 120 mg/dL (74-106); Lipase 101 U/L (73-393); Magnesium 2.1 mg/dL (1.8-2.4); NT PRO-BNP 154 pg/mL (<125); Potassium 3.5 mmol/L (3.5-5.1); Protein, Total 6.4 g/dL (6.4-8.2); Sodium Level 142 mmol/L (136-145); Troponin (Emerg Dept Use Only) < 0.02 ng/mL (0.0-0.045)
--- NOTE | 2019-09-03 09:26 | RAD REPORT ---
EXAM DESCRIPTION: RAD - Chest Single View - 09/03/2019 8:50 am CLINICAL HISTORY: Persistent left-sided chest and rib pain, known recent rib fractures COMPARISON: August 28, 2019 TECHNIQUE: AP portable chest image was obtained 0842 hours . FINDINGS: Left-sided lung volume is reduced relative to the right. Scarring or atelectasis changes p resent in the lower left lung field also similar to comparison. Heart and vasculature are normal. No pneumothorax is evident on portable examination. No measurable pleural fluid collection. Multiple mil dly displaced rib fractures are present. These do not appear to have changed from prior imaging. No a cute aortic findings suspected. IMPRESSION: Mildly displaced rib fracture pattern is not clearly different from August 28 imaging . Lung base atelectasis or scarring. No pneumothorax or pleural fluid collection.
--- NOTE | 2019-09-03 10:05 | RAD REPORT ---
EXAM DESCRIPTION: CT - Chest For Pe Angio - 09/03/2019 9:37 am CLINICAL HISTORY: CHEST PAIN CHEST PAIN , history of left-sided broken ribs 3 weeks earlier COMPARISON: CT chest May 28, 2019, portable chest September 03, 2019 TECHNIQUE: Dynamically enhanced 3 mm thick images of the chest were obtained during administration o f approximately 150mL Isovue 370 IV contrast. Coronal and oblique MIP reconstruction images were gene rated and reviewed. Exam utilizes a protocol to evaluate the pulmonary arterial tree. All CT scans are performed using dose optimization technique as appropriate and may include automated exposure control or mA/KV adjustment according to patient size. FINDINGS: No pulmonary emboli are identified. The aorta as imaged shows no acute or suspicious finding. No pericardial thickening or effusion. Lingula and left lower lobe base atelectasis changes are present. No pleural effusion or pleural thic kening. No pneumothorax is present. No mediastinal or hilar suspicious masses. No chest wall mass. Patient has nondisplaced fracture late ral third rib and minimally displaced fractures of the fourth- sixth ribs. Early callus formation is evident involving the third, fourth and sixth ribs. Overlying scapula in this region is intact. Humer al head degenerative spurring present without dislocation. No clavicle abnormality seen. No hematoma or mass in the soft tissues of the lateral left chest. IMPRESSION: Patient has a nondisplaced lateral left third rib fracture with mildly displaced lateral left fourth- sixth ribs. Early callus formation is present. Patient has left lung base atelectasis but no pneumothorax or pleural effusion. Aorta and pulmonary arterial tree enhance normally. No mediastinal abnormality. No other significant or suspicious findings.
--- NOTE | 2019-09-03 11:10 | EDPHYS ---
Physician Documentation [facility] Name: Dottie Cruz Age: 64 yrs Sex: Female : 1955 Arrival Date: 09/03/2019 Time: 07:30 Bed 8 Private MD: Dwight Gillespie T ED Physician Sai Díaz HPI: 09/03 08:42 This 64 yrs old Female presents to ER via Ambulatory with complaints of Rib anslemo pain. 08:42 The patient has shortness of breath at rest, with light activity. Onset: The anselmo symptoms/episode began/occurred 5 day(s) ago. Duration: The symptoms are continuous, and are steadily getting worse. The patient's shortness of breath has no apparent modifying factors. The patient or guardian reports cough, difficulty breathing. Modifying factors: The symptoms are alleviated by nothing. the symptoms are aggravated by activity. Associated signs and symptoms: The patient has no apparent associated signs or symptoms. Severity of symptoms: At their worst the symptoms were mild moderate in the emergency department the symptoms are unchanged. Associated signs and symptoms: The patient has no apparent associated signs or symptoms. Historical: - Allergies: 07:48 No Known Allergies; aa5 - PMHx: 07:48 Chronic pain; herniated disk; Hypertension; right ankle for compound fracture; torn ACL;aa5 - PSHx: 07:48 Leg surgery; aa5 - Immunization history:: Adult Immunizations up to date. - Ebola Screening: : No symptoms or risks identified at this time. - Family history:: not pertinent. - Social history:: Smoking status: Patient uses tobacco products, smokes one pack cigarettes per day. ROS: 08:42 Constitutional: Negative for fever, chills, and weight loss, Eyes: Negative for injury, anselmo pain, redness, and discharge, ENT: Negative for injury, pain, and discharge, Neck: Negative for injury, pain, and swelling, Cardiovascular: Negative for chest pain, palpitations, and edema, Abdomen/GI: Negative for abdominal pain, nausea, vomiting, diarrhea, and constipation, Back: Negative for injury and pain, : Negative for injury, bleeding, discharge, and swelling, MS/Extremity: Negative for injury and deformity, Skin: Negative for injury, rash, and discoloration, Neuro: Negative for headache, weakness, numbness, tingling, and seizure, Psych: Negative for depression, anxiety, suicide ideation, homicidal ideation, and hallucinations, Allergy/Immunology: Negative for hives, rash, and allergies, Endocrine: Negative for neck swelling, polydipsia, polyuria, polyphagia, and marked weight changes, Hematologic/Lymphatic: Negative for swollen nodes, abnormal bleeding, and unusual bruising. 08:42 Respiratory: Positive for cough, shortness of breath, wheezing, expiratory. Exam: 08:42 Constitutional: This is a well developed, well nourished patient who is awake, alert, anselmo and in no acute distress. Head/Face: Normocephalic, atraumatic. Eyes: Pupils equal round and reactive to light, extra-ocular motions intact. Lids and lashes normal. Conjunctiva and sclera are non-icteric and not injected. Cornea within normal limits. Periorbital areas with no swelling, redness, or edema. ENT: Nares patent. No nasal discharge, no septal abnormalities noted. Tympanic membranes are normal and external auditory canals are clear. Oropharynx with no redness, swelling, or masses, exudates, or evidence of obstruction, uvula midline. Mucous membranes moist. Neck: Trachea midline, no thyromegaly or masses palpated, and no cervical lymphadenopathy. Supple, full range of motion without nuchal rigidity, or vertebral point tenderness. No Meningismus. Chest/axilla: Normal chest wall appearance and motion. Nontender with no deformity. No lesions are appreciated. Cardiovascular: Regular rate and rhythm with a normal S1 and S2. No gallops, murmurs, or rubs. Normal PMI, no JVD. No pulse deficits. Abdomen/GI: Soft, non-tender, with normal bowel sounds. No distension or tympany. No guarding or rebound. No evidence of tenderness throughout. Back: No spinal tenderness. No costovertebral tenderness. Full range of motion. Female : Normal external genitalia. Skin: Warm, dry with normal turgor. Normal color with no rashes, no lesions, and no evidence of cellulitis. MS/ Extremity: Pulses equal, no cyanosis. Neurovascular intact. Full, normal range of motion. Neuro: Awake and alert, GCS 15, oriented to person, place, time, and situation. Cranial nerves II-XII grossly intact. Motor strength 5/5 in all extremities. Sensory grossly intact. Cerebellar exam normal. Normal gait. Psych: Awake, alert, with orientation to person, place and time. Behavior, mood, and affect are within normal limits. 08:42 Respiratory: the patient does not display signs of respiratory distress, Respirations: normal, Breath sounds: are clear throughout, rhonchi, that are mild, are scattered, stridor, is not appreciated, Respiratory rate: 18 Vital Signs: 07:40 BP 156 / 101; Pulse 79; Resp 18 S; Temp 97.0(TE); Pulse Ox 100% on R/A; Weight 63.5 kg aa5 (R); Height 5 ft. 0 in. (152.40 cm) (R); Pain 10/10; 09:00 BP 161 / 86; Pulse 60; Resp 17; Pulse Ox 100% ; bp 10:05 BP 157 / 81; Pulse 75; Resp 16; Pulse Ox 100% ; bp 11:29 BP 154 / 84; Pulse 63; Resp 17; Temp 97.5; Pulse Ox 95% ; bp 07:40 Body Mass Index 27.34 (63.50 kg, 152.40 cm) aa5 MDM: 07:40 Patient medically screened. [facility] 08:44 Data reviewed: vital signs, nurses notes, lab test result(s), EKG, radiologic studies, [facility] CT scan, plain films. 09/03 08:25 Order name: Basic Metabolic Panel; Complete Time: 11:08 [facility] 09/03 08:25 Order name: CBC with Diff; Complete Time: 11:08 [facility] 09/03 08:25 Order name: LFT's; Complete Time: 11:08 [facility] 09/03 08:25 Order name: Magnesium; Complete Time: 11:08 [facility] 09/03 08:25 Order name: NT PRO-BNP; Complete Time: 11: [facility] 09/03 08:25 Order name: PT-INR; Complete Time: 11: [facility] 09/03 08:25 Order name: Troponin (emerg Dept Use Only); Complete Time: 11:08 [facility] 09/03 08:25 Order name: XRAY Chest (1 view); Complete Time: 11:08 [facility] 09/03 08:25 Order name: CT Chest For PE Angio; Complete Time: 11:08 [facility] 09/03 08:25 Order name: Lipase; Complete Time: 11:08 [facility] 09/03 08:25 Order name: INCENTIVE SPIROMETRY [facility] 09/03 08:25 Order name: EKG; Complete Time: 08:27 [facility] 09/03 08:25 Order name: Cardiac monitoring; Complete Time: 08: [facility] 09/03 08:25 Order name: EKG - Nurse/Tech; Complete Time: 08:26 [facility] 09/03 08:25 Order name: IV Saline Lock; Complete Time: 08:58 [facility] 09/03 08:25 Order name: Labs collected and sent; Complete Time: 08:58 [facility] 09/03 08:25 Order name: O2 Per Protocol; Complete Time: 08: [facility] 09/03 08:25 Order name: O2 Sat Monitoring; Complete Time: 08: [facility] Administered Medications: 08:35 Drug: NS 0.9% 500 ml Route: IV; Rate: bolus; Site: right antecubital; bp 11:31 Follow up: IV Status: Completed infusion; IV Intake: 500ml bp 08:35 Drug: NS 0.9% 1000 ml Route: IV; Rate: 125 ml/hr; Site: right antecubital; bp 11:31 Follow up: IV Status: Completed infusion; IV Intake: 375ml bp 08:35 Drug: morphine 2 mg Route: IVP; Site: right antecubital; bp 08:35 Drug: Zofran 4 mg Route: IVP; Site: right antecubital; bp 09:08 Follow up: Response: No adverse reaction bp 09:05 Drug: SOLU-Medrol 125 mg Route: IVP; Site: right antecubital; bp 09:50 Follow up: Response: No adverse reaction bp 09:08 Not Given (Patient Refused): Albuterol - atroVENT (3:1) (2.5 mg - 0.5 mg) 3 ml bp Nebulizer once 09:50 Drug: morphine 2 mg Route: IVP; Site: right antecubital; bp 09:50 Follow up: Response: Pain is decreased bp Disposition: 09/03/19 11:09 Discharged to Home. Impression: Chest pain on breathing, Chronic obstructive pulmonary disease, unspecified, Tobacco abuse counseling, Tobacco use, Other chronic pain, Multiple fractures of ribs. - Condition is Stable. - Discharge Instructions: Nonspecific Chest Pain, Chronic Bronchitis, Chronic Pain, Costochondritis, Rib Fracture, Steps to Quit Smoking, Smoking Hazards, Costochondritis, [place]uk-do-Byry, Chronic Obstructive Pulmonary Disease Exacerbation, Nonspecific Chest Pain, Cskc-pk-Jott, Rib Fracture, Xyjq-mo-Ppul. - Prescriptions for Tylenol- Codeine #3 300-30 mg Oral Tablet - take 2 tablets by ORAL route every 6 hours As needed; 24 tablet. Zithromax Z- Flavio 250 mg Oral Tablet - take 1 tablet by ORAL route as directed for 5 days Day 1 - take two (2) tablets one time. Day 2, 3, 4 , 5 take one (1) tablet once daily.; 6 tablet. Medrol (Flavio) 4 mg Oral Tablets, Dose Pack - take 1 tablet by ORAL route as directed - follow package instructions; 1 packet. Albuterol Sulfate 90 mcg/actuation - inhale 1-2 puff by INHALATION route every 4-6 hours; 1 Inhaler. Ibuprofen 600 mg Oral Tablet - take 1 tablet by ORAL route every 8 hours As needed take with food; 21 tablet. - Medication Reconciliation Form, Thank You Letter, Antibiotic Education, Prescription Opioid Use form. - Follow up: Dwight Gillespie; When: 2 - 3 days; Reason: Recheck today's complaints, Continuance of care, Re-evaluation by your physician. Follow up: Tony Alejandro; When: 2 - 3 days; Reason: Recheck today's complaints, Continuance of care, Re-evaluation by your physician. - Problem is new. - Symptoms have improved. Signatures: Dispatcher [employer] EDMS Sai Díaz MD MD cha Calderon, Audri, RN RN aa5 Arias Cano RN RN bp Corrections: (The following items were deleted from the chart) 11:32 11:09 09/03/2019 11:09 Discharged to Home. Impression: Chest pain on breathing; Chronic bp obstructive pulmonary disease, unspecified; Tobacco abuse counseling; Tobacco use; Other chronic pain; Multiple fractures of ribs. Condition is Stable. Discharge Instructions: Nonspecific Chest Pain, Chronic Bronchitis, Chronic Pain, Costochondritis, Steps to Quit Smoking, Smoking Hazards, Costochondritis, [id number], Chronic Obstructive Pulmonary Disease Exacerbation, Nonspecific Chest Pain, Eirc-af-Ivbe, Rib Fracture, Rib Fracture, Qdrr-kk-Wziu. Prescriptions for Tylenol-Codeine #3 300-30 mg Oral Tablet - take 2 tablets by ORAL route every 6 hours As needed; 24 tablet, Zithromax Z-Flavio 250 mg Oral Tablet - take 1 tablet by ORAL route as directed for 5 days Day 1 - take two (2) tablets one time. Day 2, 3, 4 , 5 take one (1) tablet once daily.; 6 tablet, Medrol (Flavio) 4 mg Oral Tablets, Dose Pack - take 1 tablet by ORAL route as directed - follow package instructions; 1 packet, Albuterol Sulfate 90 mcg/actuation - inhale 1-2 puff by INHALATION route every 4-6 hours; 1 Inhaler. and Forms are Medication Reconciliation Form, Thank You Letter, Antibiotic Education, Prescription Opioid Use. Follow up: Dwight Gillespie; When: 2 - 3 days; Reason: Recheck today's complaints, Continuance of care, Re-evaluation by your physician. Follow up: Tony Alejandro; When: 2 - 3 days; Reason: Recheck today's complaints, Continuance of care, Re-evaluation by your physician. Problem is new. Symptoms have improved. anselmo
--- NOTE | 2019-09-03 11:10 | ER ---
Nurse's Notes [facility] Name: Dottie Cruz Age: 64 yrs Sex: Female : 1955 Arrival Date: 09/03/2019 Time: 07:30 Bed 8 Private MD: Dwight Gillespie T Diagnosis: Chest pain on breathing;Chronic obstructive pulmonary disease, unspecified;Tobacco abuse counseling;Tobacco use;Other chronic pain;Multiple fractures of ribs Presentation: 09/03 07:39 Presenting complaint: Patient states: "I was here about 3 weeks ago for some broken aa5 ribs to my left side and they are just hurting so bad and it's making it hard to breath". Pt states "I take hydrocodone but I didn't take any today". 07:39 Transition of care: patient was not received from another setting of care. Onset of aa5 symptoms was 2018. Risk Assessment: Do you want to hurt yourself or someone else? Patient reports no desire to harm self or others. Initial Sepsis Screen: Does the patient meet any 2 criteria? No. Patient's initial sepsis screen is negative. Does the patient have a suspected source of infection? No. Patient's initial sepsis screen is negative. Care prior to arrival: None. 07:39 Acuity: YANG 4 aa5 07:39 Method Of Arrival: Ambulatory aa5 Triage Assessment: 07:45 General: Appears in no apparent distress. comfortable, Behavior is cooperative, bp appropriate for age, anxious. Pain: Complains of pain in chest. EENT: No deficits noted. Neuro: No deficits noted. Cardiovascular: No deficits noted. Respiratory: Reports shortness of breath CHRONIC. GI: No signs and/or symptoms were reported involving the gastrointestinal system. : No signs and/or symptoms were reported regarding the genitourinary system. Derm: No deficits noted. Musculoskeletal: No deficits noted. Historical: - Allergies: 07:48 No Known Allergies; aa5 - PMHx: 07:48 Chronic pain; herniated disk; Hypertension; right ankle for compound fracture; torn ACL;aa5 - PSHx: 07:48 Leg surgery; aa5 - Immunization history:: Adult Immunizations up to date. - Ebola Screening: : No symptoms or risks identified at this time. - Family history:: not pertinent. - Social history:: Smoking status: Patient uses tobacco products, smokes one pack cigarettes per day. Screenin:56 Abuse screen: Denies threats or abuse. Denies injuries from another. Nutritional bp screening: No deficits noted. Tuberculosis screening: No symptoms or risk factors identified. Fall Risk None identified. Assessment: 07:56 General: SEE TRIAGE NOTE. bp 09:00 Reassessment: CT PENDING. bp 10:00 Reassessment: ALL CURRENT ORDERS COMPLETED, CT RESULTS PENDING. bp 11:30 Reassessment: PT D/C HOME AMBULATORY WITH WALKER. bp Vital Signs: 07:40 BP 156 / 101; Pulse 79; Resp 18 S; Temp 97.0(TE); Pulse Ox 100% on R/A; Weight 63.5 kg aa5 (R); Height 5 ft. 0 in. (152.40 cm) (R); Pain 10/10; 09:00 BP 161 / 86; Pulse 60; Resp 17; Pulse Ox 100% ; bp 10:05 BP 157 / 81; Pulse 75; Resp 16; Pulse Ox 100% ; bp 11:29 BP 154 / 84; Pulse 63; Resp 17; Temp 97.5; Pulse Ox 95% ; bp 07:40 Body Mass Index 27.34 (63.50 kg, 152.40 cm) aa5 ED Course: 07:30 Patient arrived in ED. mr 07:31 Dwight Gillespie MD is Private Physician. mr 07:39 Arm band placed on. aa5 07:39 Patient placed in an exam room, on a stretcher. aa5 07:40 Sai Díaz MD is Attending Physician. [facility] 07:41 Arias Cano, ANTONELLA is Primary Nurse. bp 07:47 Triage completed. aa5 07:53 EKG done, by sand technician. reviewed by Sai Díaz MD. sm3 07:56 Patient has correct armband on for positive identification. Bed in low position. Call bp light in reach. Side rails up X2. 08:00 Inserted saline lock: 20 gauge in right antecubital area, using aseptic technique. bp Blood collected. 08:41 Radiology exam delayed due to lab results not completed at this time. (BUN/Creatinine). 08:52 XRAY Chest (1 view) In Process Unspecified. EDMS 09:34 CT completed. Patient tolerated procedure well. Patient moved to CT via wheelchair. Patient moved back from CT. 09:40 CT Chest For PE Angio In Process Unspecified. EDMS 10:40 INCENTIVE SPIROMETRY Sent. bp 11:09 Dwight Gillespie MD is Referral Physician. anselmo 11:09 Tony Alejandro MD is Referral Physician. anselmo 11:30 No provider procedures requiring assistance completed. IV discontinued, intact, bp bleeding controlled, No redness/swelling at site. Pressure dressing applied. Administered Medications: 08:35 Drug: NS 0.9% 500 ml Route: IV; Rate: bolus; Site: right antecubital; bp 11:31 Follow up: IV Status: Completed infusion; IV Intake: 500ml bp 08:35 Drug: NS 0.9% 1000 ml Route: IV; Rate: 125 ml/hr; Site: right antecubital; bp 11:31 Follow up: IV Status: Completed infusion; IV Intake: 375ml bp 08:35 Drug: morphine 2 mg Route: IVP; Site: right antecubital; bp 08:35 Drug: Zofran 4 mg Route: IVP; Site: right antecubital; bp 09:08 Follow up: Response: No adverse reaction bp 09:05 Drug: SOLU-Medrol 125 mg Route: IVP; Site: right antecubital; bp 09:50 Follow up: Response: No adverse reaction bp 09:08 Not Given (Patient Refused): Albuterol - atroVENT (3:1) (2.5 mg - 0.5 mg) 3 ml bp Nebulizer once 09:50 Drug: morphine 2 mg Route: IVP; Site: right antecubital; bp 09:50 Follow up: Response: Pain is decreased bp Intake: 11:31 IV: 375ml; Total: 375ml. bp 11:31 IV: 500ml; Total: 875ml. bp Outcome: 11:09 Discharge ordered by . anselmo 11:30 Discharged to home ambulatory. bp 11:30 Condition: stable 11:32 Discharge instructions given to patient, Instructed on discharge instructions, follow bp up and referral plans. medication usage, Demonstrated understanding of instructions, follow-up care, medications, Prescriptions given X 4. 11:32 Patient left the ED. bp Signatures: Dispatcher [employer] EDMS Sai Díaz MD MD cha Rivera, Mary mr Calderon, Audri, RN RN aa5 Fernanda Palencia Brian, RN RN bp Veena Ricks sm3
[2019-09-03 11:48] VITALS: BP 154/84; TEMP 97.5; O2SAT 95
--- NOTE | 2019-09-05 12:51 | EKG ---
Test Date: 2019-09-03 Test Time: 07:52:28 Ceramics Instructor: RASHIDA MEASUREMENT RESULTS: Intervals: Rate: 78 [place]: 140 QRSD: 86 QT: 374 QTc: 426 [place]: P: 74 [place]: 140 QRS: 52 T: 49 INTERPRETIVE STATEMENTS: Normal sinus rhythm Normal ECG Compared to ECG 08/28/2019 05:50:58 No significant changes Electronically Signed On 09-05-19 12:45:59 SHROUD LINE TIER by Fawad Mauricio
--- OUTSIDE RECORDS SUMMARY | 2019-09-06 04:54 | XMS REPORT ---
:1955 [facility] Address [address] [place] [address] Care Team Providers Name Role Phone Unavailable Unavailable Unavailable Problems This patient has no known problems. Allergies, Adverse Reactions, Alerts This patient has no known allergies or adverse reactions. Medications This patient has no known medications. Encounters Start End Encounter Admission Attending Care Care Encounter Date/Time Date/Time Type Type Clinicians Facility Department ID 2019-06-23 2019-06-23 Outpatient E [facility] [id number] 16:53:00 16:53:00 2019-06-07 2019-06-06 [id number] 20:26:00 02:38:00 2019-05-29 2019-05-28 Inpatient [facility] MED [id number] 00:43:00 16:33:00
== END 2019-09-03 11:32 | disposition home or self-care (01) ==
LOC: ER 07:29
DX: J44.9 Chronic obstructive pulmonary disease, unspecified (principal); S22.49XA Multiple fractures of ribs, unspecified side, initial encounter for closed fracture; G89.29 Other chronic pain; Z72.0 Tobacco use; Z71.6 Tobacco abuse counseling
CPT/HCPCS: 36415; 71045; 71275; 80048; 80076; 83690; 83735; 83880; 84484; 85025; 85610; 93005; 96361; 96374; 96375; 99284; J2270; J2405; J2930; J7030; J7040; Q9967

== ENCOUNTER 2023-04-08 18:58 | Emergency (ER) | payer OTHER ==
--- OUTSIDE RECORDS SUMMARY | 2023-04-08 19:04 | XMS REPORT | Continuity of Care Document ---
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 05/29/19 1:51:00 CDT Melatonin 2019-0 No Notes: Memori a 05-29 (Same as: l 06:50: Melatonin) Ondansetron No Notes: Winston rodney 05-29 (Same as: l 06:50: Zofran) MEDICATION WASTE Product Size: 4 mg Product Wasted: ___ mg Acetaminoph No Notes: Do M emoria en 05-29 not exceed l 06:50: 4 gm/day. (Same as: Tylenol) Dextrose No 12.5 gm, Memor ia 50% Syringe 05-29 25 mL, l 06:50: Route: IVP, Drug Form: INJ, Dosing Weight 65.909, kg, PRN, PRN Blood Glucose Results, Start date: 05/29/19 1:50:00 CDT, Duration: 30 day, Stop date: 06/28/19 1:49:00 CDT, 0 Glucagon No 1 mg, Memoria 05-29 Route: IM, l 06:50: Drug form: PDR/INJ, PRN, Dosing Weight 65.909, kg, PRN Blood Glucose Results, Start date: 05/29/19 1:50:00 CDT, Duration: 30 day, Stop date: 06/28/19 1:49:00 CDT, 0 Tramadol No Notes: Not Mem oria 05-29 to exceed l 06:49: 400mg/day. (Same As: Ultram) Propofol No 120 mg, Memori a 05-29 Route: IV, l 06:30: ONCE, Dosing Weight 65.909, kg, Start date: 05/29/19 1:30:00 CDT, Stop date: 05/29/19 1:30:00 CDT Ketamine No 40 mg, Memoria 05-29 Route: IV, l 06:30: ONCE, Dosing Weight 65.909, kg, Start date: 05/29/19 1:30:00 CDT, Stop date: 05/29/19 1:30:00 CDT Ketamine 0 No Notes: Memoria 05-29 (Same as: l 05:11: keTALAR) Morphine 2019-0 No 4 mg, Memoria 8 Route: l 02:31: IVP, ONCE, Steve Dosing Weight 65.909, kg, Priority: STAT, Start date: 05/28/19 21:31:00 CDT, Stop date: 05/28/19 21:31:00 CDT Morphine 2019-0 No 4 mg, Memoria 05-29 Route: l 00:20: IVP, ONCE, Ayr Dosing Weight 65.909, kg, Priority: STAT, Start date: 05/28/19 19:20:00 CDT, Stop date: 05/28/19 19:20:00 CDT Vital Signs Vital Name Observation Time Observation Value Comments Source Respitory Rate 2019-11-17 20:38:00 Memori al Ayr Systolic (mm Hg) 2019-11-17 20:38:00 Winston rial Steve Diastolic (mm Hg) 2019-11-17 20:38:00 Mem orial Steve Respitory Rate 2019-11-17 20:30:00 Memori al Ayr Systolic (mm Hg) 2019-11-17 20:30:00 Winston rial Steve Diastolic (mm Hg) 2019-11-17 20:30:00 Mem orial Ayr Respitory Rate 2019-11-17 20:15:00 Memori al Steve Systolic (mm Hg) 2019-11-17 20:15:00 Winston rial Ayr Diastolic (mm Hg) 2019-11-17 20:15:00 Mem orial Ayr Height 2019-11-17 16:21:00 152.4 cm [facility] Ayr Weight 2019-11-17 16:21:00 [facility] Ayr BMI Calculated 2019-11-17 16:21:00 Memori al Ayr Heart Rate 2019-11-17 16:21:00 [facility] Ayr Height 2019-11-11 16:16:00 152.4 cm [facility] Ayr Weight 2019-11-11 16:16:00 [facility] Steve BMI Calculated 2019-11-11 16:16:00 Memori al Ayr Temperature Oral (F) 2019-06-25 17:56:00 98.4 F [facility] Steve Heart Rate 2019-06-25 17:56:00 [facility] Ayr Respitory Rate 2019-06-25 17:56:00 Memori al Steve Systolic (mm Hg) 2019-06-25 17:56:00 Winston rial Ayr Diastolic (mm Hg) 2019-06-25 17:56:00 Mem orial Steve Temperature Oral (F) 2019-06-25 13:34:00 98.2 F [facility] Steve Heart Rate 2019-06-25 13:34:00 [facility] Steve Respitory Rate 2019-06-25 13:34:00 Memori al Ayr Systolic (mm Hg) 2019-06-25 13:34:00 Winston rial Steve Diastolic (mm Hg) 2019-06-25 13:34:00 Mem orial Steve Temperature Oral (F) 2019-06-25 11:31:00 97.3 F [facility] Steve Heart Rate 2019-06-25 11:31:00 [facility] Ayr Systolic (mm Hg) 2019-06-25 11:31:00 Winston rial Steve Diastolic (mm Hg) 2019-06-25 11:31:00 Mem orial Steve Respitory Rate 2019-06-25 07:56:00 Memori al Ayr Height 2019-06-16 18:24:00 152.4 cm [facility] Ayr Weight 2019-06-16 18:24:00 [facility] Ayr BMI Calculated 2019-06-16 18:24:00 Memori al Steve Heart Rate 2019-06-09 16:13:00 [facility] Ayr Systolic (mm Hg) 2019-06-09 16:13:00 Winston rial Steve Diastolic (mm Hg) 2019-06-09 16:13:00 Mem orial Ayr Temperature Oral (F) 2019-06-09 13:18:00 98.1 F [facility] Ayr Heart Rate 2019-06-09 13:18:00 [facility] Ayr Respitory Rate 2019-06-09 13:18:00 Memori al Steve Systolic (mm Hg) 2019-06-09 13:18:00 Winston rial Steve Diastolic (mm Hg) 2019-06-09 13:18:00 Mem orial Ayr Temperature Oral (F) 2019-06-09 08:19:00 98 F [facility] Ayr Heart Rate 2019-06-09 08:19:00 [facility] Steve Respitory Rate 2019-06-09 08:19:00 Memori al Ayr Systolic (mm Hg) 2019-06-09 08:19:00 Winston rial Steve Diastolic (mm Hg) 2019-06-09 08:19:00 Mem orial Ayr Temperature Oral (F) 2019-06-09 04:24:00 98 F [facility] Ayr Respitory Rate 2019-06-09 04:24:00 Memori al Steve Height 2019-06-06 09:15:00 152.4 cm [facility] Ayr Weight 2019-06-06 09:15:00 [facility] Steve BMI Calculated 2019-06-06 09:15:00 Memori al Ayr Temperature Oral (F) 2019-05-30 16:57:00 98.2 F [facility] Ayr Heart Rate 2019-05-30 16:57:00 [facility] Ayr Systolic (mm Hg) 2019-05-30 16:57:00 Winston rial Steve Diastolic (mm Hg) 2019-05-30 16:57:00 Mem orial Steve Respitory Rate 2019-05-30 16:57:00 Memori al Ayr Respitory Rate 2019-05-30 12:34:00 Memori al Steve Heart Rate 2019-05-30 12:34:00 [facility] Steve Temperature Oral (F) 2019-05-30 12:34:00 97.7 F [facility] Ayr Systolic (mm Hg) 2019-05-30 12:34:00 Winston rial Steve Diastolic (mm Hg) 2019-05-30 12:34:00 Mem orial Steve Systolic (mm Hg) 2019-05-30 09:25:00 Winston rial Steve Diastolic (mm Hg) 2019-05-30 09:25:00 Mem orial Steve Temperature Oral (F) 2019-05-30 09:25:00 97.3 F [facility] Ayr Heart Rate 2019-05-30 09:25:00 [facility] Ayr Respitory Rate 2019-05-30 09:25:00 Memori al Steve Weight 2019-05-28 23:46:00 [facility] Ayr BMI Calculated 2019-05-28 23:46:00 Memori al Ayr Height 2019-05-28 23:46:00 152.4 cm [facility] Steve Procedures Procedure Date / Time Performed Performing Clinician Sourc e [U] XRAY ANKLE MIN 3 [facility]WS 2020-03-08 00:00:00 [facility] [id number] [U] XRAY ANKLE MIN 3 VWS 2020-02-18 00:00:00 [facility] [id number] [U] XRAY ANKLE MIN 3 [facility] 2019-11-24 00:00:00 [facility] [id number] [U] XRAY ANKLE MIN 3 [facility] 2019-10-28 00:00:00 [facility] [id number] [U] XRAY ANKLE MIN 3 [facility] 2019-08-06 00:00:00 [facility] [id number] [U] XRAY ANKLE MIN 3 [facility] 2019-07-14 00:00:00 [facility] [id number] [U] XRAY ANKLE MIN 3 [facility] 2019-06-29 00:00:00 [facility] [id number] [facility] Encounters Start End Encounter Admission Attending Care Care Encounter Source Date/Time Date/Time Type Type Clinicians Facility Department ID 2021-11-21 2021-11-21 Outpatient [facility]ERGUSON[facility]AD [facility] [id number] 06:31:00 06:31:00 HN [id number] da [facility] Outre h Program 2020-03-14 2020-03-14 AppointCHRISTIAN Patel [facility] [id number] [place] 11:15:00 11:15:00 t; Hayley AL Trauma Physi ci Hayley GONZALES [facility]ly [facility] 2020-02-29 2020-02-29 CHRISTIAN Garvey [facility] Orthopedics [id number] [place] 11:00:00 11:00:00 t; Hayley AL Trauma Physi ci Hayley GONZALES [facility]ly [facility] 2019-11-30 2019-11-30 AppointCHRISTIAN Patel [facility] Orthopedics [id number] [place] 11:00:00 11:00:00 t; Hayley AL Trauma Physi ci Hayley GONZALES [facility] 2019-11-17 2019-11-18 [facility] [id number] 15:36:00 05:59:[address] 2019-11-17 2019-11-17 Outpatient CHRISTIAN AL [facility] [id number] [facility] 09:36:00 23:59:00 2019-11-17 2019-11-17 Outpatient Christian Al [facility] [id number] 09:36:00 23:59:00 Jose 02 2019-11-17 2019-11-17 CHRISTIAN Garvey [facility] [id number] [place] 07:30:00 07:30:00 t; Hayley AL Physi ci Hayley GONZALES [facility] 2019-11-02 2019-11-02 CHRISTIAN Garvey [facility] [id number] [place] 11:00:00 11:00:00 t; Hayley AL Trauma Physi ci Hayley GONZALES [facility] 2019-08-17 2019-08-17 CHRISTIAN Garvey [facility] [id number] [place] 11:00:00 11:00:00 t; [place]ley AL Trauma Physi saritha GONZALES M.D. [facility]ly [facility] 2019-07-20 2019-07-20 CHRISTIAN Garvey [facility] [id number] [place] 10:45:00 10:45:00 t; Hayley AL Trauma Physi ci Hayley GONZALES [facility] 2019-07-06 2019-07-06 CHRISTIAN Garvey [facility] [id number] [place] 12:45:00 12:45:00 t; Hayley AL Trauma Physi sairtha GONZALES M.D. [facility]ly [facility] 2019-06-23 2019-06-25 [facility] [id number] Memoria 21:53:00 23:05:[address] 2019-06-23 2019-06-25 Outpatient Quinn [facility] [id number] 16:53:00 18:05:00 Kade Tomasz Huan 2019-06-23 2019-06-23 Outpatient E [address] 16:53:00 16:53:00 2019-06-23 2019-06-23 CHRISTIAN Garvey [facility] [id number] [place] 08:30:00 08:30:00 t; Hayley AL Physi ci Hayley GONZALES [facility] 2019-06-21 2019-06-21 CHRISTIAN Garvey [facility] [id number] [place] 07:30:00 07:30:00 t; Hayley AL Physi saritha GONZALES M.D. ans 2019-06-15 2019-06-15 Appointmen REBEL [facility] [id number] [place] 13:00:00 13:00:00 t; LIONEL LUQUE P.A. Physici gustavo FLOWERS P.AJose 2019-06-06 2019-06-09 Inpatient nullFlavo [facility] [id number] Memoria 02:11:19 16:36:00 r Ayr 01 [facility] 2019-06-05 2019-06-09 Outpatient Jayson [facility] [id number] 21:11:19 11:36:00 Arsha 01 Keith 2019-06-08 2019-06-08 Appointmen CHRISTIAN AL, [facility] [id number] [place] 14:00:00 14:00:00 t; Hayley AL Physi saritha GONZALES M.D. ans 2019-06-07 2019-06-06 Inpatient U [facility] [id number] [facility] 20:26:00 02:38:00 2019-05-28 2019-05-30 [facility] [id number] Memoria 23:46:00 20:00:00 r Ayr 14 [facility] 2019-05-28 2019-05-30 Outpatient Quinn [facility] [id number] 18:46:00 15:00:00 Kade Pressley 2019-05-29 2019-05-28 Inpatient U [facility] [id number] [facility] 00:43:00 16:33:00 Results Test Description Test Time Test Comments Results Result [facility] e Comments [U] XRAY ANKLE MIN 2019-11-02 [facility] 3 VWS RIGHT [id number] 10:57:00 acquired, not reported on this accession number. [U] XRAY ANKLE MIN 2019-07-20 [facility] 3 VWS RIGHT [id number] 10:53:00 acquired, not reported on this accession number. [facility] ENZYMES 2019-06-25 18:45:00 Test Item Value Reference Range Interpretation Comme nts Troponin-I (test code = no gt See_Comment [Au tomated message] The system Troponin-I) which generated this result transmitted ref erence range: <=0.40. The ref erence range was not used to interpr et this result as normal/abnormal . [facility] MZYFWTG7493-04-74 14:32:00 Test Item Value Reference Range Interpretation Comments Troponin-I (test code no gt See_Comment [Auto mated message] The = Troponin-I) system which g enerated this result transmit edith reference range : <=0.40. The reference r artur was not used to interpr et this result as kirk l/abnormal. [facility] CenterCbnurftPLFHWWAMUEYC2719-92-12 10:03:00 Test Item Value Reference Range Interpretation Comments Creatinine Lvl (test code = Creatinine 0.52 0.50-1.40 Lvl) [facility]SI7865[facility]34-59 10:03:00 Test Item Value Reference Range Interpretation Comments Sodium Lvl (test code = Sodium Lvl) 143 135-145 [facility] CenterWhulppvLOSCUYNFXKWQ4120-24-89 10:03:00 Test Item Value Reference Range Interpretation Comments Potassium Lvl (test code = Potassium 3.8 3.5-5.1 Lvl) [facility] CenterCjpbmdoRAFZUNFGHLRR5854-57-51 10:03:00 Test Item Value Reference Range Interpretation Comments Chloride Lvl (test code = Chloride Lvl) 109 95-109 [facility]LccsmudTICHESMAFPHY0002-26-73 10:03:00 Test Item Value Reference Range Interpretation Comments CO2 (test code = CO2) 25 24-32 [facility] CenterIsjbmmuQROSZEORLFVE8373-20-73 10:03:00 Test Item Value Reference Range Interpretation Comments Calcium Lvl (test code = Calcium Lvl) 8.1 8.5-10.5 [facility] HospitalWlxbspoWAROSDZBBWRT9676-50-18 10:03:00 Test Item Value Reference Range Interpretation Comments eGFR (test code = eGFR) 102 [facility] HospitalLacldhnRXWCCJKVKX7361-28-41 10:03:00 Test Item Value Reference Range Interpretation Comments WBC (test code = WBC) 5.2 3.7-10.4 [facility]ilip[facility]IDHGTXFSY9094-86-29 10:03:00 Test Item Value Reference Range Interpretation Comments RBC (test code = RBC) 2.79 4.20-5.40 [facility] CenterDfwupuhFGNKGCADUO1325-31-09 10:03:00 Test Item Value Reference Range Interpretation Comments Hgb (test code = Hgb) 9.1 12.0-16.0 [facility]DLB0495-21-34 10:03:00 Test Item Value Reference Range Interpretation Comments Hct (test code = Hct) 26.8 36.0-48.0 [facility] AllenDxslnhqEUDBWQAQBU6534-41-38 10:03:00 Test Item Value Reference Range Interpretation Comments MCV (test code = MCV) 95.8 80.0-98.0 [facility] AllenQvfmvqiUNPKNDBHED8778-43-69 10:03:00 Test Item Value Reference Range Interpretation Comments MCH (test code = MCH) 32.6 pg 27.0-31.0 [facility] AllenZopejrlCWLOXJDPPP4639-55-65 10:03:00 Test Item Value Reference Range Interpretation Comments MCHC (test code = MCHC) 34.0 32.0-36.0 [facility] AllenZnazfhiHBHYTGJXVT1650-53-15 10:03:00 Test Item Value Reference Range Interpretation Comments RDW (test code = RDW) 14.5 11.5-14.5 [facility] AllenGvfoahqEQHWOXEUXD6139-99-40 10:03:00 Test Item Value Reference Range Interpretation Comments Platelet (test code = Platelet) 207 133-450 [facility] AllenJkxedffLHUVUYDDYO7366-53-50 10:03:00 Test Item Value Reference Range Interpretation Comments MPV (test code = MPV) 8.6 7.4-10.4 [facility] AllenZegmivfHEVFVLBYEG9417-39-12 10:03:00 Test Item Value Reference Range Interpretation Comments Segs (test code = Segs) 48.7 45.0-75.0 [facility] AllenRkdaghqCVVVBSBQAF3747-24-94 10:03:00 Test Item Value Reference Range Interpretation Comments Lymphocytes (test code = Lymphocytes) 35.6 20.0-40.0 [facility] AllenJjdygcsNLHDDKPKSY6969-40-27 10:03:00 Test Item Value Reference Range Interpretation Comments Monocytes (test code = Monocytes) 11.4 2.0-12.0 [facility] AllenGjsxjhiVXODVZBRBE8009-92-97 10:03:00 Test Item Value Reference Range Interpretation Comments Eosinophils (test code = 3.5 See_Comment [A utomated message] The Eosinophils) system which ge nerated this result tra nsmitted reference range : <=4.0. The reference r artur was not used to int erpret this result as normal/abnormal . [facility] AllenRyzuizxLAVDRYOITD2084-79-55 10:03:00 Test Item Value Reference Range Interpretation Comments Basophils (test code = 0.8 See_Comment [Aut omated message] The Basophils) system which ge nerated this result tra nsmitted reference range : <=1.0. The reference r artur was not used to int erpret this result as normal/abnormal . [facility] AllenZesnbkdRGPHBSCMZH3984-96-32 10:03:00 Test Item Value Reference Range Interpretation Comments Neutrophils # (test code = Neutrophils 2.5 1.5-8.1 #) [facility] AllenLwbsuztNAGCFGZGTI1462-54-39 10:03:00 Test Item Value Reference Range Interpretation Comments Lymphocytes # (test code = Lymphocytes 1.8 1.0-5.5 #) [facility] AllenElhsdmiCIGWZBOTKF4687-98-04 10:03:00 Test Item Value Reference Range Interpretation Comments Monocytes # (test code 0.6 See_Comment [Aut omated message] The = Monocytes #) system which generated this result tra nsmitted reference range : <=0.8. The reference r artur was not used to int erpret this result as normal/abnormal . [facility] AllenEvefhgjAUUOPUIBHI1552-97-77 10:03:00 Test Item Value Reference Range Interpretation Comments Eosinophils # (test code 0.2 See_Comment [A utomated message] The = Eosinophils #) system whic h generated this result tra nsmitted reference range : <=0.5. The reference r artur was not used to int erpret this result as normal/abnormal . [facility]NveqhvzMLRTVCGJYLGN6755-52-80 10:03:00 Test Item Value Reference Range Interpretation Comments AGAP (test code = AGAP) 12.8 10.0-20.0 [facility] JacksonKdjvsiwSYRQWTEOWNLE8659-95-57 10:03:00 Test Item Value Reference Range Interpretation Comments Glucose Lvl (test code = Glucose Lvl) 91 70- [facility] JacksonWlzzxgdQOKWGFLNUMYV1126-45-30 10:03:00 Test Item Value Reference Range Interpretation Comments BUN (test code = BUN) 17 7-22 [facility]2019-08-29 05:37:00 Test Item Value Reference Range Interpretation Comments Glucose Lvl (test code = Glucose Lvl) 113 70-99 [facility]2019-08-29 05:37:00 Test Item Value Reference Range Interpretation Comments BUN (test code = BUN) 19 7-22 [facility]2019-08-29 05:37:00 Test Item Value Reference Range Interpretation Comments Creatinine Lvl (test code = Creatinine 0.63 0.50-1.40 Lvl) [facility]2019-08-29 05:37:00 Test Item Value Reference Range Interpretation Comments Sodium Lvl (test code = Sodium Lvl) 142 135-145 [facility]2019-08-29 05:37:00 Test Item Value Reference Range Interpretation Comments Potassium Lvl (test code = Potassium 4.0 3.5-5.1 Lvl) [facility]2019-08-29 05:37:00 Test Item Value Reference Range Interpretation Comments Chloride Lvl (test code = Chloride Lvl) 106 95-109 [facility]2019-08-29 05:37:00 Test Item Value Reference Range Interpretation Comments CO2 (test code = CO2) 24 24-32 [facility]2019-08-29 05:37:00 Test Item Value Reference Range Interpretation Comments Calcium Lvl (test code = Calcium Lvl) 8.3 8.5-10.5 [facility]2019-08-29 05:37:00 Test Item Value Reference Range Interpretation Comments AGAP (test code = AGAP) 16.0 10.0-20.0 [facility]2019-08-29 05:37:00 Test Item Value Reference Range Interpretation Comments eGFR (test code = eGFR) 96 [facility]GayfuefFXLLBKRHQN9782-83-07 05:37:00 Test Item Value Reference Range Interpretation Comments Segs (test code = Segs) 79.4 45.0-75.0 [facility] AllenJgkdappRMQVJWXUSS4287-45-10 05:37:00 Test Item Value Reference Range Interpretation Comments Lymphocytes (test code = Lymphocytes) 12.2 20.0-40.0 [facility] AllenCgvvfczFKTHLSMFOT6065-46-71 05:37:00 Test Item Value Reference Range Interpretation Comments Monocytes (test code = Monocytes) 8.0 2.0-12.0 [facility] AllenTmopvcmJAJFIWICUJ4729-37-20 05:37:00 Test Item Value Reference Range Interpretation Comments Eosinophils (test code = 0.1 See_Comment [A utomated message] The Eosinophils) system which ge nerated this result tra nsmitted reference range : <=4.0. The reference r artur was not used to int erpret this result as normal/abnormal . [facility] AllenRauzmlkGNCLVBFMKE4568-28-83 05:37:00 Test Item Value Reference Range Interpretation Comments Basophils (test code = 0.3 See_Comment [Aut omated message] The Basophils) system which ge nerated this result tra nsmitted reference range : <=1.0. The reference r artur was not used to int erpret this result as normal/abnormal . [facility] AllenGmljrguIQSCKHTLZC1741-25-52 05:37:00 Test Item Value Reference Range Interpretation Comments Neutrophils # (test code = Neutrophils 8.1 1.5-8.1 #) [facility] AllenFvqdnpoVAEDHVLYJN7000-05-77 05:37:00 Test Item Value Reference Range Interpretation Comments Lymphocytes # (test code = Lymphocytes 1.2 1.0-5.5 #) [facility] AllenHrbhlwbHIPVBODCCB6002-86-09 05:37:00 Test Item Value Reference Range Interpretation Comments Monocytes # (test code 0.8 See_Comment [Aut omated message] The = Monocytes #) system which generated this result tra nsmitted reference range : <=0.8. The reference r artur was not used to int erpret this result as normal/abnormal . [facility] AllenJtcsfawAAEOHBMPZC3614-92-69 05:37:00 Test Item Value Reference Range Interpretation Comments WBC (test code = WBC) 10.1 3.7-10.4 [facility] AllenWqvkvcmFVCOKEGHUD8392-11-22 05:37:00 Test Item Value Reference Range Interpretation Comments RBC (test code = RBC) 3.20 4.20-5.40 [facility] AllenLpaiyjnXOCOCPVIBK5000-24-54 05:37:00 Test Item Value Reference Range Interpretation Comments Hgb (test code = Hgb) 10.4 12.0-16.0 [facility] AllenAbevmrmKADMQXPGTJ6603-53-89 05:37:00 Test Item Value Reference Range Interpretation Comments Hct (test code = Hct) 30.5 36.0-48.0 [facility] AllenBwjrtbwENOFZZVPQN1584-14-72 05:37:00 Test Item Value Reference Range Interpretation Comments MCV (test code = MCV) 95.5 80.0-98.0 [facility] AllenOzftmyxMVPGAOLNQM7021-12-95 05:37:00 Test Item Value Reference Range Interpretation Comments MCH (test code = MCH) 32.4 pg 27.0-31.0 [facility] AllenBjcnlepWJDYHWTAEZ7924-97-95 05:37:00 Test Item Value Reference Range Interpretation Comments MCHC (test code = MCHC) 34.0 32.0-36.0 [facility] AllenYboivamJFTVCYYDIK9948-30-75 05:37:00 Test Item Value Reference Range Interpretation Comments RDW (test code = RDW) 14.9 11.5-14.5 [facility] AllenHvqmwklKGFANJBBDJ8235-70-89 05:37:00 Test Item Value Reference Range Interpretation Comments Platelet (test code = Platelet) 334 133-450 [facility] AllenDvdkbmgPMADFWMGKG4755-27-73 05:37:00 Test Item Value Reference Range Interpretation Comments MPV (test code = MPV) 9.2 7.4-10.4 [facility][U] XRAY ANKLE MIN 3 VWS RIGHT [id number] 13:10:00Images acquired, not reported on this accession number[facility] 13:36:00 Test Item Value Reference Range Interpretation Comments Glucose Lvl (test code = Glucose Lvl) 129 70-99 [facility]2019-08-11 13:36:00 Test Item Value Reference Range Interpretation Comments BUN (test code = BUN) 11 7-22 [facility]2019-08-11 13:36:00 Test Item Value Reference Range Interpretation Comments Creatinine Lvl (test code = Creatinine 0.58 0.50-1.40 Lvl) [facility]2019-08-11 13:36:00 Test Item Value Reference Range Interpretation Comments Sodium Lvl (test code = Sodium Lvl) 141 135-145 [facility]2019-08-11 13:36:00 Test Item Value Reference Range Interpretation Comments Potassium Lvl (test code = Potassium 3.6 3.5-5.1 Lvl) [facility]2019-08-11 13:36:00 Test Item Value Reference Range Interpretation Comments Chloride Lvl (test code = Chloride Lvl) 107 95-109 [facility]2019-08-11 13:36:00 Test Item Value Reference Range Interpretation Comments CO2 (test code = CO2) 25 24-32 [facility]2019-08-11 13:36:00 Test Item Value Reference Range Interpretation Comments Calcium Lvl (test code = Calcium Lvl) 8.5 8.5-10.5 [facility]2019-08-11 13:36:00 Test Item Value Reference Range Interpretation Comments AGAP (test code = AGAP) 12.6 10.0-20.0 [facility]2019-08-11 13:36:00 Test Item Value Reference Range Interpretation Comments eGFR (test code = eGFR) 98 [facility]2019-08-11 03:31:00 Test Item Value Reference Range Interpretation Comments Glucose Lvl (test code = Glucose Lvl) 119 70-99 [facility]2019-08-11 03:31:00 Test Item Value Reference Range Interpretation Comments BUN (test code = BUN) 12 7-22 [facility]2019-08-11 03:31:00 Test Item Value Reference Range Interpretation Comments Creatinine Lvl (test code = Creatinine 0.60 0.50-1.40 Lvl) [facility]2019-08-11 03:31:00 Test Item Value Reference Range Interpretation Comments Sodium Lvl (test code = Sodium Lvl) 144 135-145 [facility]2019-08-11 03:31:00 Test Item Value Reference Range Interpretation Comments Potassium Lvl (test code = Potassium 3.9 3.5-5.1 Lvl) [facility]2019-08-11 03:31:00 Test Item Value Reference Range Interpretation Comments Chloride Lvl (test code = Chloride Lvl) 113 95-109 [facility]2019-08-11 03:31:00 Test Item Value Reference Range Interpretation Comments CO2 (test code = CO2) 19 24-32 [facility]2019-08-11 03:31:00 Test Item Value Reference Range Interpretation Comments Calcium Lvl (test code = Calcium Lvl) 8.7 8.5-10.5 [facility]2019-08-11 03:31:00 Test Item Value Reference Range Interpretation Comments eGFR (test code = eGFR) 97 [facility]2019-08-11 03:31:00 Test Item Value Reference Range Interpretation Comments AGAP (test code = AGAP) 15.9 10.0-20.0 [facility]QL[facility]48[facility] 03:31:00 Test Item Value Reference Range Interpretation Comments WBC (test code = WBC) 7.1 3.7-10.4 [facility]WxfedqpGXCCHQVYML9991-29-13 03:31:00 Test Item Value Reference Range Interpretation Comments RBC (test code = RBC) 3.48 4.20-5.40 [facility]NmojpyxBJRXBBOUWO1440-37-38 03:31:00 Test Item Value Reference Range Interpretation Comments Hgb (test code = Hgb) 11.2 12.0-16.0 [facility] AllenAwbbrobDGVORZXDHP7964-08-45 03:31:00 Test Item Value Reference Range Interpretation Comments Hct (test code = Hct) 33.9 36.0-48.0 [facility] AllenDptpwouFVAVRNMZXA9333-80-99 03:31:00 Test Item Value Reference Range Interpretation Comments MCV (test code = MCV) 97.4 80.0-98.0 [facility] AllenHotnsmaOPFSKBPZHV5074-21-04 03:31:00 Test Item Value Reference Range Interpretation Comments MCH (test code = MCH) 32.2 pg 27.0-31.0 [facility]PggeikpDSRTDQJWQZ8930-58-44 03:31:00 Test Item Value Reference Range Interpretation Comments MCHC (test code = MCHC) 33.0 32.0-36.0 [facility] AllenQqihuhzYUSZWNPPEV0931-86-54 03:31:00 Test Item Value Reference Range Interpretation Comments RDW (test code = RDW) 14.8 11.5-14.5 [facility] AllenBdensxcONLJXZTYOE9900-58-35 03:31:00 Test Item Value Reference Range Interpretation Comments Platelet (test code = Platelet) 325 133-450 [facility] AllenKqzyckeOLLZXPHHUT9389-16-35 03:31:00 Test Item Value Reference Range Interpretation Comments MPV (test code = MPV) 8.4 7.4-10.4 [facility] AllenFfylbnxIMBAIEIOTD8639-14-71 03:31:00 Test Item Value Reference Range Interpretation Comments Sed Rate (test code = 35 See_Comment [Auto mated message] The Sed Rate) system which ge nerated this result transmit edith reference range : <=20. The reference range was not used to interpr et this result as kirk l/abnormal. [facility] AllenZlzrorhGODUUPEXMF2595-89-41 03:31:00 Test Item Value Reference Range Interpretation Comments Segs (test code = Segs) 63.6 45.0-75.0 [facility] AllenJxlvvwhIMKBGVJLIW5890-85-80 03:31:00 Test Item Value Reference Range Interpretation Comments Lymphocytes (test code = Lymphocytes) 25.6 20.0-40.0 [facility] AllenDhainrqLYJXFNKTVM8935-45-98 03:31:00 Test Item Value Reference Range Interpretation Comments Monocytes (test code = Monocytes) 7.8 2.0-12.0 [facility] AllenNhpgquhFSYTOOCZNO5575-85-98 03:31:00 Test Item Value Reference Range Interpretation Comments Eosinophils (test code = 2.3 See_Comment [A utomated message] The Eosinophils) system which ge nerated this result tra nsmitted reference range : <=4.0. The reference r artur was not used to int erpret this result as normal/abnormal . [facility] AllenPhpyqgrQQAYERXQQP8884-85-76 03:31:00 Test Item Value Reference Range Interpretation Comments Basophils (test code = 0.7 See_Comment [Aut omated message] The Basophils) system which ge nerated this result tra nsmitted reference range : <=1.0. The reference r artur was not used to int erpret this result as normal/abnormal . [facility] AllenGxmcaflCMVKCOEEOU0332-64-20 03:31:00 Test Item Value Reference Range Interpretation Comments Neutrophils # (test code = Neutrophils 4.5 1.5-8.1 #) [facility] AllenHzejxamFDPMJKUYEK3924-02-88 03:31:00 Test Item Value Reference Range Interpretation Comments Lymphocytes # (test code = Lymphocytes 1.8 1.0-5.5 #) [facility] AllenHgmicofFTKSNZGWLO8376-17-58 03:31:00 Test Item Value Reference Range Interpretation Comments Monocytes # (test code 0.6 See_Comment [Aut omated message] The = Monocytes #) system which generated this result tra nsmitted reference range : <=0.8. The reference r artur was not used to int erpret this result as normal/abnormal . [facility] AllenOtjpdqiLTFUSPGTVB7477-72-97 03:31:00 Test Item Value Reference Range Interpretation Comments Eosinophils # (test code 0.2 See_Comment [A utomated message] The = Eosinophils #) system whic h generated this result tra nsmitted reference range : <=0.5. The reference r artur was not used to int erpret this result as normal/abnormal . [facility]UyjtnwpZOPOPJDFSR4667-29-13 03:31:00 Test Item Value Reference Range Interpretation Comments Basophils # (test code 0.1 See_Comment [Aut omated message] The = Basophils #) system which generated this result tra nsmitted reference range : <=0.2. The reference r artur was not used to int erpret this result as normal/abnormal . [facility] HospitalQjvwzmqTSTNZNKBOK8893-36-89 03:31:00 Test Item Value Reference Range Interpretation Comments CRP, High Sensitivity (test code = CRP, 37.0 High Sensitivity) [facility] HospitalQzoriemWBAHJFWIGR1537-79-59 03:31:00 Test Item Value Reference Range Interpretation Comments [facility] HIV 4th GEN (test Negative *NA*(06/05/19 code = [facility] HIV 4th 10:31 PM) GEN) [facility]rldahrBBFOGSAJVBRU0983-27-13 09:04:00 Test Item Value Reference Range Interpretation Comments AGAP (test code = AGAP) 12.7 10.0-20.0 [facility]PgblhwfBHJZGRQVSKBK2644-05-22 09:04:00 Test Item Value Reference Range Interpretation Comments eGFR (test code = eGFR) 96 [facility] JacksonRkgjwkcIYKLEMTCAHID8327-94-37 09:04:00 Test Item Value Reference Range Interpretation Comments CO2 (test code = CO2) 24 24-32 [facility] JacksonFptsejjAVAADZBQFKEX2267-66-66 09:04:00 Test Item Value Reference Range Interpretation Comments Chloride Lvl (test code = Chloride Lvl) 107 95-109 [facility] JacksonLxdfgwgNAAMIVVUAJTU7675-28-43 09:04:00 Test Item Value Reference Range Interpretation Comments Potassium Lvl (test code = Potassium 3.7 3.5-5.1 Lvl) [facility]VqdnlxvTRCUJEUWERWX0235-05-56 09:04:00 Test Item Value Reference Range Interpretation Comments Sodium Lvl (test code = Sodium Lvl) 140 135-145 [facility] JacksonBatfxbwIBIAFXNFIRPR1349-89-20 09:04:00 Test Item Value Reference Range Interpretation Comments Calcium Lvl (test code = Calcium Lvl) 8.5 8.5-10.5 [facility] JacksonWszuabjBVTTKJCEZQMC2848-31-17 09:04:00 Test Item Value Reference Range Interpretation Comments Glucose Lvl (test code = Glucose Lvl) 94 70-99 [facility] JacksonVjhzqkhWBAVNSNYXBKG9906-62-40 09:04:00 Test Item Value Reference Range Interpretation Comments Creatinine Lvl (test code = Creatinine 0.63 0.50-1.40 Lvl) [facility] JacksonSkhrxozAZCGFQUUGHQH2464-57-51 09:04:00 Test Item Value Reference Range Interpretation Comments BUN (test code = BUN) 12 7-22 [facility]JxzqhdcYXRBVFIESG5907-82-83 09:04:00 Test Item Value Reference Range Interpretation Comments Basophils (test code = 0.3 See_Comment [Aut omated message] The Basophils) system which ge nerated this result tra nsmitted reference range : <=1.0. The reference r artur was not used to int erpret this result as normal/abnormal . [facility] AllenFoixhamIVKHJFYRPX7215-54-32 09:04:00 Test Item Value Reference Range Interpretation Comments Eosinophils (test code = 0.4 See_Comment [A utomated message] The Eosinophils) system which ge nerated this result tra nsmitted reference range : <=4.0. The reference r artur was not used to int erpret this result as normal/abnormal . [facility] AllenMtvuszlIOQQQJBSRB2638-20-10 09:04:00 Test Item Value Reference Range Interpretation Comments Neutrophils # (test code = Neutrophils 6.2 1.5-8.1 #) [facility] AllenSefcsgnXYKDLGDINA2328-52-28 09:04:00 Test Item Value Reference Range Interpretation Comments Monocytes # (test code 0.6 See_Comment [Aut omated message] The = Monocytes #) system which generated this result tra nsmitted reference range : <=0.8. The reference r artur was not used to int erpret this result as normal/abnormal . [facility] AllenAulsrkeKBRBNQSKXL1461-14-90 09:04:00 Test Item Value Reference Range Interpretation Comments Lymphocytes # (test code = Lymphocytes 1.7 1.0-5.5 #) [facility] AllenBvijgorGQXOAWNBJK0912-46-20 09:04:00 Test Item Value Reference Range Interpretation Comments Segs (test code = Segs) 72.0 45.0-75.0 [facility] AllenEzkirgsCOEYUXMGSN0326-67-03 09:04:00 Test Item Value Reference Range Interpretation Comments Lymphocytes (test code = Lymphocytes) 19.7 20.0-40.0 [facility] AllenRainyqlMAPBBHDUHM4888-04-76 09:04:00 Test Item Value Reference Range Interpretation Comments Monocytes (test code = Monocytes) 7.6 2.0-12.0 [facility] AllenWsyarhaNFLDBGPAPS8667-25-35 09:04:00 Test Item Value Reference Range Interpretation Comments Platelet (test code = Platelet) 189 133-450 [facility] AllenYhokknqJHUITIHYJB1144-93-97 09:04:00 Test Item Value Reference Range Interpretation Comments MPV (test code = MPV) 9.8 7.4-10.4 [facility] AllenIdavaozIBQOHIUSSE1681-82-14 09:04:00 Test Item Value Reference Range Interpretation Comments MCH (test code = MCH) 32.7 pg 27.0-31.0 [facility] AllenHndxwazQQOAKVOJZT8726-11-31 09:04:00 Test Item Value Reference Range Interpretation Comments MCV (test code = MCV) 95.9 80.0-98.0 [facility] AllenZlihnrkFNROBPCRJP2254-32-90 09:04:00 Test Item Value Reference Range Interpretation Comments RDW (test code = RDW) 14.1 11.5-14.5 [facility] AllenHadwbmqOWNTTILDVP6858-83-65 09:04:00 Test Item Value Reference Range Interpretation Comments MCHC (test code = MCHC) 34.1 32.0-36.0 [facility] AllenDuuptetYNYHIAOKWW3756-93-35 09:04:00 Test Item Value Reference Range Interpretation Comments WBC (test code = WBC) 8.6 3.7-10.4 [facility] AllenRmwtumoOOERNYMWEN3399-34-62 09:04:00 Test Item Value Reference Range Interpretation Comments Hgb (test code = Hgb) 10.7 12.0-16.0 [facility] AllenTkmnxixLPXXMFQVTM5991-44-88 09:04:00 Test Item Value Reference Range Interpretation Comments RBC (test code = RBC) 3.28 4.20-5.40 [facility] AllenWuyvwezHRQRRTNAHF6056-39-59 09:04:00 Test Item Value Reference Range Interpretation Comments Hct (test code = Hct) 31.4 36.0-48.0 [facility]2019-08-03 08:47:00 Test Item Value Reference Range Interpretation Comments eGFR (test code = eGFR) 97 [facility] TWGQM3057-15-94 08:47:00 Test Item Value Reference Range Interpretation Comments Calcium Lvl (test code = Calcium Lvl) 7.9 8.5-10.5 [facility]2019-08-03 08:47:00 Test Item Value Reference Range Interpretation Comments CO2 (test code = CO2) 23 24-32 [facility]2019-08-03 08:47:00 Test Item Value Reference Range Interpretation Comments Chloride Lvl (test code = Chloride Lvl) 107 95-109 [facility]2019-08-03 08:47:00 Test Item Value Reference Range Interpretation Comments BUN (test code = BUN) 15 7-22 [facility]2019-08-03 08:47:00 Test Item Value Reference Range Interpretation Comments Creatinine Lvl (test code = Creatinine 0.60 0.50-1.40 Lvl) [facility]2019-08-03 08:47:00 Test Item Value Reference Range Interpretation Comments Sodium Lvl (test code = Sodium Lvl) 141 135-145 [facility]2019-08-03 08:47:00 Test Item Value Reference Range Interpretation Comments Potassium Lvl (test code = Potassium 3.5 3.5-5.1 Lvl) [facility]2019-08-03 08:47:00 Test Item Value Reference Range Interpretation Comments Glucose Lvl (test code = Glucose Lvl) 94 70-99 [facility]2019-08-03 08:47:00 Test Item Value Reference Range Interpretation Comments AGAP (test code = AGAP) 14.5 10.0-20.0 [facility] AllenKlumgfqVAMPRJVOHE1888-70-89 08:47:00 Test Item Value Reference Range Interpretation Comments MCHC (test code = MCHC) 34.0 32.0-36.0 [facility] AllenYtbmmlqCCLAFLPVIQ8410-76-95 08:47:00 Test Item Value Reference Range Interpretation Comments RDW (test code = RDW) 14.6 11.5-14.5 [facility] AllenZcccasfIPHMPHOVXX9459-11-39 08:47:00 Test Item Value Reference Range Interpretation Comments Platelet (test code = Platelet) 201 133-450 [facility] AllenAutbqtsVPHBDVZMRC9120-52-69 08:47:00 Test Item Value Reference Range Interpretation Comments MPV (test code = MPV) 9.6 7.4-10.4 [facility] AllenFgzymmsGQDXFKLGIT9366-19-23 08:47:00 Test Item Value Reference Range Interpretation Comments WBC (test code = WBC) 10.0 3.7-10.4 [facility] AllenMkqirnnQYXZKPXMJJ5391-57-45 08:47:00 Test Item Value Reference Range Interpretation Comments RBC (test code = RBC) 3.47 4.20-5.40 [facility] AllenRsubjfpUVNLKJIVIY1643-81-78 08:47:00 Test Item Value Reference Range Interpretation Comments Hgb (test code = Hgb) 11.4 12.0-16.0 [facility] AllenPhjmnzdSNWTMLWOOL5121-12-41 08:47:00 Test Item Value Reference Range Interpretation Comments Hct (test code = Hct) 33.4 36.0-48.0 [facility] AllenYzmmybeLUAWXKJBCH0664-27-41 08:47:00 Test Item Value Reference Range Interpretation Comments MCV (test code = MCV) 96.3 80.0-98.0 [facility] AllenQypruuaWPIWPJWIJT2961-19-35 08:47:00 Test Item Value Reference Range Interpretation Comments MCH (test code = MCH) 32.7 pg 27.0-31.0 [facility] AllenRmbhhpzJIKTWQTTVX4986-97-47 08:47:00 Test Item Value Reference Range Interpretation Comments INR (test code = INR) 1.04 1 0.85-1.17 [facility] AllenCkzkfenYUGDLDXGBV2915-21-55 08:47:00 Test Item Value Reference Range Interpretation Comments PTT (test code = PTT) 33.9 s 22.9-35.8 [facility] AllenMnkrgpfOMAQRMUUJF7357-21-12 08:47:00 Test Item Value Reference Range Interpretation Comments PT (test code = PT) 13.4 s 12.0-14.7 [facility] AllenZjypfqvNDRRNOFGIP9803-85-47 08:47:00 Test Item Value Reference Range Interpretation Comments Neutrophils # (test code = Neutrophils 8.0 1.5-8.1 #) [facility] AllenUfkcthbNKKULKLPYK0973-51-68 08:47:00 Test Item Value Reference Range Interpretation Comments Lymphocytes # (test code = Lymphocytes 1.2 1.0-5.5 #) [facility] AllenIwxdiczMWAJKMASYY7648-90-95 08:47:00 Test Item Value Reference Range Interpretation Comments Monocytes # (test code 0.8 See_Comment [Aut omated message] The = Monocytes #) system which generated this result tra nsmitted reference range : <=0.8. The reference r artur was not used to int erpret this result as normal/abnormal . [facility] AllenOkysqknWQBTTWOGSU3942-24-56 08:47:00 Test Item Value Reference Range Interpretation Comments Segs (test code = Segs) 79.5 45.0-75.0 [facility] AllenSzotpkfGWOJBCILEN2431-18-18 08:47:00 Test Item Value Reference Range Interpretation Comments Monocytes (test code = Monocytes) 7.5 2.0-12.0 [facility] AllenFkdisieYTHCNOWRXI0344-23-57 08:47:00 Test Item Value Reference Range Interpretation Comments Basophils (test code = 0.3 See_Comment [Aut omated message] The Basophils) system which ge nerated this result tra nsmitted reference range : <=1.0. The reference r artur was not used to int erpret this result as normal/abnormal . [facility] AllenScjhmrxIYTEYOFVFQ9359-52-38 08:47:00 Test Item Value Reference Range Interpretation Comments Lymphocytes (test code = Lymphocytes) 12.3 20.0-40.0 [facility] AllenYphxtrmOMHAFXNFTM2264-12-74 08:47:00 Test Item Value Reference Range Interpretation Comments Eosinophils (test code = 0.4 See_Comment [A utomated message] The Eosinophils) system which ge nerated this result tra nsmitted reference range : <=4.0. The reference r artur was not used to int erpret this result as normal/abnormal . [facility] HospitalUnocoin [facility] WJMIOKF9593-62-05 02:33:00 Test Item Value Reference Range Interpretation Comments Antibody Scrn (test Negative (05/28/19 9:33 code = Antibody Scrn) PM) [facility] Center[facility] [id number] 02:33:00 Test Item Value Reference Range Interpretation Comments ABO/Rh (test code = ABO/Rh) O POS [facility] CenterDialMy[facility] [id number] 01:29:00 Test Item Value Reference Range Interpretation Comments Calcium Lvl (test code = Calcium Lvl) 8.9 8.5-10.5 [facility] Center[facility] RETLI9167-40-42 01:29:00 Test Item Value Reference Range Interpretation Comments CO2 (test code = CO2) 25 24-32 [facility] [id number] 01:29:00 Test Item Value Reference Range Interpretation Comments AGAP (test code = AGAP) 14.2 10.0-20.0 [facility]2019-08-03 01:29:00 Test Item Value Reference Range Interpretation Comments eGFR (test code = eGFR) 96 [facility]2019-08-03 01:29:00 Test Item Value Reference Range Interpretation Comments Glucose Lvl (test code = Glucose Lvl) 102 70-99 [facility]2019-08-03 01:29:00 Test Item Value Reference Range Interpretation Comments Sodium Lvl (test code = Sodium Lvl) 140 135-145 [facility]2019-08-03 01:29:00 Test Item Value Reference Range Interpretation Comments Potassium Lvl (test code = Potassium 4.2 3.5-5.1 Lvl) [facility]2019-08-03 01:29:00 Test Item Value Reference Range Interpretation Comments Creatinine Lvl (test code = Creatinine 0.62 0.50-1.40 Lvl) [facility]2019-08-03 01:29:00 Test Item Value Reference Range Interpretation Comments Chloride Lvl (test code = Chloride Lvl) 105 95-109 [facility]2019-08-03 01:29:00 Test Item Value Reference Range Interpretation Comments BUN (test code = BUN) 14 7-22 [facility] AllenLgkklcvGFAPYXDVIE3685-23-96 01:03:00 Test Item Value Reference Range Interpretation Comments Monocytes # (test code 0.8 See_Comment [Aut omated message] The = Monocytes #) system which generated this result tra nsmitted reference range : <=0.8. The reference r artur was not used to int erpret this result as normal/abnormal . [facility] AllenWcvygppZNMFPHKYPY0912-25-47 01:03:00 Test Item Value Reference Range Interpretation Comments Eosinophils # (test code 0.1 See_Comment [A utomated message] The = Eosinophils #) system whic h generated this result tra nsmitted reference range : <=0.5. The reference r artur was not used to int erpret this result as normal/abnormal . [facility] AllenQtsmwwcSDSMOARMLJ0639-76-77 01:03:00 Test Item Value Reference Range Interpretation Comments Basophils # (test code 0.1 See_Comment [Aut omated message] The = Basophils #) system which generated this result tra nsmitted reference range : <=0.2. The reference r artur was not used to int erpret this result as normal/abnormal . [facility] AllenXxanbvwOGYTGNSYRW5039-47-65 01:03:00 Test Item Value Reference Range Interpretation Comments Lymphocytes # (test code = Lymphocytes 1.1 1.0-5.5 #) [facility] AllenIholpfsIVVBKUDRHL2506-59-39 01:03:00 Test Item Value Reference Range Interpretation Comments Monocytes (test code = Monocytes) 6.3 2.0-12.0 [facility] AllenVnwagldKHZYJKSTAG8216-36-82 01:03:00 Test Item Value Reference Range Interpretation Comments Lymphocytes (test code = Lymphocytes) 8.7 20.0-40.0 [facility] AllenMpldnmbRQJZUHGZND0703-17-69 01:03:00 Test Item Value Reference Range Interpretation Comments Neutrophils # (test code = Neutrophils 10.9 1.5-8.1 #) [facility] AllenKbnhqyhAXEQBUZIYO8017-98-96 01:03:00 Test Item Value Reference Range Interpretation Comments Basophils (test code = 0.6 See_Comment [Aut omated message] The Basophils) system which ge nerated this result tra nsmitted reference range : <=1.0. The reference r artur was not used to int erpret this result as normal/abnormal . [facility] AllenShxgyepLRZMROICID3692-57-57 01:03:00 Test Item Value Reference Range Interpretation Comments Eosinophils (test code = 0.6 See_Comment [A utomated message] The Eosinophils) system which ge nerated this result tra nsmitted reference range : <=4.0. The reference r artur was not used to int erpret this result as normal/abnormal . [facility] AllenCejqcwfFGKDSCBSOI9024-80-52 01:03:00 Test Item Value Reference Range Interpretation Comments Segs (test code = Segs) 83.8 45.0-75.0 [facility] AllenXdvsfyqTJWREWWWKV2455-75-95 01:03:00 Test Item Value Reference Range Interpretation Comments PTT (test code = PTT) 30.3 s 22.9-35.8 [facility] AllenKpoydnuKGDGRPMNUZ9688-97-45 01:03:00 Test Item Value Reference Range Interpretation Comments PT (test code = PT) 12.6 s 12.0-14.7 [place] 061889-08-03 01:03:00 Test Item Value Reference Range Interpretation Comments INR (test code = INR) 0.96 1 0.85-1.17 [facility] AllenEdzrzpjEDSFIVSYOB4320-94-20 01:03:00 Test Item Value Reference Range Interpretation Comments MCHC (test code = MCHC) 33.5 32.0-36.0 [facility] AllenMdhaixxBSKLXGWYRK3898-87-57 01:03:00 Test Item Value Reference Range Interpretation Comments RBC (test code = RBC) 4.10 4.20-5.40 [facility] AllenIievhhpZKJHDVZKYJ7453-18-58 01:03:00 Test Item Value Reference Range Interpretation Comments Hgb (test code = Hgb) 13.3 12.0-16.0 [facility] AllenQkznxbfLNJBNBGIRB5304-82-59 01:03:00 Test Item Value Reference Range Interpretation Comments Hct (test code = Hct) 39.7 36.0-48.0 [facility] AllenAdsvedwNHITQVIWLJ1494-10-99 01:03:00 Test Item Value Reference Range Interpretation Comments MCV (test code = MCV) 96.8 80.0-98.0 [facility] AllenTippfpkTUVUMAASWA5134-76-79 01:03:00 Test Item Value Reference Range Interpretation Comments MCH (test code = MCH) 32.4 pg 27.0-31.0 [facility] AllenXxtobchWSTEHBOXDK0906-02-73 01:03:00 Test Item Value Reference Range Interpretation Comments WBC (test code = WBC) 13.0 3.7-10.4 [facility] AllenAchhqtyBMLREOTXIB7264-78-00 01:03:00 Test Item Value Reference Range Interpretation Comments MPV (test code = MPV) 9.5 7.4-10.4 [facility] AllenPfrhepnFKZMFZYCUN5751-15-91 01:03:00 Test Item Value Reference Range Interpretation Comments Platelet (test code = Platelet) 235 133-450 [facility] AllenUtaeyjyMWLOMSLCOL5783-15-03 01:03:00 Test Item Value Reference Range Interpretation Comments RDW (test code = RDW) 14.6 11.5-14.5 [facility] Notes Date/Time Note Provider Source 2019-06-25 EXAM: XR CHEST [facility] 08:15:00-00:00 DATE: 06/25/2019 8:15 CDT Center INDICATION: - cp. TECHNIQUE: Chest 1 view FINDINGS: Comparison is made to 05/28/2019. Cardiomediastinal silhouette is unchanged. Bibasilar subsegmental atelectasis. No pleural effusions. IMPRESSION: Bibasilar subsegmental atelectasis. 2019-06-23 EXAM: XR RIGHT ANKLE 2 VIEWS [facility] 13:02:00-00:00 DATE: 06/23/2019 13:02 CDT Center INDICATION: Status post internal fixation COMPARISON: Radiograph dated June 12, 2019 TECHNIQUE: AP and lateral radiographs of the ank le FINDINGS: Status post ORIF w ith partial plate and screws inserted across the distal laterally as well as single screw through the medial malleolus and intramedullary graciela in the distal fibula are showing adequate alignment without hardware complicatio n. No soft tissue abnormality is identified. IMPRESSION: Adequate alignment of the di stal tibia and fibular fractures as well as medial malleolus fracture status post ORIF. 2019-06-05 EXAM: XR RIGHT TIBIA-FIBULA 2 VIEWS [facility] 22:32:00-00:00 EXAM: XR RIGHT ANKLE 3 VIEWS [facility] EXAM: XR RIGHT FOOT 3 VIEWS DATE: 06/05/2019 22:32 CDT INDICATION: - pain s/p trauma COMPARISON: Right ankle radiographs from 05/29/2019, CT ankle from 05/29/2019. [place] SECTION: ER TECHNIQUE: 2 views of the ti nellie-fibula, 3 views of the ankle, 3 views of the foot. FINDINGS: No significant interval lezama ge in the comminuted distal tibial pilon fracture with a predominantly coronally oriented fracture lines at the articular surface when compared with CT ankle from 05/29/2019. Unchanged comminuted distal fibular shaft fracture and tiny fractures of the lateral process of the talus. Nondisplaced fibular neck fracture is seen. Chronic appearing deformity of the great toe proximal phalanx head. Circumferential soft tissue swelling of the ankle again noted. Soft tissue deformity seen on the medial aspect of the ankle which may be correlated clinically for soft tissue wound. External fixation pi ns are again noted through the calcaneus and tib ia. IMPRESSION: 1. Grossly unchanged comminu edith distal tibial pilon fracture, comminuted distal fibular shaft fracture, and tiny fractures of the lateral process of the talus. 2. Nondisplaced fibular neck fracture. 3. Soft tissue deformity on the medial aspect of the ankle to be correlated clinically for soft tissue wound. Circumferential ankle and distal leg swelling. 2019-06-05 EXAM: XR RIGHT TIBIA-FIBULA 2 VIEWS [facility] 22:32:00-00:00 EXAM: XR RIGHT ANKLE [address] EXAM: XR RIGHT FOOT 3 VIEWS DATE: 06/05/2019 22:32 CDT INDICATION: - pain s/p trauma COMPARISON: Right ankle radiographs from 05/29/2019, CT ankle from 05/29/2019. [place] SECTION: ER TECHNIQUE: 2 views of the ti nellie-fibula, 3 views of the ankle, 3 views of the foot. FINDINGS: No significant interval lezama ge in the comminuted distal tibial pilon fracture with a predominantly coronally oriented fracture lines at the articular surface when compared with CT ankle from 05/29/2019. Unchanged comminuted distal fibular shaft fracture and tiny fractures of the lateral process of the talus. Nondisplaced fibular neck fracture is seen. Chronic appearing deformity of the great toe proximal phalanx head. Circumferential soft tissue swelling of the ankle again noted. Soft tissue deformity seen on the medial aspect of the ankle which may be correlated clinically for soft tissue wound. External fixation pi ns are again noted through the calcaneus and tib ia. IMPRESSION: 1. Grossly unchanged comminu edith distal tibial pilon fracture, comminuted distal fibular shaft fracture, and tiny fractures of the lateral process of the talus. 2. Nondisplaced fibular neck fracture. 3. Soft tissue deformity on the medial aspect of the ankle to be correlated clinically for soft tissue wound. Circumferential ankle and distal leg swelling. 2019-06-05 EXAM: XR RIGHT TIBIA-FIBULA 2 VIEWS [facility] 22:31:00-00:00 EXAM: XR RIGHT ANKLE [address] EXAM: XR RIGHT FOOT 3 VIEWS DATE: 06/05/2019 22:32 CDT INDICATION: - pain s/p trauma COMPARISON: Right ankle radiographs from 05/29/2019, CT ankle from 05/29/2019. [place] SECTION: ER TECHNIQUE: 2 views of the ti nellie-fibula, 3 views of the ankle, 3 views of the foot. FINDINGS: No significant interval lezama ge in the comminuted distal tibial pilon fracture with a predominantly coronally oriented fracture lines at the articular surface when compared with CT ankle from 05/29/2019. Unchanged comminuted distal fibular shaft fracture and tiny fractures of the lateral process of the talus. Nondisplaced fibular neck fracture is seen. Chronic appearing deformity of the great toe proximal phalanx head. Circumferential soft tissue swelling of the ankle again noted. Soft tissue deformity seen on the medial aspect of the ankle which may be correlated clinically for soft tissue wound. External fixation pi ns are again noted through the calcaneus and tib ia. IMPRESSION: 1. Grossly unchanged comminu edith distal tibial pilon fracture, comminuted distal fibular shaft fracture, and tiny fractures of the lateral process of the talus. 2. Nondisplaced fibular neck fracture. 3. Soft tissue deformity on the medial aspect of the ankle to be correlated clinically for soft tissue wound. Circumferential ankle and distal leg swelling. 2019-05-29 EXAM: CT RIGHT ANKLE WITHOUT CONTRAST [facility] 08:16:00-00:00 DATE: 05/29/2019 at 19:05 hours Ce nter INDICATION: - post op, preop planning COMPARISON: [...] ent, with tiny intra-articular fragments up to 0 .2cm. Distal fibula: Comminuted di stal tibial shaft fracture above the syndesmosis remains mildly displaced. Talus: Tiny fractures are present at the lateral aspect of the talus. Calcaneus: External fixation pin without complic ation. No fracture. Navicular: Intact. Cuboid: Intact. Cuneiforms: Intact. Visualized metatarsals: Intact. Soft tissues: Circumferentia l soft tissue swelling is present with small blisters medially. No radiopaque foreign body or subcutaneous emphysema. No pneumarthrosis. IMPRESSION: 1. Comminuted distal tibial pilon fracture with predominantly coronally oriented fracture lines at the articular surface, up to 0.2cm offset and small, 0.2cm intra-articular fragments. 2. Comminuted distal fibular shaft fracture and tiny fractures of the lateral process of the talus. 2019-05-29 EXAM: RIGHT Ankle 3 views DX [facility] 01:26:00-00:00 DATE: 05/29/2019 1:30 CDT Center INDICATION: - s/p splint ADDITIONAL INFORMATION: Status post fall from a ladder. COMPARISON: Right ankle 05/28/2019 at 1303 hours and 2106 hours. TECHNIQUE: AP, oblique and lateral views of the right ankle. FINDINGS: The underlying bon e and soft tissue detail is obscured due to the overlying splint/cast. There has been slight improv ement in alignment of the tibial shaft with respect to the distal tibia at the comminuted fracture of the distal metaphysis with relative straightening of the shaft. There is no appreciable change in al ignment of the intra-articular fractures extending to the tibial plafond. There is mild widening of the lateral joint spaces with a slight talar tilt. There is a mildly displ aced posterior malleolar fracture with unchanged alignment. Again seen is a comminuted f racture of the distal 3rd of the shaft of the right fibula with improved alignment demonstrating relative straightening. There is moderate diffuse soft tissue swelling s urrounding the right ankle. IMPRESSION: 1. Interval improvement in a lignment of the comminuted distal tibial fractures with straightening of the shaft. 2. Improved alignment of the distal 3rd of the shaft of the right fibula with straightening of the shaft as well. 3. No appreciable change in alignment of the ankle mortise with slight widening laterally. 2019-05-28 EXAM: XR RIGHT KNEE 3 VIEWS [facility] 22:09:00-00:00 DATE: 05/28/2019 22:09 CDT Center INDICATION: - Pain after injury COMPARISON: None. TECHNIQUE: AP, lateral and oblique views of the right knee DISCUSSION: No acute fractur e or malalignment is identified. There is no excessive joint fluid. No soft tissue abnormality is identified. IMPRESSION: No acute abnormality. 2019-05-28 EXAM: XR RIGHT TIBIA-FIBULA 2 VIEWS [facility] 20:03:00-00:00 EXAM: XR RIGHT ANKLE [address] EXAM: XR RIGHT FOOT 3 VIEWS EXAM: XR RIGHT CALCANEUS 2 VIEWS DATE: 05/28/2019 20:03 CDT INDICATION: - Pain after injury COMPARISON: Same day ankle series. [place] SECTION: ER TECHNIQUE: 2 views of the ti nellie-fibula, 3 views of the ankle, 3 views of the foot, and 2 views of the calcaneus FINDINGS: Interval splint placement Tibia-fibula: No acute fracture or malalignment is identified proximally. Unchanged alignment of the c omminuted, intra-articular and transversely oriented fracture of the distal tibial metadiaphysis. The fracture lines involve the tibiofibular syndesmosis and the posterior ma lleolus, which is minimally displaced. There is lateral subluxation by one cortex width and apex lateral angulation of the distal fracture fragment/ankle. There is a transversely orie nted fracture of the distal tibial diaphysis with one cortex width posterior displacement and slight apex medial angulation. There is mild, asymmetric wi dening of the lateral clear space and lateral subluxation of the talus. Foot: A mildly displaced imp acted fracture of the 1st proximal phalanx head is present. The articular surface is incongruent, with a slight central stepoff. No additional fracture of the foot identified. Specifically, no calcaneal fracture. IMPRESSION: 1. Unchanged alignment of the comminuted, intra- articular tibial plafond. 2. Persistent widening of th e lateral clear space and mild lateral subluxation of the talus. 3. Unchanged displaced and angulated distal fibu lar diaphyseal fracture. 4. Impacted fracture of the 1st proximal phalanx head, with incongruent joint surface. 2019-05-28 EXAM: XR RIGHT TIBIA-FIBULA 2 VIEWS [facility] 20:03:00-00:00 EXAM: XR RIGHT ANKLE 3 VIEWS [facility] EXAM: XR RIGHT FOOT 3 VIEWS EXAM: XR RIGHT CALCANEUS 2 VIEWS DATE: 05/28/2019 20:03 CDT INDICATION: - Pain after injury COMPARISON: Same day ankle series. UT SECTION: ER TECHNIQUE: 2 views of the ti nellie-fibula, 3 views of the ankle, 3 views of the foot, and 2 views of the calcaneus FINDINGS: Interval splint placement Tibia-fibula: No acute fracture or malalignment is identified proximally. Unchanged alignment of the c omminuted, intra-articular and transversely oriented fracture of the distal tibial metadiaphysis. The fracture lines involve the tibiofibular syndesmosis and the posterior ma lleolus, which is minimally displaced. There is lateral subluxation by one cortex width and apex lateral angulation of the distal fracture fragment/ankle. There is a transversely orie nted fracture of the distal tibial diaphysis with one cortex width posterior displacement and slight apex medial angulation. There is mild, asymmetric wi dening of the lateral clear space and lateral subluxation of the talus. Foot: A mildly displaced imp acted fracture of the 1st proximal phalanx head is present. The articular surface is incongruent, with a slight central stepoff. No additional fracture of the foot identified. Specifically, no calcaneal fracture. IMPRESSION: 1. Unchanged alignment of the comminuted, intra- articular tibial plafond. 2. Persistent widening of th e lateral clear space and mild lateral subluxation of the talus. 3. Unchanged displaced and angulated distal fibu lar diaphyseal fracture. 4. Impacted fracture of the 1st proximal phalanx head, with incongruent joint surface. 2019-05-28 EXAM: XR RIGHT TIBIA-FIBULA 2 VIEWS [facility] 20:03:00-00:00 EXAM: XR RIGHT ANKLE 3 VIEWS [facility] EXAM: XR RIGHT FOOT 3 VIEWS EXAM: XR RIGHT CALCANEUS 2 VIEWS DATE: 05/28/2019 20:03 CDT INDICATION: - Pain after injury COMPARISON: Same day ankle series. UT SECTION: ER TECHNIQUE: 2 views of the ti nellie-fibula, 3 views of the ankle, 3 views of the foot, and 2 views of the calcaneus FINDINGS: Interval splint placement Tibia-fibula: No acute fracture or malalignment is identified proximally. Unchanged alignment of the c omminuted, intra-articular and transversely oriented fracture of the distal tibial metadiaphysis. The fracture lines involve the tibiofibular syndesmosis and the posterior ma lleolus, which is minimally displaced. There is lateral subluxation by one cortex width and apex lateral angulation of the distal fracture fragment/ankle. There is a transversely orie nted fracture of the distal tibial diaphysis with one cortex width posterior displacement and slight apex medial angulation. There is mild, asymmetric wi dening of the lateral clear space and lateral subluxation of the talus. Foot: A mildly displaced imp acted fracture of the 1st proximal phalanx head is present. The articular surface is incongruent, with a slight central stepoff. No additional fracture of the foot identified. Specifically, no calcaneal fracture. IMPRESSION: 1. Unchanged alignment of the comminuted, intra- articular tibial plafond. 2. Persistent widening of th e lateral clear space and mild lateral subluxation of the talus. 3. Unchanged displaced and angulated distal fibu lar diaphyseal fracture. 4. Impacted fracture of the 1st proximal phalanx head, with incongruent joint surface. 2019-05-28 EXAM: XR RIGHT TIBIA-FIBULA 2 VIEWS [facility] 20:03:00-00:00 EXAM: XR RIGHT ANKLE [address] EXAM: XR RIGHT FOOT 3 VIEWS EXAM: XR RIGHT CALCANEUS 2 VIEWS DATE: 05/28/2019 20:03 CDT INDICATION: - Pain after injury COMPARISON: Same day ankle series. UT SECTION: ER TECHNIQUE: 2 views of the ti nellie-fibula, 3 views of the ankle, 3 views of the foot, and 2 views of the calcaneus FINDINGS: Interval splint placement Tibia-fibula: No acute fracture or malalignment is identified proximally. Unchanged alignment of the c omminuted, intra-articular and transversely oriented fracture of the distal tibial metadiaphysis. The fracture lines involve the tibiofibular syndesmosis and the posterior ma lleolus, which is minimally displaced. There is lateral subluxation by one cortex width and apex lateral angulation of the distal fracture fragment/ankle. There is a transversely orie nted fracture of the distal tibial diaphysis with one cortex width posterior displacement and slight apex medial angulation. There is mild, asymmetric wi dening of the lateral clear space and lateral subluxation of the talus. Foot: A mildly displaced imp acted fracture of the 1st proximal phalanx head is present. The articular surface is incongruent, with a slight central stepoff. No additional fracture of the foot identified. Specifically, no calcaneal fracture. IMPRESSION: 1. Unchanged alignment of the comminuted, intra- articular tibial plafond. 2. Persistent widening of th e lateral clear space and mild lateral subluxation of the talus. 3. Unchanged displaced and angulated distal fibu lar diaphyseal fracture. 4. Impacted fracture of the 1st proximal phalanx head, with incongruent joint surface. 2019-05-28 EXAM: CT CERVICAL SPINE WITHOUT CONTRAST [facility] 19:39:00-00:00 DATE: 05/28/2019 19:39 CDT Center INDICATION: - outside study: fall, second interp retation requested COMPARISON: None TECHNIQUE: Noncontrast CT im ages of the cervical spine, obtained at [facility]. Axial, sagittal and coronal images provided. UT SECTION: ER FINDINGS: The spine is imaged from the skull bas e to the level of T1. No acute fracture or malalig nment is identified. There is likely degenerative grade 1 anterolisthesis of C3 on C4, C4 on C5 as there is no widening of the facets or secondary evidence of acute abnormali ty. The prevertebral space i s normal.. No soft tissue abnormality is identified. IMPRESSION: 1. No acute abnormality. 2. Likely degenerative grade 1 anterolisthesis of C3 on C4 and C4 on C5 with additional findings of mild multilevel degenerative changes of the cervical spine. This report is in general ag reement with the initial interpretation obtained from the referring facility. 2019-05-28 EXAM: CT BRAIN WITHOUT CONTRAST [facility] 19:37:00-00:00 DATE: 05/28/2019 Center INDICATION: - outside study: fall 2nd interpretation requested, initial images were obtained at [facility]. COMPARISON: None. TECHNIQUE: Axial CT images o f the brain were obtained. Sagittal and coronal reformats. IV contrast: None. FINDINGS: There is no parenchymal juan a, intra or extra-axial fluid collection, acute hydrocephalus, or herniation. There is no chronic abnormality. The calvarium and skull base are normal. The orbits, globes, paranasal sinuses and mastoi d air cells are normal. No abnormality of the extracranial soft tissues. IMPRESSION: No acute intracranial abnormality. I agree with the outside report.
[2023-04-08] MEDS ORDERED: NA CHLORIDE 0.9% 1,000 ML ONE (19:20)
[2023-04-08] MEDS ORDERED: FAMOTIDINE 20 MG/2 ML VIAL IV ONE (19:20)
[2023-04-08] MEDS ORDERED: ONDANSETRON 4 MG/2 ML VIAL ONE (19:20)
[2023-04-08] MEDS ORDERED: KETOROLAC 30 MG/ML INJ ONE (19:20)
[2023-04-08 19:43] LABS: Hematocrit 39.2 % (36.0-45.0); Lymphocytes % 26.4 % (15.3-44.8); MCV 95.7 fL (80-100); MPV 8.6 fL (7.6-11.3)
[2023-04-08 20:19] LABS: Albumin 3.6 g/dL (3.4-5.0); Bilirubin Total 0.2 mg/dL (0.2-1.0); Potassium 3.5 mEq/L (3.5-5.1); Protein, Total 6.4 g/dL (6.4-8.2)
--- NOTE | 2023-04-08 21:39 | RAD REPORT ---
EXAM DESCRIPTION: CT - Abdomen Pelvis W Contrast - 04/08/2023 9:11 pm CLINICAL HISTORY: ABD PAIN COMPARISON: Chest For Pe Angio dated 09/03/2019 TECHNIQUE: Thin cut axial CT imaging of the abdomen and pelvis was performed following intravenous a dministration of 100 mL Isovue 300. Multiplanar reformats were generated and reviewed. All CT scans are performed using dose optimization technique as appropriate and may include automated exposure control or mA/KV adjustment according to patient size. FINDINGS: No suspicious findings in the lung bases. The liver, adrenal glands, and pancreas show no suspicious findings. Gallbladder and biliary tree are also without suspicious finding. Small foci of hypoattenuation in the spleen, nonspecific, and could represent small cysts or hemangiomas Symmetric renal function is seen with no hydronephrosis or suspicious renal mass. No dilated bowel loops or bowel wall thickening. No free air, free fluid or inflammatory stranding. N o hernia, mass or bulky lymphadenopathy. The urinary bladder is without significant finding. No suspicious bony findings. IMPRESSION: No acute intra-abdominal process. Frontal findings as above.
--- NOTE | 2023-04-08 21:42 | EDPHYS ---
Physician Documentation [facility] Name: Dottie Cruz Age: 68 yrs Sex: Female : 1955 Arrival Date: 04/08/2023 Time: 18:58 Bed 8 Private MD: ED Physician Daniel Valdovinos HPI: 04/08 20:43 This 68 yrs old Female presents to ER via Ambulatory with complaints of Abdominal Pain. kb 20:44 The patient presents with abdominal pain in the right upper quadrant. Onset: The kb symptoms/episode began/occurred 3 week(s) ago. The symptoms do not radiate. Associated signs and symptoms: Pertinent positives: nausea, Pertinent negatives: constipation, diarrhea, fever, vomiting. The symptoms are described as constant. Modifying factors: The symptoms are alleviated by nothing, the symptoms are aggravated by nothing. Severity of pain: At its worst the pain was moderate in the emergency department the pain is unchanged. The patient has not experienced similar symptoms in the past. The patient has been recently seen by a physician: the patient's primary care provider. Historical: - PMHx: 19:04 Chronic pain; herniated disk; Hypertension; right ankle for compound fracture; torn ACL;kd3 - Immunization history:: Adult Immunizations up to date. - Social history:: Smoking status: Patient reports the use of cigarette tobacco products, smokes one pack cigarettes per day. ROS: 20:43 Constitutional: Negative for fever, chills, and weight loss. kb 20:43 Abdomen/GI: Positive for abdominal pain, nausea. 20:43 All other systems are negative. Exam: 20:43 Constitutional: This is a well developed, well nourished patient who is awake, alert, kb and in no acute distress. Head/Face: Normocephalic, atraumatic. ENT: Moist Mucous membranes Cardiovascular: Regular rate and rhythm with a normal S1 and S2. No gallops, murmurs, or rubs. No pulse deficits. Respiratory: Respirations even and unlabored. No increased work of breathing. Talking in full sentences Skin: Warm, dry with normal turgor. Normal color. MS/ Extremity: Pulses equal, no cyanosis. Neurovascular intact. Full, normal range of motion. Neuro: Awake and alert, GCS 15, oriented to person, place, time, and situation. Moves all extremities. Normal gait. 20:43 Abdomen/GI: Inspection: abdomen appears normal, Bowel sounds: normal, Palpation: soft, in all quadrants, mild abdominal tenderness, in the right upper quadrant. Vital Signs: 19:02 BP 129 / 91; Pulse 94; Resp 19; Temp 98.5(TE); Pulse Ox 97% on R/A; kd3 19:07 BP 121 / 71; Pulse 90; Resp 19; Pulse Ox 95% on R/A; kd3 19:29 BP 113 / 69; Pulse 72; Pulse Ox 95% on R/A; aa9 20:28 BP 105 / 58; Pulse 68; Resp 16 S; Pulse Ox 97% on R/A; aa9 21:49 BP 102 / 66; Pulse 67; Resp 16; Pulse Ox 98% on R/A; ll3 MDM: 19:00 Patient medically screened. kb 20:43 Data reviewed: vital signs, nurses notes. kb 20:44 External Records Reviewed: Outpatient radiology: recent US reviewed. Unremarkable kb gallbladder. 20:45 Differential diagnosis: cholecystitis, Cholelithiasis, gastritis, gastroesophageal kb reflux disease, non-specific abd pain, pancreatitis. 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 04/08 19:07 Order name: CBC with Diff; Complete Time: 19:54 kb 04/08 19:07 Order name: CMP; Complete Time: 20:32 kb 04/08 19:07 Order name: Lipase; Complete Time: 20:32 kb 04/08 19:54 Order name: CT Abd/Pelvis - IV Contrast Only; Complete Time: 21:40 kb 04/08 19:07 Order name: IV Saline Lock; Complete Time: 19:27 kb 04/08 19:07 Order name: Labs collected and sent; Complete Time: 19:27 kb Administered Medications: 19:22 Not Given (Patient Refused): TORadol - Ketorolac IVP 15 mg IVP once ll3 19:27 Drug: NS 0.9% IV 1000 ml Route: IV; Rate: 1 bolus; Site: right antecubital; aa9 20:22 Follow up: Response: No adverse reaction; IV Status: Completed infusion; IV Intake: aa9 1000ml 19:27 Drug: Famotidine IVP 20 mg Route: IVP; Site: right antecubital; aa9 20:22 Follow up: Response: No adverse reaction aa9 19:27 Drug: Ondansetron IVP 4 mg Route: IVP; Site: right antecubital; aa9 20:22 Follow up: Response: No adverse reaction aa9 Disposition Summary: 04/08/23 21:41 Discharge Ordered Location: Home kb Condition: Stable kb Diagnosis - Upper abdominal pain, unspecified kb Followup: kb - With: Emergency Department - When: As needed - Reason: Worsening of condition Followup: kb - With: Private Physician - When: 2 - 3 days - Reason: Recheck today's complaints, Continuance of care, Re-evaluation by your physician Discharge Instructions: - Discharge Summary Sheet kb - Abdominal Pain, Adult, [id number] kb Forms: - Medication Reconciliation Form kb - Thank You Letter kb - Antibiotic Education kb - Prescription Opioid Use kb Prescriptions: - Protonix 40 mg Oral Tablet - take 1 tablet by ORAL route once daily; 30 tablet; Refills: 0, Product kb Selection Permitted Signatures: Dispatcher [employer] Sol Varma, RADHA COLÓN-Anuradha Sumner, RN RN kd3 Patti Huffman RN RN aa9 Fiordaliza Walden RN ll3
--- NOTE | 2023-04-08 21:42 | ER ---
Nurse's Notes [facility] Name: Dottie Cruz Age: 68 yrs Sex: Female : 1955 Arrival Date: 04/08/2023 Time: 18:58 Bed 8 Private MD: Diagnosis: Upper abdominal pain, unspecified Presentation: 04/08 19:03 Chief complaint: Patient states: I have a lot of pain and tenderness in my right upper kd3 quadrant. I was told to go to but I don't have money for a new patient visit and it hurts so much. I had an ultrasound done and it just showed fatty liver. Ebola Screen: No symptoms or risks identified at this time. Initial Sepsis Screen: Does the patient meet any 2 criteria? No. Patient's initial sepsis screen is negative. Does the patient have a suspected source of infection? No. Patient's initial sepsis screen is negative. Risk Assessment: Do you want to hurt yourself or someone else? Patient reports no desire to harm self or others. Onset of symptoms was April 08, 2023. 19:03 Method Of Arrival: Ambulatory kd3 19:03 Acuity: YANG 3 kd3 19:05 Coronavirus screen: Vaccine status: Patient reports receiving the 2nd dose of the covid kd3 vaccine. Triage Assessment: 19:05 General: Appears uncomfortable, Behavior is calm, cooperative. Pain: Complains of pain kd3 in right upper quadrant. Neuro: Level of Consciousness is awake, alert, obeys commands, Oriented to person, place, time, situation. Historical: - PMHx: 19:04 Chronic pain; herniated disk; Hypertension; right ankle for compound fracture; torn ACL;kd3 - Immunization history:: Adult Immunizations up to date. - Social history:: Smoking status: Patient reports the use of cigarette tobacco products, smokes one pack cigarettes per day. Screenin:28 Abuse screen: Denies threats or abuse. Denies injuries from another. Nutritional aa9 screening: No deficits noted. Tuberculosis screening: No symptoms or risk factors identified. 21:48 [facility] ED Fall Risk Assessment (Adult) History of falling in the last 3 months, ll3 including since admission No falls in past 3 months (0 pts) Confusion or Disorientation No (0 pts) Intoxicated or Sedated No (0 pts) Impaired Gait No (0 pts) Mobility Assist Device Used No (0 pt) Altered Elimination No (0 pt) Score/Fall Risk Level 0 - 2 = Low Risk Oriented to surroundings, Maintained a safe environment, Educated pt \\T\\ family on fall prevention, incl call for assistance when getting out of bed. Assessment: 19:27 General: Appears in no apparent distress. comfortable, obese, Behavior is calm, aa9 cooperative. General: pt refused Toradol for pain medication, States, "The pain is tolerable right now." . Pain: Complains of pain in epigastric area and right upper quadrant Pain currently is 4 out of 10 on a pain scale. Quality of pain is described as tender, Is intermittent. Neuro: Level of Consciousness is awake, alert, obeys commands, Oriented to person, place, time, situation. Respiratory: Airway is patent Respiratory effort is even, unlabored. GI: Patient currently denies diarrhea, nausea, vomiting. : No signs and/or symptoms were reported regarding the genitourinary system. 20:18 Reassessment: Patient appears in no apparent distress at this time. pt ambulated to [facility] restroom down the bae independently. 21:08 Reassessment: Patient appears in no apparent distress at this time. CT at bedside. aa9 Vital Signs: 19:02 BP 129 / 91; Pulse 94; Resp 19; Temp 98.5(TE); Pulse Ox 97% on R/A; kd3 19:07 BP 121 / 71; Pulse 90; Resp 19; Pulse Ox 95% on R/A; kd3 19:29 BP 113 / 69; Pulse 72; Pulse Ox 95% on R/A; aa9 20:28 BP 105 / 58; Pulse 68; Resp 16 S; Pulse Ox 97% on R/A; aa9 21:49 BP 102 / 66; Pulse 67; Resp 16; Pulse Ox 98% on R/A; ll3 ED Course: 18:59 Patient arrived in ED. rg4 19:00 Sol Hammer FNP-C is PHCP. kb 19:00 Daniel Valdovinos MD is Attending Physician. kb 19:04 Triage completed. kd3 19:05 Arm band placed on right wrist. kd3 19:09 Patti Huffman, RN is Primary Nurse. aa9 19:25 Inserted saline lock: 20 gauge in right antecubital area, using aseptic technique. aa9 Blood collected. 19:27 CBC with Diff Sent. aa9 19:27 CMP Sent. aa9 19:27 Lipase Sent. aa9 19:29 Patient has correct armband on for positive identification. Bed in low position. Call aa9 light in reach. Side rails up X 1. Pulse ox on. NIBP on. Warm blanket given. 19:56 Radiology exam delayed due to lab results not completed at this time. (BUN/Creatinine). [id number] 21:12 CT Abd/Pelvis - IV Contrast Only In Process Unspecified. EDMS 21:48 No provider procedures requiring assistance completed. IV discontinued, intact, ll3 bleeding controlled, No redness/swelling at site. Pressure dressing applied. Administered Medications: 19:22 Not Given (Patient Refused): TORadol - Ketorolac IVP 15 mg IVP once ll3 19:27 Drug: NS 0.9% IV 1000 ml Route: IV; Rate: 1 bolus; Site: right antecubital; aa9 20:22 Follow up: Response: No adverse reaction; IV Status: Completed infusion; IV Intake: aa9 1000ml 19:27 Drug: Famotidine IVP 20 mg Route: IVP; Site: right antecubital; aa9 20:22 Follow up: Response: No adverse reaction aa9 19:27 Drug: Ondansetron IVP 4 mg Route: IVP; Site: right antecubital; aa9 20:22 Follow up: Response: No adverse reaction aa9 Medication: 21:48 VIS not applicable for this client. ll3 Intake: 20:22 IV: 1000ml; Total: 1000ml. aa9 Outcome: 21:41 Discharge ordered by MD. carranza 21:48 Discharged to home ambulatory. ll3 21:48 Condition: stable 21:48 Discharge instructions given to patient, Instructed on discharge instructions, follow up and referral plans. medication usage, Demonstrated understanding of instructions, follow-up care, medications, Prescriptions given X 1. 21:51 Patient left the ED. ll3 Signatures: Dispatcher [employer] EDMS Sol Hammer, RADHA COLÓN-Chiqui Garcia rg4 Fiordaliza Walden RN RN ll3 Anuradha Tena RN RN 3 Patti Huffman RN RN aa9 Mariam Person [id number]
[2023-04-08 22:15] VITALS: TEMP 98.5
[2023-04-08 22:20] VITALS: BP 102/66; O2SAT 98
== END 2023-04-08 21:51 | disposition home or self-care (01) ==
LOC: ER 18:58
DX: R10.11 Right upper quadrant pain (principal); I10 Essential (primary) hypertension; F17.210 Nicotine dependence, cigarettes, uncomplicated
CPT/HCPCS: 96361; 85025; 36415; 83690; 80053; 74177; 96375; 96374; 99284; Q9967; J2405; J7030